=== PATIENT | female | born 1935 | race Caucasian/White ===

== ENCOUNTER → 2018-03-30 11:52 | Outpatient (CLI) | payer MEDICARE, OTHER, SELFPAY ==
[2018-03-30 12:18] LABS: Absolute Neutrophil Count 3.7 X10^3/uL (2.0-7.7); Basophil# 0.02 X10^3/uL; Basophil% 0.3 % (0-1); Eosinophil# 0.18 X10^3/uL; Eosinophils% 2.8 % (0-5); Hematocrit 38.2 % (37-47); Hemoglobin 11.9 g/dl (12.0-15.0); Lymphocyte % 27.7 % (19-41); Mean Corp Hgb Conc 31.2 g/gl (32-36); Mean Corpuscular Hgb 26.6 pg (27.0-32.0); Mean Corpuscular Volume 85.3 fL (81-99); Mean Platelet Vol. 10.2 fl (6.2-12.0); Monocyte# 0.83 X10^3/uL; Monocyte% 12.8 % (0-10); Neutrophil # 3.66 X10^3/uL (2.7-7.7); Neutrophil % 56.2 % (47-70); Platelet Count 354 K/mm3 (150-450); RBC Distribution Width CV 15.1 % (11.6-14.6); RBC Distribution Width SD 47.3 fl (35.1-43.9); Red Blood Count 4.48 M/mm3 (4.2-5.4); White Blood Count 6.5 K/mm3 (4.4-11.0)
[2018-03-30 12:19] LABS: POSITIVE COUNT NO; POSITIVE DIFFERENTIAL NO; POSITIVE MORPHOLOGY NO
[2018-03-30 12:55] LABS: Vitamin D,25 Hydroxy 29.9 ng/mL (29.95-100.01)
[2018-03-30 12:56] LABS: ALB/GLOB Ratio 0.9 RATIO (0.9-2.4); AST(SGOT) 27 U/L (15-37); Alanine Aminotransfer ALT/SGPT 29 U/L (13-56); Albumin, Serum 3.8 g/dL (3.2-5.0); Alkaline Phosphatase 97 U/L (45-117); Anion Gap 5 (5-15); BUN 16 mg/dL (7-18); Calcium,Total 9.4 mg/dL (8.5-10.1); Chloride 103 mmol/L (98-107); EST Glomerular Filtration Rate 56 mL/min (>60); Est Glom Filt Rate - Afr Amer 68 mL/min (>60); Globulin 4.3 g/dL (2.2-4.2); Glucose 83 mg/dL (74-106); Potassium 4.8 mmol/L (3.5-5.1); Protein, Total 8.1 g/dL (6.4-8.2); Sodium Level 137 mmol/L (136-145); Thyroid Stim Hormone (TSH) 1.35 uIU/mL (0.358-3.74)
== END ==
PROVIDERS: Family Provider Family Medicine Geriatric Medicine; PCP Family Medicine Geriatric Medicine; Visit Provider Family Medicine Geriatric Medicine
DX: I10 Essential (primary) hypertension (principal); E55.9 Vitamin D deficiency, unspecified
CPT/HCPCS: 36415; 80053; 82306; 84443; 85025

== ENCOUNTER → 2018-04-05 06:01 | Outpatient (CLI) | payer MEDICARE, OTHER, SELFPAY ==
--- NOTE | 2018-04-05 09:24 | STRESSREP ---
Stress Test Report Date: 04/05/2018 Procedure: Exercise tolerance test/imaging study Indications: Chest pain Consent: Per the patient Procedure: The patient exercised on a Robert protocol for 4 minutes completing Stage 1 and 1 minute of Stage II achieving a peak heart rate of 122 bpm (88 % predicted maximal heart rate) with a peak blood pressure 150/82 mmHg and a peak MET capacity of 5 METs. The baseline ECG demonstrated normal sinus rhythm; possible anterior IA of indeterminate age; possible inferior IA of indeterminate age. The peak exercise ECG demonstrated no obvious ECG changes. There were rare PVCs during recovery. The functional capacity was considered average. There was no complaint of chest discomfort during exercise or recovery. The examination was discontinued secondary to you and leg discomfort. Impression: 1. Technically adequate (percent predicted maximal heart rate greater than 85%) exercise tolerance test 2. Peak exercise ECG demonstrated no obvious ECG changes 3. There were rare PVCs during recovery. 4. Nuclear images pending Myocardial perfusion imaging study: Technique: The patient was injected with 11.3 mCi of technetium 99m Cardiolite and subsequently rest SPECT Cardiolite nuclear imaging was obtained in the horizontal long, vertical long, and short axis views. The patient exercised on a Robert protocol for 4 minutes completing Stage 1 and 1 minute of Stage II achieving a peak heart rate of 122 bpm (88 % predicted maximal heart rate) with a peak blood pressure 150/82 mmHg and a peak MET capacity of 5 METs. The patient was injected with 33.7 mCi of technetium 99m Cardiolite and subsequently stress SPECT Cardiolite nuclear imaging was obtained in the horizontal long, vertical long, and short axis views. A gated Cardiolite study at peak stress was obtained. Interpretation: Rest and stress SPECT Cardiolite nuclear imaging status post realignment, normalization, and attenuation correction, demonstrates the appearance of diminished myocardial perfusion/tracer uptake in portions of the basal inferior septal and basal inferior segments without significant change between rest and stress. Diminished end systolic thickening and brightening in the aforementioned areas. The gated Cardiolite study demonstrates diminished myocardial thickening and inward wall motion in the aforementioned areas. The reported LVEF is 58 %. Impression: 1. Rest and stress SPECT Cardiolite nuclear imaging demonstrate an area of diminished myocardial perfusion/tracer uptake in portions of the basal inferoseptal and basal inferior segments without significant change between rest and stress appearing compatible with an area of previous myocardial injury/infarction, however, contribution from soft tissue attenuation/artifact cannot necessarily be excluded. There are no myocardial perfusion changes consider diagnostic for associated stress-induced myocardial ischemia. 2. The gated Cardiolite study reports an LVEF of 58 %. This note was generated with BookNowation software. It may contain incorrect words, spelling, and punctuation that were not noted in checking the note before signing.
--- NOTE | 2018-04-05 09:30 | STRESSREP_ITS ---
Stress Test Report Date: 04/05/2018 Procedure: Exercise tolerance test/imaging study Indications: Chest pain Consent: Per the patient Procedure: The patient exercised on a Robert protocol for 4 minutes completing Stage 1 and 1 minute of Stage II achieving a peak heart rate of 122 bpm (88 % predicted maximal heart rate) with a peak blood pressure 150/82 mmHg and a peak MET capacity of 5 METs. The baseline ECG demonstrated normal sinus rhythm; possible anterior KS of indeterminate age; possible inferior KS of indeterminate age. The peak exercise ECG demonstrated no obvious ECG changes. There were rare PVCs during recovery. The functional capacity was considered average. There was no complaint of chest discomfort during exercise or recovery. The examination was discontinued secondary to you and leg discomfort. Impression: 1. Technically adequate (percent predicted maximal heart rate greater than 85% ) exercise tolerance test 2. Peak exercise ECG demonstrated no obvious ECG changes 3. There were rare PVCs during recovery. 4. Nuclear images pending Myocardial perfusion imaging study: Technique: The patient was injected with 11.3 mCi of technetium 99m Cardiolite and subsequently rest SPECT Cardiolite nuclear imaging was obtained in the horizontal long, vertical long, and short axis views. The patient exercised on a Robert protocol for 4 minutes completing Stage 1 and 1 minute of Stage II achieving a peak heart rate of 122 bpm (88 % predicted maximal heart rate) with a peak blood pressure 150/82 mmHg and a peak MET capacity of 5 METs. The patient was injected with 33.7 mCi of technetium 99m Cardiolite and subsequently stress SPECT Cardiolite nuclear imaging was obtained in the horizontal long, vertical long, and short axis views. A gated Cardiolite study at peak stress was obtained. Interpretation: Rest and stress SPECT Cardiolite nuclear imaging status post realignment, normalization, and attenuation correction, demonstrates the appearance of diminished myocardial perfusion/tracer uptake in portions of the basal inferior septal and basal inferior segments without significant change between rest and stress. Diminished end systolic thickening and brightening in the aforementioned areas. The gated Cardiolite study demonstrates diminished myocardial thickening and inward wall motion in the aforementioned areas. The reported LVEF is 58 %. Impression: 1. Rest and stress SPECT Cardiolite nuclear imaging demonstrate an area of diminished myocardial perfusion/tracer uptake in portions of the basal inferoseptal and basal inferior segments without significant change between rest and stress appearing compatible with an area of previous myocardial injury/ infarction, however, contribution from soft tissue attenuation/artifact cannot necessarily be excluded. There are no myocardial perfusion changes consider diagnostic for associated stress-induced myocardial ischemia. 2. The gated Cardiolite study reports an LVEF of 58 %. This note was generated with Pronotaation software. It may contain incorrect words, spelling, and punctuation that were not noted in checking the note before signing.
== END ==
PROVIDERS: Family Provider Family Medicine Geriatric Medicine; PCP Family Medicine Geriatric Medicine; Visit Provider Family Medicine Geriatric Medicine
DX: R07.9 Chest pain, unspecified (principal)
CPT/HCPCS: 78452; 93017; A9500; A4216

== ENCOUNTER → 2018-05-09 10:48 | Outpatient (CLI) | payer MEDICARE, OTHER, SELFPAY ==
--- NOTE | 2018-05-09 10:50 | ECHOD_ITS ---
Reason For Study: Chest Pain Procedure This was a 2D Doppler, Color Flow transthoracic echocardiogram. Exam performed in department. Left Ventricle Normal LV size. Sigmoid septum. Left ventricular systolic function is normal. The estimated ejection fraction is 60 %. Transmitral diastolic flow velocities suggest mild (stage 1) diastolic dysfunction (reversed pattern). Mild segmental systolic dysfunction (see wall motion). The rest of the wall segments are normal. Posterior-Basal: Hypokinetic. Basal inferoseptal: Hypokinetic. Infero -Basal: Akinetic. Right Ventricle Normal RV size. Normal systolic function. Atria Normal left atrium. Normal right atrium. Mitral Valve Normal mitral valve. Mild-Moderate (1-2+) eccentric mitral valve insufficiency. Tricuspid Valve Normal tricuspid valve. Mild tricuspid valve insufficiency. Pulmonary artery systolic pressure is 30 mmHg. Aortic Valve Trisinus/trileaflet aortic valve. Mild focal aortic valve calcification. Pulmonic Valve Normal pulmonic valve. Great Vessels Mild to moderately dilated aortic root. The pulmonary artery is normal size. Normal inferior vena cava. Pericardium/Pleural No pericardial effusion. MMode/2D Measurements & Calculations LVIDd: 3.6 cm IVSd: 1.3 cm Ao root diam: 4.0 cm LVIDs: 3.1 cm LVPWd: 0.95 cm RVDd: 2.7 cm FS: 13.7 % LAV(MOD-bp): 56.6 ml LVAd ap4: 29.8 cm2 SV(MOD-sp4): 39.8 ml LAV(MOD-bp) Indexed: 31.6 ml/m2 EDV(MOD-sp4): 90.3 ml LAV(MOD-sp2): 54.0 ml EDV(sp4-el): 95.6 ml LAV(MOD-sp4): 60.3 ml LVAs ap4: 20.8 cm2 ESV(MOD-sp4): 50.4 ml ESV(sp4-el): 51.8 ml EF(MOD-sp4): 44.1 % EF(sp4-el): 45.8 % SV(sp4-el): 43.8 ml LA A4 area: 18.7 cm2 RA A4 area: 11.8 cm2 Time Measurements MV dec time: 0.13 sec Doppler Measurements & Calculations MV E max daniel: 116.6 cm/sec Lat Peak E' Daniel: 6.5 cm/sec Med Peak E' Daniel: 5.2 cm/sec MV A max daniel: 155.7 cm/sec E/E' lat: 18.1 E/E' med: 22.3 MV E/A: 0.75 MV V2 max: 182.0 cm/sec MV P1/2t max daniel: 136.8 cm/sec Ao V2 max: 131.0 cm/sec MV max P.3 mmHg MV P1/2t: 75.3 msec Ao max P.9 mmHg MV V2 mean: 96.2 cm/sec MV dec slope: 531.9 cm/sec2 Ao V2 mean: 94.6 cm/sec MV mean P.4 mmHg MVA(P1/2t): 2.9 cm2 Ao mean P.8 mmHg MV V2 VTI: 41.4 cm Ao V2 VTI: 26.6 cm LV V1 max: 104.0 cm/sec PA V2 max: 75.1 cm/sec TR max daniel: 251.8 cm/sec LV V1 max P.3 mmHg TR max P.4 mmHg LV V1 mean P.0 mmHg LV V1 mean: 64.3 cm/sec LV V1 VTI: 18.3 cm Interpretation Summary Normal LV size. Left ventricular systolic function is normal. The estimated ejection fraction is 60 %. Transmitral diastolic flow velocities suggest mild (stage 1) diastolic dysfunction (reversed pattern). Mild tricuspid valve insufficiency. Pulmonary artery systolic pressure is 30 mmHg. Ordering Physician: Deangelo Dhillon Referring Physician: Deangelo Dhillon Performed By: Pete Gomez RCS
== END ==
PROVIDERS: Family Provider Family Medicine Geriatric Medicine; PCP Family Medicine Geriatric Medicine; Visit Provider Internal Medicine Cardiovascular Disease
DX: R07.89 Other chest pain (principal)
CPT/HCPCS: 93306

== ENCOUNTER → 2018-08-30 11:57 | Outpatient (CLI) | payer MEDICARE, OTHER, SELFPAY ==
--- NOTE | 2018-08-30 11:59 | RAD_ITS ---
STUDY: X-RAY CHEST REASON FOR EXAM: Female, 83 years old. Preop, no chest complaints TECHNIQUE: PA and lateral views of the chest. COMPARISON: Prior study 12/14/2015 FINDINGS: There is minimal right mid lung field fibrosis, stable in the interval. There is no demonstrated pleural abnormality. Normal size heart. Normal mediastinum and kraig. Normal visualized pulmonary arteries. There are calcified plaques of the thoracic aorta. There is demineralization of the osseous structures. Normal visualized ribs, clavicles, and shoulders. There is no demonstrated abnormality of the visualized soft tissue structures of the upper abdomen. RAD/Chest PA and Lateral IMPRESSION: Minimal right mid lung field fibrosis, stable in the interval. Calcified plaques of the thoracic aorta. Generalized osteopenia. No acute cardiopulmonary disease process is seen. Chest findings are stable in the interval. Electronically Signed: Michael Parks MD at 16:55 EDT , Service support ,
[2018-08-30 13:22] LABS: Absolute Lymphocyte Count 1.86 X10^3/ul (0.83-4.51); Absolute Neutrophil Count 3.8 X10^3/uL (2.0-7.7); Basophil# 0.03 X10^3/uL; Basophil% 0.4 % (0-1); Eosinophil# 0.22 X10^3/uL; Eosinophils% 3.3 % (0-5); Hematocrit 36.1 % (37-47); Hemoglobin 11.4 g/dl (12.0-15.0); Lymphocyte # 1.86 X10^3/ul (4.0); Lymphocyte % 27.8 % (19-41); Mean Corp Hgb Conc 31.6 g/gl (32-36); Mean Corpuscular Volume 85.5 fL (81-99); Mean Platelet Vol. 10.7 fl (6.2-12.0); Monocyte# 0.75 X10^3/uL; Monocyte% 11.2 % (0-10); Neutrophil # 3.82 X10^3/uL (2.7-7.7); POSITIVE COUNT NO; POSITIVE DIFFERENTIAL NO; POSITIVE MORPHOLOGY NO; Platelet Count 363 K/mm3 (150-450); RBC Distribution Width CV 14.9 % (11.6-14.6); RBC Distribution Width SD 45.3 fl (35.1-43.9); Red Blood Count 4.22 M/mm3 (4.2-5.4); White Blood Count 6.7 K/mm3 (4.4-11.0)
[2018-08-30 13:45] LABS: Anion Gap 10 (5-15); BUN 21 mg/dL (7-18); BUN/Creat Ratio 23.6 RATIO (10-20); Calcium,Total 8.9 mg/dL (8.5-10.1); Chloride 103 mmol/L (98-107); Creatinine, Serum 0.89 mg/dL (0.55-1.02); EST Glomerular Filtration Rate 64 mL/min (>60); Est Glom Filt Rate - Afr Amer 78 mL/min (>60); Glucose 104 mg/dL (74-106); Potassium 3.7 mmol/L (3.5-5.1); Sodium Level 140 mmol/L (136-145)
== END ==
PROVIDERS: Family Provider Family Medicine Geriatric Medicine; PCP Family Medicine Geriatric Medicine; Referring Provider Internal Medicine Cardiovascular Disease; Visit Provider Internal Medicine Cardiovascular Disease
DX: R94.39 Abnormal result of other cardiovascular function study (principal)
CPT/HCPCS: 36415; 71046; 80048; 85025

== ENCOUNTER 2018-09-03 07:00 | Day surgery (SDC) | payer MEDICARE, OTHER, SELFPAY ==
[2018-08-31 09:13] VITALS: BMI 28.1
--- NOTE | 2018-09-03 08:47 | CL.D_ITS ---
Patient Name: TRISTEN ZAMARRIPA Study Date: 09/03/2018 Performing: Deangelo Dhillon MD Ht: 64.17 inches 163 cm : 1935 Wt: 163.14 lbs 74 kg Age: 83 Gender: female BSA: 1.8 PROCEDURE(S) PERFORMED [id number]/COR/LV CLINICAL PROFILE AND INDICATIONS Indications: Suspected CAD Heart Failure: None Stress/Imaging Stress Test w/SPECT MPI: Yes Result: NegativeStress Test with SPECT MPI: Negative Angina Classification Anginal Classification w/in 2 Weeks: No symptoms CAD Presentations: No Sxs, no angina. CONCLUSIONS Moderate coronary artery disease involving moderately severe mid to distal circumflex artery with tot ally occluded posterior descending artery. Inferior basal akinesis and posterior hypokinesis is note d. RECOMMENDATIONS Medical therapy DESCRIPTION OF PROCEDURE The patient arrived to the procedure lab. The risks and benefits of the procedure as well as a full d escription of our services here and current unavailability of surgical backup were fully explained to the patient and/or their significant other prior to the catheterization. The Timeout was completed, verifying the correct patient and procedure. The patient's procedural site was prepped and draped in the usual fashion. Local anesthetic was given subcutaneously to right radial region with Lidocaine 2% . Using a modified Seldinger technique, arterial access was obtained via the right radial artery, a 6 Fr sheath was inserted. Left Coronary Artery selective angiography was performed in multiple views u sing a 5 Fr. 4.0 [place] catheter. Left Ventriculography was performed in FRIEDMAN projection using a 5 Fr. Pigtail catheter. LV to AO pullback pressures were then recorded.The arterial sheath was pulled and a TR Band was applied for hemostasis CORONARY ANGIOGRAPHY DOMINANCE: Right Dominant LEFT HEART ASSESSMENT Left Ventricular Ejection Fraction: by LV Gram 60 % Inferior Basal Akinesis. Posterior Basal Hypokinesis - Moderate Normal Left Ventricular systolic function LEFT MAIN: Mild calcification, Mild luminal irregularities LEFT ANTERIOR DECENDING ARTERY: Mild luminal irregularities less than 30% DIAGONAL 1: Ostial - 50 % Stenosis CIRCUMFLEX ARTERY: Mild luminal irregularities less than 30% MID CIRC: 65 % Stenosis RIGHT CORONARY ARTERY: PROX RCA: Mild luminal irregularities MID RCA: Moderate luminal irregularities up to 50% DISTAL RCA: 70 % Stenosis RT PDA: Ostial - is occluded COLLATERAL FLOW: Collateral flow from Left to Right COMPLICATIONS No Complications PROCEDURE MEDICATIONS Versed 0.5 mg IV Fentanyl 25 mcg IV Fentanyl 25 mcg IV Oxygen: 2 L/min via nasal cannula IV Bolus: .9 NaCl 200 ml total 09/03/2018 08:09:48 SUMMARY OF HEMODYNAMIC DATA Time AIR REST ECG 07:18:26 AO 100/58 (77) SA 08:09:02 LV 120/0, 9 08:26:16 LV 126/2, 12 08:26:23 LV 124/3, 14 08:27:29 LV 119/3, 12 08:27:35 LVp 131/3, 15 08:27:40 AOp 132/59 (91) 08:27:46 Signed By Deangelo Dhillon MD On 09/03/2018 08:46:25 Deangelo Dhillon MD
== END 2018-09-03 11:10 | disposition home or self-care (01) ==
LOC: CLSP 07:01
PROVIDERS: Family Provider Family Medicine Geriatric Medicine; PCP Family Medicine Geriatric Medicine; Referring Provider Internal Medicine Cardiovascular Disease; Visit Provider Internal Medicine Cardiovascular Disease
DX: I25.10 Atherosclerotic heart disease of native coronary artery without angina pectoris (principal); I25.82 Chronic total occlusion of coronary artery; I10 Essential (primary) hypertension; D64.9 Anemia, unspecified; K21.9 Gastro-esophageal reflux disease without esophagitis; E55.9 Vitamin D deficiency, unspecified; F41.9 Anxiety disorder, unspecified; R94.31 Abnormal electrocardiogram [ECG] [EKG]; R94.39 Abnormal result of other cardiovascular function study; Z79.02 Long term (current) use of antithrombotics/antiplatelets; Z79.82 Long term (current) use of aspirin; Z79.899 Other long term (current) drug therapy; Z90.710 Acquired absence of both cervix and uterus
CPT/HCPCS: 93458; 99152; 99153; Q9967; C1769; C1894

== ENCOUNTER → 2019-04-11 14:06 | Outpatient (CLI) | payer MEDICARE, OTHER, SELFPAY ==
[2018-12-06 15:42] VITALS: BMI 28.8
[2019-04-11 17:37] LABS: Absolute Lymphocyte Count 1.96 X10^3/ul (0.83-4.51); Absolute Neutrophil Count 2.8 X10^3/uL (2.0-7.7); Basophil# 0.02 X10^3/uL; Basophil% 0.4 % (0-1); Eosinophils% 3.5 % (0-5); Hematocrit 33.7 % (37-47); Hemoglobin 10.6 g/dl (12.0-15.0); Lymphocyte # 1.96 X10^3/ul (4.0); Lymphocyte % 34.6 % (19-41); Mean Corp Hgb Conc 31.5 g/gl (32-36); Mean Corpuscular Hgb 26.5 pg (27.0-32.0); Mean Corpuscular Volume 84.3 fL (81-99); Mean Platelet Vol. 11.5 fl (6.2-12.0); Monocyte# 0.69 X10^3/uL; Monocyte% 12.2 % (0-10); Neutrophil # 2.79 X10^3/uL (2.7-7.7); Neutrophil % 49.1 % (47-70); Platelet Count 307 K/mm3 (150-450); RBC Distribution Width CV 14.9 % (11.6-14.6); RBC Distribution Width SD 44.9 fl (35.1-43.9); White Blood Count 5.7 K/mm3 (4.4-11.0)
[2019-04-11 17:48] LABS: POSITIVE COUNT NO; POSITIVE DIFFERENTIAL NO; POSITIVE MORPHOLOGY NO
[2019-04-11 17:51] LABS: ALB/GLOB Ratio 0.9 RATIO (0.9-2.4); AST(SGOT) 20 U/L (15-37); Alanine Aminotransfer ALT/SGPT 27 U/L (13-56); Albumin, Serum 3.4 g/dL (3.2-5.0); Alkaline Phosphatase 101 U/L (45-117); Anion Gap 5 (5-15); BUN 15 mg/dL (7-18); BUN/Creat Ratio 16.6 RATIO (10-20); Chloride 107 mmol/L (98-107); EST Glomerular Filtration Rate 63 mL/min (>60); Est Glom Filt Rate - Afr Amer 77 mL/min (>60); Globulin 3.8 g/dL (2.2-4.2); Glucose 85 mg/dL (74-106); Protein, Total 7.2 g/dL (6.4-8.2); Sodium Level 139 mmol/L (136-145); Thyroid Stim Hormone (TSH) 0.96 uIU/mL (0.358-3.74)
[2019-04-11 17:54] LABS: Vitamin D,25 Hydroxy 23.8 ng/mL (29.95-100.01)
== END ==
PROVIDERS: Family Provider Family Medicine Geriatric Medicine; PCP Family Medicine Geriatric Medicine; Visit Provider Family Medicine Geriatric Medicine
DX: I10 Essential (primary) hypertension (principal); E55.9 Vitamin D deficiency, unspecified
CPT/HCPCS: 36415; 80053; 82306; 84443; 85025

== ENCOUNTER → 2020-04-14 13:35 | Outpatient (CLI) | payer MEDICARE, OTHER, SELFPAY ==
[2020-01-29 14:44] VITALS: BMI 28.6
[2020-04-14 16:20] LABS: Absolute Lymphocyte Count 1.88 X10^3/uL (0.83-4.51); Basophil# 0.03 X10^3/uL; Basophil% 0.4 % (0-1); Eosinophil# 0.13 X10^3/uL; Eosinophils% 1.9 % (0-5); Hematocrit 38.6 % (37-47); Hemoglobin 12.1 g/dL (12.0-15.0); Lymphocyte # 1.88 X10^3/ul (4.0); Lymphocyte % 28.2 % (19-41); Mean Corp Hgb Conc 31.3 g/dL (32-36); Mean Corpuscular Hgb 28.1 pg (27.0-32.0); Mean Corpuscular Volume 89.6 fL (81-99); Mean Platelet Vol. 11.1 fl (6.2-12.0); Monocyte# 0.58 X10^3/uL; Monocyte% 8.7 % (0-10); NRBC Flagged by Analyzer 0 % (0-5); Neutrophil # 4.02 X10^3/uL (2.7-7.7); Neutrophil % 60.4 % (47-70); Platelet Count 336 K/mm3 (150-450); RBC Distribution Width CV 14.2 % (11.6-14.6); RBC Distribution Width SD 46.1 fl (35.1-43.9); Red Blood Count 4.31 M/mm3 (4.2-5.4); White Blood Count 6.7 K/mm3 (4.4-11.0)
[2020-04-14 16:47] LABS: AST(SGOT) 28 U/L (15-37); Alanine Aminotransfer ALT/SGPT 38 U/L (13-56); Albumin, Serum 3.8 g/dL (3.2-5.0); Alkaline Phosphatase 92 U/L (45-117); Anion Gap 9 (5-15); BUN 18 mg/dL (7-18); BUN/Creat Ratio 19.9 RATIO (10-20); Calcium,Total 9.3 mg/dL (8.5-10.1); Chloride 100 mmol/L (98-107); Creatinine, Serum 0.91 mg/dL (0.55-1.02); EST Glomerular Filtration Rate 63 mL/min (>60); Est Glom Filt Rate - Afr Amer 76 mL/min (>60); Globulin 3.9 g/dL (2.2-4.2); Glucose 87 mg/dL (74-106); Potassium 3.9 mmol/L (3.5-5.1); Protein, Total 7.7 g/dL (6.4-8.2); Sodium Level 135 mmol/L (136-145); Thyroid Stim Hormone (TSH) 0.65 uIU/mL (0.358-3.74)
[2020-04-14 17:11] LABS: Vitamin D,25 Hydroxy 22.1 ng/mL
== END ==
PROVIDERS: PCP Family Medicine Geriatric Medicine; Visit Provider Family Medicine Geriatric Medicine
DX: E55.9 Vitamin D deficiency, unspecified (principal); I10 Essential (primary) hypertension
CPT/HCPCS: 36415; 80053; 82306; 84443; 85025

== ENCOUNTER → 2021-04-15 13:06 | Outpatient (CLI) | payer MEDICARE, OTHER, SELFPAY ==
[2021-01-26 11:01] VITALS: BMI 27.6
[2021-04-15 17:18] LABS: Absolute Lymphocyte Count 1.48 X10^3/uL (0.83-4.51); Absolute Neutrophil Count 6.4 X10^3/uL (2.0-7.7); Basophil# 0.03 X10^3/uL; Basophil% 0.3 % (0-1); Eosinophil# 0.09 X10^3/uL; Hematocrit 36.3 % (37-47); Hemoglobin 11.4 g/dL (12.0-15.0); Lymphocyte # 1.48 X10^3/ul (0.83-4.51); Lymphocyte % 16.6 % (19-41); Mean Corp Hgb Conc 31.4 g/dL (32-36); Mean Corpuscular Hgb 27.3 pg (27.0-32.0); Mean Corpuscular Volume 87.1 fL (81-99); Mean Platelet Vol. 11.1 fl (6.2-12.0); Monocyte# 0.94 X10^3/uL; Monocyte% 10.5 % (0-10); NRBC Flagged by Analyzer 0 % (0-5); Neutrophil # 6.38 X10^3/uL (2.7-7.7); Neutrophil % 71.4 % (47-70); Platelet Count 341 K/mm3 (150-450); RBC Distribution Width CV 14.7 % (11.6-14.6); RBC Distribution Width SD 46.9 fl (35.1-43.9); Red Blood Count 4.17 M/mm3 (4.2-5.4); White Blood Count 8.9 K/mm3 (4.4-11.0)
[2021-04-15 17:36] LABS: Vitamin D,25 Hydroxy 18.1 ng/mL
[2021-04-15 17:49] LABS: ALB/GLOB Ratio 1.1 RATIO (0.9-2.4); AST(SGOT) 23 U/L (15-37); Alanine Aminotransfer ALT/SGPT 27 U/L (13-56); Alkaline Phosphatase 86 U/L (45-117); Anion Gap 7 (5-15); BUN 21 mg/dL (7-18); BUN/Creat Ratio 18.6 RATIO (10-20); Calcium,Total 9.4 mg/dL (8.5-10.1); Chloride 101 mmol/L (98-107); Creatinine, Serum 1.13 mg/dL (0.55-1.02); EST Glomerular Filtration Rate 49 mL/min (>60); Est Glom Filt Rate - Afr Amer 59 mL/min (>60); Globulin 3.8 g/dL (2.2-4.2); Glucose 76 mg/dL (74-106); Potassium 4.1 mmol/L (3.5-5.1); Protein, Total 7.8 g/dL (6.4-8.2); Sodium Level 133 mmol/L (136-145); Thyroid Stim Hormone (TSH) 0.96 uIU/mL (0.358-3.74)
== END ==
PROVIDERS: PCP Family Medicine Geriatric Medicine; Visit Provider Family Medicine Geriatric Medicine
DX: E55.9 Vitamin D deficiency, unspecified (principal); I10 Essential (primary) hypertension
CPT/HCPCS: 36415; 80053; 82306; 84443; 85025

== ENCOUNTER → 2021-08-20 13:01 | Outpatient (CLI) | payer MEDICARE, OTHER, SELFPAY | PROVIDERS: PCP Family Medicine Geriatric Medicine; Referring Provider Family Medicine Geriatric Medicine; Visit Provider Family Medicine Geriatric Medicine | DX: R68.83 Chills (without fever) (principal) | CPT/HCPCS: 87635; 87804; 87807; C9803; U0005; U0003 ==

== ENCOUNTER 2021-12-22 14:44 | Outpatient (CLI) | payer MEDICARE, OTHER, SELFPAY ==
--- NOTE | 2021-12-22 14:50 | RAD_ITS ---
STUDY: X-RAY - LUMBAR SPINE REASON FOR EXAM: Female, 86 years old. LOW BACK PAIN TECHNIQUE: 2 view(s) of the lumbar spine were obtained. COMPARISON: None FINDINGS: Normal lumbar lordosis. There is a dextroscoliosis. Mild depression of the superior endplate at L1. Normal disc space heights. Generalized osteopenia. The soft tissue structures are unremarkable. Calcified aorta. RAD/Lumbar Spine 2 or 3 Views IMPRESSION: Degenerative changes and scoliosis of the lumbar spine. Mild central depression of the L1 superior endplate. Electronically Signed: Iglesia Cano DO at 16:12 EST Reading Location ID and State: [facility] / [place] Tel [phone], Service support ,
== END 2021-12-22 23:59 | disposition short-term general hospital (02) ==
LOC: RAD 14:45
PROVIDERS: PCP Family Medicine Geriatric Medicine; Visit Provider Family Medicine Geriatric Medicine
DX: M54.50 Low back pain, unspecified (principal)
CPT/HCPCS: 72100

== ENCOUNTER 2022-01-21 10:00 | Outpatient (RCR) | payer MEDICARE, OTHER, SELFPAY ==
--- NOTE | 2022-01-11 15:06 | HP.PTEVAL ---
Patient's Visit Information TRISTEN ZAMARRIPA is a 86 year old F referred to Physical Therapy by Dr. David Mace MD with a diagnosis of LOW BACK PAIN. Date of Evaluation: 01/11/22 Physical Therapist: Walker Barros, PT, Cert MDT, OCS - Visit Plan Frequency: 2x /Week Duration: 4 Weeks Plan: PT INTERVENTIONS POSTURAL EX'S ,DLS ABD/BACK ,LE FLEXABLITY AND MODALTIES - Subjective This 86 y/o female presents to physical therapy with low back pain. Patient has had back pain since Dec 17 pushing and pulling a tot. Patient seen DR had x-rays DDD. Patient had 7 day for pain MEDS. Patient pain located symmetrical lumbar. Aggravating factors bending ,lifting ,getting up from chair to straighten up. Alleviating factors okay with standing and walking, heat. Denies paresthesia/tingling-. Bowel/bladder -. Coughing/sneezing +. Patient able to sleep at night. Patient pain affects QOL and function. SOCAIL: . VOCATION: retired - Pain Bilateral Back Pain Intensity (Out of 10): 3 Pain Intensity Range: 10 - Objective POSTURE: mild forward posture. GAIT: reciprocal pattern. NEURO: denies paresthesia/tingling , reflexes L3-4,L4-5,L5-S1. PALAPTION: tender LS. SYMMTRIES: ALIGN. MMT: quads/hams 4/5,hup flexion 4-/5,hp abd 4-/5,ankle 4/5. LUMBAR ROM: flexion mod loss pain ( + gowers sign) ,extension mod loss, side glides mod loss. FLEXABLITY: hamstrings mild tight - Special Tests L/S Slump test left side: Negative L/S Left Straight Leg Raise: Negative L/S Right Straight Leg Raise: Negative Lumbar Standing: Flexion - Mechanical Response: No effect Lumbar Standing: Flexion - Symptoms During Testing: Increases Lumbar Standing: Flexion - Symptoms After Testing: No worse Lumbar Standing: Extension - Mechanical Response: No effect Lumbar Standing: Extension - Symptoms During Testing: Increases Lumbar Standing: Extension - Symptoms After Testing: No worse Lumbar Standing: Right Side Glides - Mechanical Response: No effect Lumbar Standing: Right Side [place] - Symptoms During Testing: Increases Lumbar Standing: Right Side [place] - Symptoms After Testing: No worse Lumbar Standing: Left Side [place] - Mechanical Response: No effect Lumbar Standing: Left Side [place] - Symptoms During Testing: Increases Lumbar Standing: Left Side [place] - Symptoms After Testing: No worse Lumbar Lying: Flexion - Mechanical Response: No effect Lumbar Lying: Flexion - Symptoms During Testing: Increases Lumbar Lying: Flexion - Symptoms After Testing: No worse - Balance/Special Test Scores Oswestry Low Back Score: 26 - Goals Goal 1:: Patient to be I with HEP Goal 2:: Patient to improve posture/body mechanics 80% of the time. Goal Time Frame: 4-6 Weeks Goal 3:: Patient to demonstrate 50% improvement with decrease pain and function Goal Time Frame: 4-6 Weeks Goal 4:: Patient to improve lumbar ROM for function of recovery to lift laundry basket Goal Time Frame: 4-6 Weeks Goal 5:: Patient to improve back oswestry score by 5 points to improve QOL and function Goal Time Frame: 4-6 Weeks - Rehabilitation Potential Physical Therapy Diagnosis: Patient strained low back while lifting tot thus has pain ,pain with motion testing, and positioning thus will benefit from skilled PT Rehabilitation Potential: Good - Anticipated Interventions Patient/Client Instruction: Educate patient on: Condition, Plan of Care For the Purpose of:: To decrease pain, To increase ROM, To improve muscle performance and motor function, To improve ability to perform ADL's, To increase tolerance to activity/condition/position, To improve performance and independence with ADL's, To improve ability of physical actions for home/community/work/leisure, To improve health of tissue, To decrease soft tissue restriction, To increase flexibility/ROM Therapeutic Exercise to Include: Strength training, Postural training, Flexibilty training, Active ROM, Dynamic Lumbar Stabilization For the Purpose of:: To decrease pain, To increase ROM, To improve muscle performance and motor function, To improve ability to perform ADL's, To increase tolerance to activity/condition/position, To improve ability of physical actions for home/community/work/leisure, To improve health of tissue, To decrease soft tissue restriction, To increase flexibility/ROM, To reduce risk of recurrence Manual Therapy Techniques to Include: Soft tissue mobilization For the Purpose of:: To decrease pain, To increase ROM, To improve nutrient delivery to tissue, To increase oxygenation perfusion, To improve health of tissue, To decrease soft tissue restriction TENS: Yes IF ES: Yes Cryotherapy (ice pack, ice massage): Yes Thermo therapy (hot pack): Yes Ultrasound (thermal/non thermal): Yes For the Purpose of:: To decrease pain, To increase ROM, To improve nutrient delivery to tissue, To increase oxygenation perfusion, To improve health of tissue, To decrease soft tissue restriction Thank you for the opportunity to evaluate your patient. For Medicare and Medicare HMO plans, please review the plan of care and approve it. It will need to be FAXED BACK to us at [phone] for Medicare purposes. For Medicare only, by signing this I certify the plan of care. Please let me know if there are questions or concerns regarding this plan of care. Physician Signature: Date:
== END 2022-01-21 19:00 | disposition home or self-care (01) ==
LOC: PT 10:00
PROVIDERS: PCP Family Medicine Geriatric Medicine; Referring Provider Family Medicine Geriatric Medicine; Visit Provider Family Medicine Geriatric Medicine
DX: M54.50 Low back pain, unspecified (principal)
CPT/HCPCS: 97110; 97162

== ENCOUNTER 2022-01-25 11:30 | Outpatient (CLI) | payer MEDICARE, OTHER, SELFPAY ==
--- NOTE | 2022-01-25 11:36 | RAD_ITS ---
STUDY: X-RAY - RIGHT KNEE REASON FOR EXAM: Female, 87 years old. KNEE PAIN TECHNIQUE: 3 view(s) of the knee. COMPARISON: 01/13/2014 FINDINGS: Normal visualized distal femur. Normal visualized proximal tibia and fibula. Normal proximal tibiofibular articulation. There is moderate degenerative arthrosis of the medial femorotibial compartment with moderate joint space narrowing. There is mild degenerative arthrosis of the lateral femorotibial compartment. There is mild degenerative arthrosis of the patellofemoral articulation. The soft tissue structures are unremarkable. RAD/Knee 3 Views IMPRESSION: Degenerative arthrosis. Electronically Signed: Yariel Manrique MD at 12:16 EST ,
--- NOTE | 2022-01-25 11:36 | RAD_ITS ---
STUDY: X-RAY CHEST REASON FOR EXAM: Female, 87 years old. cad TECHNIQUE: PA and lateral views of the chest. COMPARISON: 08/30/2018 FINDINGS: The lungs are clear and expanded. There is no demonstrated pleural abnormality. Normal size heart. Normal mediastinum and kraig. Normal visualized pulmonary arteries. Normal visualized aortic arch and descending thoracic aorta. Normal visualized thoracic spine. Normal visualized ribs, clavicles, and shoulders. There is no demonstrated abnormality of the visualized soft tissue structures of the upper abdomen. RAD/Chest PA and Lateral IMPRESSION: Normal x-ray examination of the chest. Electronically Signed: Yariel Manrique MD at 12:15 EST ,
--- NOTE | 2022-01-25 11:36 | RAD_ITS ---
STUDY: X-RAY - RIGHT ANKLE REASON FOR EXAM: Female, 87 years old. ANKLE PAIN TECHNIQUE: 3 view(s) of the ankle. COMPARISON: None. FINDINGS: Normal visualized distal tibia and fibula. Normal medial and lateral malleoli. Normal tibiotalar articulation and ankle mortise. Normal visualized talus and calcaneus. The visualized subtalar, talonavicular, calcaneocuboid and tarsal articulations are normal. Lateral soft tissue swelling consistent with ligamentous injury. RAD/Ankle min 3 Views IMPRESSION: No acute fracture or dislocation. Lateral soft tissue swelling consistent with meniscal injury. Electronically Signed: Yariel Manrique MD at 12:14 EST ,
[2022-01-25 12:49] LABS: Absolute Lymphocyte Count 1.33 X10^3/uL (0.83-4.51); Absolute Neutrophil Count 5.7 X10^3/uL (2.0-7.7); Basophil# 0.01 X10^3/uL; Basophil% 0.1 % (0-1); Eosinophil# 0.05 X10^3/uL; Eosinophils% 0.6 % (0-5); Hematocrit 32.1 % (37-47); Hemoglobin 9.8 g/dL (12.0-15.0); Lymphocyte # 1.33 X10^3/ul (0.83-4.51); Lymphocyte % 16.8 % (19-41); Mean Corp Hgb Conc 30.5 g/dL (32-36); Mean Corpuscular Hgb 24.3 pg (27.0-32.0); Mean Corpuscular Volume 79.7 fL (81-99); Mean Platelet Vol. 10.4 fl (6.2-12.0); Monocyte# 0.82 X10^3/uL; Monocyte% 10.4 % (0-10); NRBC Flagged by Analyzer 0 % (0-5); Neutrophil # 5.66 X10^3/uL (2.7-7.7); Neutrophil % 71.7 % (47-70); Platelet Count 395 K/mm3 (150-450); RBC Distribution Width CV 18.4 % (11.6-14.6); RBC Distribution Width SD 53.1 fl (35.1-43.9); Red Blood Count 4.03 M/mm3 (4.2-5.4); White Blood Count 7.9 K/mm3 (4.4-11.0)
[2022-01-25 13:18] LABS: Anion Gap 9 (5-15); BUN 26 mg/dL (7-18); BUN/Creat Ratio 23.6 RATIO (10-20); Calcium,Total 9.7 mg/dL (8.5-10.1); Chloride 102 mmol/L (98-107); EST Glomerular Filtration Rate 50 mL/min (>60); Est Glom Filt Rate - Afr Amer 61 mL/min (>60); Glucose 99 mg/dL (74-106); Potassium 3.9 mmol/L (3.5-5.1); Sodium Level 135 mmol/L (136-145)
== END 2022-01-25 23:59 | disposition home or self-care (01) ==
PROVIDERS: Internal Medicine Cardiovascular Disease; PCP Family Medicine Geriatric Medicine; Referring Provider Family Medicine Geriatric Medicine; Visit Provider Family Medicine Geriatric Medicine
DX: M17.11 Unilateral primary osteoarthritis, right knee (principal); M25.571 Pain in right ankle and joints of right foot; I10 Essential (primary) hypertension; R07.9 Chest pain, unspecified
CPT/HCPCS: 36415; 71046; 73562; 73610; 80048; 85025

== ENCOUNTER 2022-01-31 16:35 | Outpatient (CLI) | payer MEDICARE, OTHER, SELFPAY ==
[2022-01-31 17:06] LABS: Absolute Lymphocyte Count 1.53 X10^3/uL (0.83-4.51); Absolute Neutrophil Count 4.8 X10^3/uL (2.0-7.7); Basophil# 0.02 X10^3/uL; Basophil% 0.3 % (0-1); Eosinophil# 0.15 X10^3/uL; Eosinophils% 2.1 % (0-5); Hematocrit 29.1 % (37-47); Lymphocyte # 1.53 X10^3/ul (0.83-4.51); Mean Corp Hgb Conc 30.9 g/dL (32-36); Mean Corpuscular Hgb 24.4 pg (27.0-32.0); Mean Corpuscular Volume 78.9 fL (81-99); Mean Platelet Vol. 10.5 fl (6.2-12.0); Monocyte# 0.74 X10^3/uL; Monocyte% 10.1 % (0-10); NRBC Flagged by Analyzer 0 % (0-5); Neutrophil # 4.81 X10^3/uL (2.7-7.7); Neutrophil % 65.8 % (47-70); Platelet Count 369 K/mm3 (150-450); RBC Distribution Width CV 18.7 % (11.6-14.6); RBC Distribution Width SD 53.3 fl (35.1-43.9); RET-HE 28.5 pg (30-35); Red Blood Count 3.69 M/mm3 (4.2-5.4); Reticulocyte Count 2.06 % (0.5-1.5); White Blood Count 7.3 K/mm3 (4.4-11.0)
[2022-01-31 18:23] LABS: Vitamin B12 339 pg/mL (211-911)
[2022-01-31 18:35] LABS: Ferritin 38 ng/mL (8-252); Iron 27 ug/dL (50-170); Iron Binding Capacity,Total 381 ug/dL (250-450); PERCENT IRON SATURATION 7.1 % (15.0-55.0)
== END 2022-01-31 23:59 | disposition home or self-care (01) ==
LOC: POLAB3 16:36
PROVIDERS: PCP Family Medicine Geriatric Medicine; Visit Provider Family Medicine Geriatric Medicine
DX: D64.9 Anemia, unspecified (principal)
CPT/HCPCS: 36415; 82607; 82728; 82746; 83540; 83550; 85025; 85045

== ENCOUNTER 2022-02-07 07:00 | Day surgery (SDC) | payer MEDICARE, OTHER, SELFPAY ==
[2022-02-04 07:12] VITALS: BMI 27.3
--- NOTE | 2022-02-07 09:40 | CL.D_ITS ---
Patient Name: TRISTEN ZAMARRIPA Study Date: 02/07/2022 Performing: Deangelo Dhillon MD Ht: 64.17 inches 163 cm : 1935 Wt: 158.73 lbs 72 kg Age: 87 Gender: female BSA: 1.78 PROCEDURE(S) PERFORMED DC01-(33770)LHC/COR/LV CLINICAL PROFILE AND INDICATIONS Indications: Suspected CAD Heart Failure: None Stress/Imaging Stress/Image Study Performed: No CAD Presentations: Stable angina. 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 The ej ection fraction is preserved with segmental wall motion abnormalities involving the basal inferior wa ll. In comparison to the previous catheterization from 2018 the above findings appear to be similar RECOMMENDATIONS Would recommend aggressive medical therapy for now DESCRIPTION OF PROCEDURE The patient arrived to the procedure lab. The risks and benefits of the procedure as well as a full d escription of our services here and current unavailability of surgical backup were fully explained to the patient and/or their significant other prior to the catheterization. The Timeout was completed, verifying the correct patient and procedure. The patient's procedural site was prepped and draped in the usual fashion. Local anesthetic was given subcutaneously to right radial region with Lidocaine 2% . Using a modified Seldinger technique, arterial access was obtained via the right radial artery, a 6 Fr sheath was inserted. Left Coronary Artery selective angiography was performed in multiple views u sing a 5 Fr. 4.0 [place] catheter. Right Coronary Artery selective angiography was then performed in mu ltiple views using a 5 Fr. 4.0 [place] catheter. Left Coronary Artery selective angiography was perform ed in multiple views using a 5 Fr. JL3.5 catheter. Left Ventriculography was performed in FRIEDMAN projection using a 5 Fr. Pigtail catheter. LV to AO pullback pressures were then recorded.The art erial sheath was pulled and a TR Band was applied for hemostasis CORONARY ANGIOGRAPHY DOMINANCE: Right Dominant LEFT HEART ASSESSMENT Left Ventricular Ejection Fraction: by LV Gram 55 % Inferior Basal Hypokinesis - Severe Normal Left Ventricular systolic function LEFT MAIN: Angiographically normal LEFT ANTERIOR DESCENDING ARTERY: Proximal left anterior descending artery with 30% stenosis in mid se gment with diffuse stenosis but no areas with high-grade stenosis more than 40%. DIAGONAL 1: Ostial - 70 % Stenosis CIRCUMFLEX ARTERY: Proximal and ostial 70% stenosis and diffusely diseased vessel with mid 70% stenos is. First obtuse marginal branch with 90% stenosis in the mid circumflex artery also has an 80% sten osis. RIGHT CORONARY ARTERY: Dominant right coronary artery with diffuse proximal disease of up to 40% in t he posterior lateral vessel which is subtotally occluded and an ostial posterior descending artery wi th a 90% stenosis. COMPLICATIONS No Complications PROCEDURE MEDICATIONS Versed 1 mg IV Fentanyl 50 mcg IV Oxygen: 2 L/min via nasal cannula Heparin given IA 02/07/2022 08:40:33 Verapamil 2.5mg, Ntg 100mcgs, 3000 units of Heparin given IA 02/07/2022 08:40:33 SUMMARY OF HEMODYNAMIC DATA Time AIR REST ECG 07:28:12 ECG 08:05:35 Art 121/51 (75) 08:27:06 AO 92/47 (64) SA 08:40:17 LV 128/2, 11 08:57:59 LV 123/1, 7 08:58:06 LV 120/7, 12 08:58:37 LV 117/6, 11 08:58:43 LVp 117/4, 12 08:58:48 AOp 120/52 (80) 08:58:53 Signed By Deangelo Dhillon MD On 02/07/2022 9:39:29 AM Deangelo Dhillon MD
== END 2022-02-07 23:59 | disposition home or self-care (01) ==
LOC: CLSP 07:02
PROVIDERS: PCP Family Medicine Geriatric Medicine; Referring Provider Internal Medicine Cardiovascular Disease; Visit Provider Internal Medicine Cardiovascular Disease
DX: I25.118 Atherosclerotic heart disease of native coronary artery with other forms of angina pectoris (principal); I10 Essential (primary) hypertension; R07.9 Chest pain, unspecified; K21.9 Gastro-esophageal reflux disease without esophagitis; Z79.82 Long term (current) use of aspirin; Z79.899 Other long term (current) drug therapy
CPT/HCPCS: 93005; 93458; 99152; 99153; J7040; C1769; C1894; Q9967

== ENCOUNTER 2022-02-08 12:55 | Outpatient (CLI) | payer MEDICARE, OTHER, SELFPAY ==
[2022-02-08 13:38] LABS: Basophil# 0.03 X10^3/uL; Basophil% 0.4 % (0-1); Eosinophil# 0.17 X10^3/uL; Hematocrit 30.7 % (37-47); Hemoglobin 9.6 g/dL (12.0-15.0); Lymphocyte % 15.6 % (19-41); Mean Corp Hgb Conc 31.3 g/dL (32-36); Mean Corpuscular Hgb 24.6 pg (27.0-32.0); Mean Corpuscular Volume 78.7 fL (81-99); Mean Platelet Vol. 10.8 fl (6.2-12.0); Monocyte# 0.81 X10^3/uL; Monocyte% 9.7 % (0-10); NRBC Flagged by Analyzer 0 % (0-5); Neutrophil # 5.97 X10^3/uL (2.7-7.7); Neutrophil % 71.8 % (47-70); Platelet Count 384 K/mm3 (150-450); RBC Distribution Width CV 19.1 % (11.6-14.6); RBC Distribution Width SD 54.4 fl (35.1-43.9); White Blood Count 8.3 K/mm3 (4.4-11.0)
[2022-02-08 14:02] LABS: Homocysteine 11.7 umol/L (3.2-10.7)
[2022-02-14 21:33] LABS: Methylmalonic Acid Bld 362 nmol/L (0-378)
== END 2022-02-08 23:59 | disposition home or self-care (01) ==
LOC: POLAB3 12:56
PROVIDERS: PCP Family Medicine Geriatric Medicine; Visit Provider Family Medicine Geriatric Medicine
DX: D64.9 Anemia, unspecified (principal); E72.11 Homocystinuria
CPT/HCPCS: 36415; 83090; 83921; 85025

== ENCOUNTER → 2022-05-12 | Outpatient (CLI) | payer MEDICARE, OTHER, SELFPAY ==
[2022-05-12 16:19] LABS: Absolute Lymphocyte Count 1.44 X10^3/uL (0.83-4.51); Absolute Neutrophil Count 5.5 X10^3/uL (2.0-7.7); Basophil# 0.04 X10^3/uL; Basophil% 0.5 % (0-1); Eosinophil# 0.18 X10^3/uL; Eosinophils% 2.2 % (0-5); Hematocrit 34.2 % (37-47); Hemoglobin 10.6 g/dL (12.0-15.0); Lymphocyte # 1.44 X10^3/ul (0.83-4.51); Mean Corpuscular Hgb 26.6 pg (27.0-32.0); Mean Corpuscular Volume 85.7 fL (81-99); Mean Platelet Vol. 10.2 fl (6.2-12.0); Monocyte# 0.83 X10^3/uL; Monocyte% 10.4 % (0-10); NRBC Flagged by Analyzer 0 % (0-5); Neutrophil # 5.49 X10^3/uL (2.7-7.7); Neutrophil % 68.5 % (47-70); Platelet Count 488 K/mm3 (150-450); RBC Distribution Width CV 15.9 % (11.6-14.6); RBC Distribution Width SD 49.8 fl (35.1-43.9); Red Blood Count 3.99 M/mm3 (4.2-5.4)
[2022-05-12 16:29] LABS: Vitamin D,25 Hydroxy 30.4 ng/mL
[2022-05-12 16:39] LABS: ALB/GLOB Ratio 0.7 RATIO (0.9-2.4); AST(SGOT) 14 U/L (15-37); Alanine Aminotransfer ALT/SGPT 22 U/L (13-56); Albumin, Serum 3.2 g/dL (3.2-5.0); Alkaline Phosphatase 105 U/L (45-117); Anion Gap 7 (5-15); BUN 20 mg/dL (7-18); BUN/Creat Ratio 20.4 RATIO (10-20); Calcium,Total 9.4 mg/dL (8.5-10.1); Chloride 101 mmol/L (98-107); Creatinine, Serum 0.98 mg/dL (0.55-1.02); EST Glomerular Filtration Rate 57 mL/min (>60); Est Glom Filt Rate - Afr Amer 69 mL/min (>60); Globulin 4.5 g/dL (2.2-4.2); Glucose 120 mg/dL (74-106); Potassium 3.8 mmol/L (3.5-5.1); Protein, Total 7.7 g/dL (6.4-8.2); Sodium Level 133 mmol/L (136-145); Thyroid Stim Hormone (TSH) 0.77 uIU/mL (0.358-3.74)
== END | disposition home or self-care (01) ==
LOC: POLAB3 13:09
PROVIDERS: PCP Family Medicine Geriatric Medicine; Visit Provider Family Medicine Geriatric Medicine
DX: I10 Essential (primary) hypertension (principal); E55.9 Vitamin D deficiency, unspecified
CPT/HCPCS: 36415; 80053; 82306; 84443; 85025

== ENCOUNTER → 2022-09-07 | Outpatient (CLI) | payer MEDICARE, OTHER, SELFPAY ==
[2022-09-07 17:27] LABS: Absolute Lymphocyte Count 1.66 X10^3/uL (0.83-4.51); Absolute Neutrophil Count 6.1 X10^3/uL (2.0-7.7); Basophil# 0.03 X10^3/uL; Basophil% 0.3 % (0-1); Eosinophil# 0.18 X10^3/uL; Hematocrit 34.3 % (37-47); Hemoglobin 10.5 g/dL (12.0-15.0); Lymphocyte # 1.66 X10^3/ul (0.83-4.51); Lymphocyte % 18.8 % (19-41); Mean Corp Hgb Conc 30.6 g/dL (32-36); Mean Corpuscular Hgb 26.4 pg (27.0-32.0); Mean Corpuscular Volume 86.2 fL (81-99); Mean Platelet Vol. 10.4 fl (6.2-12.0); Monocyte# 0.72 X10^3/uL; Monocyte% 8.1 % (0-10); NRBC Flagged by Analyzer 0 % (0-5); Neutrophil # 6.05 X10^3/uL (2.7-7.7); Neutrophil % 68.5 % (47-70); Platelet Count 588 K/mm3 (150-450); RBC Distribution Width CV 15.7 % (11.6-14.6); RBC Distribution Width SD 49.9 fl (35.1-43.9); Red Blood Count 3.98 M/mm3 (4.2-5.4); White Blood Count 8.8 K/mm3 (4.4-11.0)
[2022-09-07 18:11] LABS: Vitamin D,25 Hydroxy 28.8 ng/mL
[2022-09-07 18:19] LABS: ALB/GLOB Ratio 0.6 RATIO (0.9-2.4); AST(SGOT) 24 U/L (15-37); Alanine Aminotransfer ALT/SGPT 21 U/L (13-56); Albumin, Serum 3.1 g/dL (3.2-5.0); Alkaline Phosphatase 113 U/L (45-117); Anion Gap 9 (5-15); BUN 20 mg/dL (7-18); BUN/Creat Ratio 20.1 RATIO (10-20); Calcium,Total 9.7 mg/dL (8.5-10.1); Chloride 100 mmol/L (98-107); EST Glomerular Filtration Rate 56 mL/min (>60); Est Glom Filt Rate - Afr Amer 68 mL/min (>60); Globulin 4.8 g/dL (2.2-4.2); Glucose 98 mg/dL (74-106); Protein, Total 7.9 g/dL (6.4-8.2); Sodium Level 134 mmol/L (136-145); Thyroid Stim Hormone (TSH) 0.98 uIU/mL (0.358-3.74)
== END | disposition home or self-care (01) ==
LOC: POLAB3 13:40
PROVIDERS: PCP Family Medicine Geriatric Medicine; Visit Provider Family Medicine Geriatric Medicine
DX: E55.9 Vitamin D deficiency, unspecified (principal); I10 Essential (primary) hypertension
CPT/HCPCS: 36415; 80053; 82306; 84443; 85025

== ENCOUNTER → 2022-11-28 | Outpatient (CLI) | payer MEDICARE, OTHER, SELFPAY ==
[2022-11-28 16:46] LABS: Absolute Lymphocyte Count 1.57 X10^3/uL (0.83-4.51); Absolute Neutrophil Count 3.7 X10^3/uL (2.0-7.7); Basophil# 0.03 X10^3/uL; Basophil% 0.5 % (0-1); Eosinophil# 0.13 X10^3/uL; Eosinophils% 2.1 % (0-5); Hematocrit 34.5 % (37-47); Hemoglobin 10.7 g/dL (12.0-15.0); Lymphocyte # 1.57 X10^3/ul (0.83-4.51); Lymphocyte % 25.6 % (19-41); Mean Corpuscular Hgb 26.4 pg (27.0-32.0); Mean Corpuscular Volume 85.2 fL (81-99); Monocyte# 0.68 X10^3/uL; Monocyte% 11.1 % (0-10); NRBC Flagged by Analyzer 0 % (0-5); Neutrophil # 3.71 X10^3/uL (2.7-7.7); Neutrophil % 60.4 % (47-70); Platelet Count 362 K/mm3 (150-450); RBC Distribution Width CV 14.9 % (11.6-14.6); RBC Distribution Width SD 46.1 fl (35.1-43.9); Red Blood Count 4.05 M/mm3 (4.2-5.4); White Blood Count 6.1 K/mm3 (4.4-11.0)
[2022-11-28 17:24] LABS: Anion Gap 8 (5-15); BUN 28 mg/dL (7-18); BUN/Creat Ratio 20.4 RATIO (10-20); Calcium,Total 9.3 mg/dL (8.5-10.1); Chloride 104 mmol/L (98-107); Creatinine, Serum 1.37 mg/dL (0.55-1.02); EST Glomerular Filtration Rate 39 mL/min (>60); Est Glom Filt Rate - Afr Amer 47 mL/min (>60); Glucose 91 mg/dL (74-106); Potassium 4.4 mmol/L (3.5-5.1); Sodium Level 137 mmol/L (136-145)
[2022-11-28 17:28] LABS: BNP,B-Type NATRIURETIC PEPTIDE 83.3 pg/mL (0-100)
== END | disposition home or self-care (01) ==
LOC: LAB 14:17
PROVIDERS: PCP Family Medicine Geriatric Medicine; Referring Provider Nurse Practitioner Gerontology; Visit Provider Nurse Practitioner Gerontology
DX: R06.00 Dyspnea, unspecified (principal)
CPT/HCPCS: 36415; 80048; 83880; 85025

== ENCOUNTER → 2022-12-05 | Outpatient (CLI) | payer MEDICARE, OTHER, SELFPAY ==
--- NOTE | 2022-12-05 14:43 | ECHOD_ITS ---
Reason For Study: [place] Procedure This was a 2D Doppler, Color Flow transthoracic echocardiogram. Exam performed in department. Left Ventricle Normal LV size. The estimated ejection fraction is 55 %. Mild to moderate segmental systolic dysfunction (see wall motion). Stage 1 diastolic dysfunction. Posterior-Basal: Severely hypokinetic. Infero-Basal: Aneurysmal. Basal inferoseptal: Dyskinetic. The rest of the wall segments are normal. Right Ventricle Normal RV size. Normal systolic function. Atria Normal left atrium. Normal right atrium. Mitral Valve Bileaflet diffuse mitral valve thickening. Mild (1+) eccentric mitral valve insufficiency. Tricuspid Valve Normal tricuspid valve. Mild (1+) tricuspid valve insufficiency. Pulmonary artery systolic pressure is 33 mmHg. Aortic Valve Trisinus/trileaflet aortic valve. Mild focal aortic valve calcification. Mild (1+) aortic valve insufficiency. Pulmonic Valve Normal pulmonic valve. Great Vessels Normal aortic root. The pulmonary artery is normal size. Normal inferior vena cava. Pericardium/Pleural No pericardial effusion. MMode/2D Measurements & Calculations LVIDd: 3.7 cm IVSd: 1.2 cm Ao root diam: 3.4 cm LVIDs: 2.9 cm LVPWd: 1.0 cm RVDd: 3.1 cm FS: 20.7 % LAV(MOD-bp): 53.7 ml LVAd ap4: 23.7 cm2 SV(MOD-sp4): 35.5 ml LAV(MOD-bp) Indexed: 30.0 ml/m2 LVLd ap4: 7.2 cm LAV(MOD-sp2): 53.8 ml EDV(MOD-sp4): 62.3 ml LAV(MOD-sp4): 47.6 ml EDV(sp4-el): 65.8 ml LVAs ap4: 13.6 cm2 LVLs ap4: 6.0 cm ESV(MOD-sp4): 26.8 ml ESV(sp4-el): 26.2 ml EF(MOD-sp4): 57.0 % EF(sp4-el): 60.3 % SV(sp4-el): 39.7 ml LA A4 area: 17.7 cm2 LA dimension(2D): 4.1 cm RA A4 area: 8.7 cm2 Time Measurements MV dec time: 0.26 sec Doppler Measurements & Calculations MV E max daniel: 99.9 cm/sec Lat Peak E' Daniel: 9.2 cm/sec Med Peak E' Daniel: 4.3 cm/sec MV A max daniel: 135.4 cm/sec E/E' lat: 10.9 E/E' med: 23.2 MV E/A: 0.74 MV V2 max: 156.2 cm/sec Ao V2 max: 159.9 cm/sec MV max P.8 mmHg MV dec slope: 381.5 cm/sec2 Ao max P.2 mmHg MV V2 mean: 92.2 cm/sec Ao V2 mean: 120.0 cm/sec MV mean P.8 mmHg Ao mean P.2 mmHg MV V2 VTI: 37.1 cm Ao V2 VTI: 34.7 cm AI max daniel: 358.0 cm/sec LV V1 max: 122.6 cm/sec PA V2 max: 95.7 cm/sec AI max P.3 mmHg LV V1 max P.0 mmHg AI dec slope: 182.2 cm/sec2 AI P1/2t: 575.5 msec PI end-d daniel: 76.5 cm/sec TR max daniel: 256.2 cm/sec TR max P.4 mmHg ECHO/Echo Complete Interpretation Summary Normal LV size. The estimated ejection fraction is 55 %. Mild to moderate segmental systolic dysfunction (see wall motion). Stage 1 diastolic dysfunction. Mild (1+) eccentric mitral valve insufficiency. Mild (1+) aortic valve insufficiency. Ordering Physician: Deloris Boothe Referring Physician: David Mace Chi Performed By: Rossi Soto RDCS, RVT
== END | disposition home or self-care (01) ==
LOC: CVS 14:41
PROVIDERS: PCP Family Medicine Geriatric Medicine; Visit Provider Nurse Practitioner Gerontology
DX: R06.09 Other forms of dyspnea (principal)
CPT/HCPCS: 93306

== ENCOUNTER → 2022-12-06 | Outpatient (CLI) | payer MEDICARE, OTHER, SELFPAY ==
[2022-12-06 17:41] LABS: Absolute Lymphocyte Count 1.68 X10^3/uL (0.83-4.51); Absolute Neutrophil Count 3.3 X10^3/uL (2.0-7.7); Basophil# 0.02 X10^3/uL; Basophil% 0.3 % (0-1); Eosinophil# 0.16 X10^3/uL; Eosinophils% 2.7 % (0-5); Hematocrit 33.3 % (37-47); Hemoglobin 10.1 g/dL (12.0-15.0); Lymphocyte # 1.68 X10^3/ul (0.83-4.51); Lymphocyte % 28.8 % (19-41); Mean Corp Hgb Conc 30.3 g/dL (32-36); Mean Corpuscular Hgb 25.8 pg (27.0-32.0); Mean Corpuscular Volume 85.2 fL (81-99); Monocyte% 10.3 % (0-10); NRBC Flagged by Analyzer 0 % (0-5); Neutrophil # 3.33 X10^3/uL (2.7-7.7); Neutrophil % 57.2 % (47-70); Platelet Count 372 K/mm3 (150-450); RBC Distribution Width CV 15.5 % (11.6-14.6); RBC Distribution Width SD 46.9 fl (35.1-43.9); Red Blood Count 3.91 M/mm3 (4.2-5.4); White Blood Count 5.8 K/mm3 (4.4-11.0)
[2022-12-06 18:29] LABS: AST(SGOT) 24 U/L (15-37); Alanine Aminotransfer ALT/SGPT 28 U/L (13-56); Albumin, Serum 3.6 g/dL (3.2-5.0); Alkaline Phosphatase 86 U/L (45-117); Anion Gap 8 (5-15); BUN 27 mg/dL (7-18); BUN/Creat Ratio 25.5 RATIO (10-20); Calcium,Total 9.3 mg/dL (8.5-10.1); Chloride 104 mmol/L (98-107); Creatinine, Serum 1.06 mg/dL (0.55-1.02); EST Glomerular Filtration Rate 52 mL/min (>60); Est Glom Filt Rate - Afr Amer 63 mL/min (>60); Globulin 3.6 g/dL (2.2-4.2); Glucose 100 mg/dL (74-106); Potassium 3.8 mmol/L (3.5-5.1); Protein, Total 7.2 g/dL (6.4-8.2); Sodium Level 137 mmol/L (136-145); Thyroid Stim Hormone (TSH) 1.27 uIU/mL (0.358-3.74)
== END | disposition home or self-care (01) ==
LOC: POLAB3 14:19
PROVIDERS: PCP Family Medicine Geriatric Medicine; Visit Provider Family Medicine Geriatric Medicine
DX: E55.9 Vitamin D deficiency, unspecified (principal); I10 Essential (primary) hypertension
CPT/HCPCS: 36415; 80053; 82306; 84443; 85025

== ENCOUNTER → 2023-02-28 | Outpatient (CLI) | payer MEDICARE, OTHER, SELFPAY ==
[2023-02-28 17:47] LABS: Absolute Lymphocyte Count 1.94 X10^3/uL (0.83-4.51); Absolute Neutrophil Count 3.6 X10^3/uL (2.0-7.7); Basophil# 0.03 X10^3/uL; Basophil% 0.5 % (0-1); Hematocrit 37.1 % (37-47); Lymphocyte # 1.94 X10^3/ul (0.83-4.51); Lymphocyte % 29.6 % (19-41); Mean Corp Hgb Conc 29.6 g/dL (32-36); Mean Corpuscular Hgb 26.7 pg (27.0-32.0); Mean Platelet Vol. 11.9 fl (6.2-12.0); Monocyte% 12.2 % (0-10); NRBC Flagged by Analyzer 0 % (0-5); Neutrophil # 3.57 X10^3/uL (2.7-7.7); Neutrophil % 54.4 % (47-70); Platelet Count 319 K/mm3 (150-450); RBC Distribution Width CV 15.9 % (11.6-14.6); RBC Distribution Width SD 53.1 fl (35.1-43.9); Red Blood Count 4.12 M/mm3 (4.2-5.4); White Blood Count 6.6 K/mm3 (4.4-11.0)
[2023-02-28 18:57] LABS: Vitamin D,25 Hydroxy 30.6 ng/mL
[2023-02-28 19:16] LABS: ALB/GLOB Ratio 0.9 RATIO (0.9-2.4); AST(SGOT) 21 U/L (15-37); Alanine Aminotransfer ALT/SGPT 24 U/L (13-56); Albumin, Serum 3.5 g/dL (3.2-5.0); Alkaline Phosphatase 86 U/L (45-117); Anion Gap 8 (5-15); BUN 23 mg/dL (7-18); BUN/Creat Ratio 25.4 RATIO (10-20); Calcium,Total 9.1 mg/dL (8.5-10.1); Chloride 104 mmol/L (98-107); EST Glomerular Filtration Rate 63 mL/min (>60); Est Glom Filt Rate - Afr Amer 76 mL/min (>60); Globulin 3.7 g/dL (2.2-4.2); Glucose 86 mg/dL (74-106); Potassium 3.9 mmol/L (3.5-5.1); Protein, Total 7.2 g/dL (6.4-8.2); Sodium Level 135 mmol/L (136-145); Thyroid Stim Hormone (TSH) 1.24 uIU/mL (0.358-3.74)
== END | disposition home or self-care (01) ==
LOC: POLAB3 13:41
PROVIDERS: PCP Family Medicine Geriatric Medicine; Visit Provider Family Medicine Geriatric Medicine
DX: I10 Essential (primary) hypertension (principal); E55.9 Vitamin D deficiency, unspecified
CPT/HCPCS: 36415; 80053; 82306; 84443; 85025

== ENCOUNTER → 2023-03-02 | Outpatient (CLI) | payer MEDICARE, OTHER, SELFPAY ==
[2023-03-02 15:18] LABS: Absolute Neutrophil Count 3.3 X10^3/uL (2.0-7.7); Basophil# 0.03 X10^3/uL; Basophil% 0.5 % (0-1); Eosinophil# 0.18 X10^3/uL; Eosinophils% 3.1 % (0-5); Hematocrit 35.4 % (37-47); Hemoglobin 10.9 g/dL (12.0-15.0); Lymphocyte % 27.9 % (19-41); Mean Corp Hgb Conc 30.8 g/dL (32-36); Mean Corpuscular Hgb 26.5 pg (27.0-32.0); Mean Corpuscular Volume 85.9 fL (81-99); Mean Platelet Vol. 10.8 fl (6.2-12.0); Monocyte% 10.5 % (0-10); NRBC Flagged by Analyzer 0 % (0-5); Neutrophil # 3.31 X10^3/uL (2.7-7.7); Neutrophil % 57.7 % (47-70); Platelet Count 305 K/mm3 (150-450); RBC Distribution Width CV 15.8 % (11.6-14.6); RBC Distribution Width SD 49.7 fl (35.1-43.9); Red Blood Count 4.12 M/mm3 (4.2-5.4); White Blood Count 5.7 K/mm3 (4.4-11.0)
[2023-03-02 15:35] LABS: Ferritin 16 ng/mL (8-252); Iron 42 ug/dL (50-170); Iron Binding Capacity,Total 346 ug/dL (250-450); PERCENT IRON SATURATION 12.1 % (15.0-55.0)
== END | disposition home or self-care (01) ==
LOC: LAB 14:46
PROVIDERS: PCP Family Medicine Geriatric Medicine; Referring Provider Nurse Practitioner Adult Health; Visit Provider Nurse Practitioner Adult Health
DX: D50.9 Iron deficiency anemia, unspecified (principal)
CPT/HCPCS: 36415; 82728; 83540; 83550; 85025

== ENCOUNTER → 2023-03-03 | Outpatient (CLI) | payer MEDICARE, OTHER, SELFPAY ==
--- NOTE | 2023-03-03 10:44 | ART_ITS ---
Reason For Study: Decreased Pedal Pulses Procedure A bilateral lower extremity continuous wave Doppler with analog waveform analysis,segmental pressures,and ankle brachial indexes without exercise. Left Segmental Pressures Left brachial= 108mmHg. Left posterior tibial artery = 117mmHg. Left dorsalis pedis artery = 117mmHg. Right Segmental Pressures Right brachial= 105mmHg. Right posterior tibial artery = 120mmHg. Right dorsalis pedis artery = 122mmHg. Indices The right ankle brachial index by the posterior tibial artery is 1.11. The right ankle brachial index by the dorsalis pedis is 1.13. The left ankle brachial index by the posterior tibial artery is 1.08. The left ankle brachial index by the dorsalis pedis is 1.08. VL/Lower Ext Art Exam w/o Exercis Interpretation Summary Right MERRICK 1.13, normal. Doppler/PVR waveforms of the right leg normal at rest. Left MERRICK 1.08, normal. Doppler/PVR waveforms of the left leg normal at rest. Ordering Physician: Maddison Sprague Referring Physician: David Mace Chi Performed By: Rossi Soto RDCS/RVT
== END | disposition home or self-care (01) ==
LOC: CVS 10:44
PROVIDERS: PCP Family Medicine Geriatric Medicine; Referring Provider Physician Assistant Medical; Visit Provider Physician Assistant Medical
DX: I73.9 Peripheral vascular disease, unspecified (principal)
CPT/HCPCS: 93923

== ENCOUNTER → 2023-05-15 | Outpatient (CLI) | payer MEDICARE, OTHER, SELFPAY ==
[2023-05-15 15:33] LABS: Absolute Lymphocyte Count 1.49 X10^3/uL (0.83-4.51); Absolute Neutrophil Count 4.8 X10^3/uL (2.0-7.7); Basophil# 0.03 X10^3/uL; Basophil% 0.4 % (0-1); Eosinophil# 0.16 X10^3/uL; Eosinophils% 2.2 % (0-5); Hematocrit 37.4 % (37-47); Hemoglobin 11.9 g/dL (12.0-15.0); Lymphocyte # 1.49 X10^3/ul (0.83-4.51); Lymphocyte % 20.5 % (19-41); Mean Corp Hgb Conc 31.8 g/dL (32-36); Mean Corpuscular Hgb 27.8 pg (27.0-32.0); Mean Corpuscular Volume 87.4 fL (81-99); Mean Platelet Vol. 10.1 fl (6.2-12.0); Monocyte# 0.71 X10^3/uL; Monocyte% 9.8 % (0-10); NRBC Flagged by Analyzer 0 % (0-5); Neutrophil # 4.77 X10^3/uL (2.7-7.7); Neutrophil % 65.6 % (47-70); Platelet Count 350 K/mm3 (150-450); RBC Distribution Width CV 14.9 % (11.6-14.6); RBC Distribution Width SD 47.4 fl (35.1-43.9); Red Blood Count 4.28 M/mm3 (4.2-5.4); White Blood Count 7.3 K/mm3 (4.4-11.0)
[2023-05-15 16:02] LABS: Vitamin D,25 Hydroxy 58.8 ng/mL
[2023-05-15 16:04] LABS: ALB/GLOB Ratio 0.9 RATIO (0.9-2.4); AST(SGOT) 22 U/L (15-37); Alanine Aminotransfer ALT/SGPT 24 U/L (13-56); Albumin, Serum 3.6 g/dL (3.2-5.0); Alkaline Phosphatase 77 U/L (45-117); Anion Gap 7 (5-15); BUN 18 mg/dL (7-18); BUN/Creat Ratio 17.1 RATIO (10-20); Calcium,Total 9.5 mg/dL (8.5-10.1); Chloride 103 mmol/L (98-107); Creatinine, Serum 1.05 mg/dL (0.55-1.02); EST Glomerular Filtration Rate 53 mL/min (>60); Est Glom Filt Rate - Afr Amer 64 mL/min (>60); Ferritin 91 ng/mL (8-252); Glucose 101 mg/dL (74-106); Iron 35 ug/dL (50-170); Iron Binding Capacity,Total 280 ug/dL (250-450); PERCENT IRON SATURATION 12.5 % (15.0-55.0); Potassium 4.2 mmol/L (3.5-5.1); Protein, Total 7.6 g/dL (6.4-8.2); Sodium Level 135 mmol/L (136-145); Thyroid Stim Hormone (TSH) 0.67 uIU/mL (0.358-3.74)
== END | disposition home or self-care (01) ==
LOC: LAB 14:45
PROVIDERS: Nurse Practitioner Adult Health; PCP Family Medicine Geriatric Medicine; Referring Provider Family Medicine Geriatric Medicine; Visit Provider Family Medicine Geriatric Medicine
DX: I10 Essential (primary) hypertension (principal); D50.9 Iron deficiency anemia, unspecified; E55.9 Vitamin D deficiency, unspecified
CPT/HCPCS: 80053; 82306; 82728; 83540; 83550; 84443; 85025

== ENCOUNTER → 2023-11-23 | Outpatient (CLI) | payer MEDICARE, OTHER, SELFPAY ==
[2023-11-23 12:45] LABS: Absolute Lymphocyte Count 1.26 X10^3/uL (0.83-4.51); Absolute Neutrophil Count 4.6 X10^3/uL (2.0-7.7); Basophil# 0.03 X10^3/uL; Basophil% 0.4 % (0-1); Eosinophil# 0.09 X10^3/uL; Eosinophils% 1.3 % (0-5); Hematocrit 37.8 % (37-47); Hemoglobin 11.6 g/dL (12.0-15.0); Lymphocyte # 1.26 X10^3/ul (0.83-4.51); Lymphocyte % 17.6 % (19-41); Mean Corp Hgb Conc 30.7 g/dL (32-36); Mean Corpuscular Hgb 28.1 pg (27.0-32.0); Mean Corpuscular Volume 91.5 fL (81-99); Mean Platelet Vol. 11.1 fl (6.2-12.0); Monocyte# 1.16 X10^3/uL; Monocyte% 16.2 % (0-10); NRBC Flagged by Analyzer 0 % (0-5); Neutrophil # 4.56 X10^3/uL (2.7-7.7); Neutrophil % 63.9 % (47-70); Platelet Count 293 K/mm3 (150-450); RBC Distribution Width CV 14.6 % (11.6-14.6); RBC Distribution Width SD 49.1 fl (35.1-43.9); Red Blood Count 4.13 M/mm3 (4.2-5.4); White Blood Count 7.1 K/mm3 (4.4-11.0)
[2023-11-23 13:34] LABS: ALB/GLOB Ratio 0.9 RATIO (0.9-2.4); AST(SGOT) 22 U/L (15-37); Alanine Aminotransfer ALT/SGPT 23 U/L (13-56); Albumin, Serum 3.5 g/dL (3.2-5.0); Alkaline Phosphatase 82 U/L (45-117); Anion Gap 6 (5-15); BUN 17 mg/dL (7-18); BUN/Creat Ratio 19.4 RATIO (10-20); Chloride 102 mmol/L (98-107); Creatinine, Serum 0.88 mg/dL (0.55-1.02); EST Glomerular Filtration Rate 65 mL/min (>60); Est Glom Filt Rate - Afr Amer 78 mL/min (>60); Globulin 3.8 g/dL (2.2-4.2); Glucose 94 mg/dL (74-106); Potassium 3.8 mmol/L (3.5-5.1); Protein, Total 7.3 g/dL (6.4-8.2); Sodium Level 135 mmol/L (136-145); Thyroid Stim Hormone (TSH) 0.97 uIU/mL (0.358-3.74)
== END | disposition home or self-care (01) ==
LOC: POLAB3 11:59
PROVIDERS: PCP Family Medicine Geriatric Medicine; Visit Provider Family Medicine Geriatric Medicine
DX: I10 Essential (primary) hypertension (principal); E55.9 Vitamin D deficiency, unspecified
CPT/HCPCS: 36415; 80053; 82306; 84443; 85025

== ENCOUNTER → 2023-11-27 | Outpatient (CLI) | payer MEDICARE, OTHER, SELFPAY | END | disposition home or self-care (01) | PROVIDERS: PCP Family Medicine Geriatric Medicine; Referring Provider Family Medicine Geriatric Medicine; Visit Provider Family Medicine Geriatric Medicine | DX: R68.83 Chills (without fever) (principal); J11.1 Influenza due to unidentified influenza virus with other respiratory manifestations | CPT/HCPCS: 87631 ==

== ENCOUNTER → 2024-05-29 | Outpatient (CLI) | payer MEDICARE, OTHER, SELFPAY ==
[2024-05-29 14:25] LABS: Absolute Lymphocyte Count 1.51 X10^3/uL (0.83-4.51); Absolute Neutrophil Count 5.2 X10^3/uL (2.0-7.7); Basophil# 0.04 X10^3/uL; Basophil% 0.5 % (0-1); Eosinophil# 0.14 X10^3/uL; Eosinophils% 1.8 % (0-5); Hematocrit 36.6 % (37-47); Hemoglobin 11.8 g/dL (12.0-15.0); Lymphocyte # 1.51 X10^3/ul (0.83-4.51); Lymphocyte % 19.6 % (19-41); Mean Corp Hgb Conc 32.2 g/dL (32-36); Mean Corpuscular Hgb 28.2 pg (27.0-32.0); Mean Corpuscular Volume 87.4 fL (81-99); Mean Platelet Vol. 10.6 fl (6.2-12.0); Monocyte# 0.81 X10^3/uL; Monocyte% 10.5 % (0-10); NRBC Flagged by Analyzer 0 % (0-5); Neutrophil # 5.16 X10^3/uL (2.7-7.7); Neutrophil % 67.2 % (47-70); Platelet Count 298 K/mm3 (150-450); RBC Distribution Width CV 14.9 % (11.6-14.6); Red Blood Count 4.19 M/mm3 (4.2-5.4); White Blood Count 7.7 K/mm3 (4.4-11.0)
[2024-05-29 14:55] LABS: Vitamin D,25 Hydroxy 50.9 ng/mL
[2024-05-29 15:00] LABS: ALB/GLOB Ratio 1.1 RATIO (0.9-2.4); AST(SGOT) 16 U/L (15-37); Alanine Aminotransfer ALT/SGPT 20 U/L (13-56); Albumin, Serum 3.7 g/dL (3.2-5.0); Alkaline Phosphatase 96 U/L (45-117); Anion Gap 5 (5-15); BUN 22 mg/dL (7-18); BUN/Creat Ratio 23.2 RATIO (10-20); Calcium,Total 9.4 mg/dL (8.5-10.1); Chloride 105 mmol/L (98-107); Creatinine, Serum 0.95 mg/dL (0.55-1.02); EST Glomerular Filtration Rate 59 mL/min (>60); Est Glom Filt Rate - Afr Amer 72 mL/min (>60); Globulin 3.5 g/dL (2.2-4.2); Glucose 93 mg/dL (74-106); Potassium 4.1 mmol/L (3.5-5.1); Protein, Total 7.2 g/dL (6.4-8.2); Sodium Level 138 mmol/L (136-145)
== END | disposition home or self-care (01) ==
PROVIDERS: PCP Family Medicine Geriatric Medicine; Referring Provider Family Medicine Geriatric Medicine; Visit Provider Family Medicine Geriatric Medicine
DX: I10 Essential (primary) hypertension (principal); E55.9 Vitamin D deficiency, unspecified
CPT/HCPCS: 36415; 80053; 82306; 84443; 85025

== ENCOUNTER → 2024-11-26 | Outpatient (CLI) | payer MEDICARE, OTHER, SELFPAY ==
[2024-11-26 13:58] LABS: Absolute Neutrophil Count 7.5 X10^3/uL (2.0-7.7); Basophil# 0.04 X10^3/uL; Basophil% 0.4 % (0-1); Eosinophil# 0.22 X10^3/uL; Hematocrit 38.6 % (37-47); Hemoglobin 11.8 g/dL (12.0-15.0); Lymphocyte % 20.7 % (19-41); Mean Corp Hgb Conc 30.6 g/dL (32-36); Mean Corpuscular Hgb 27.3 pg (27.0-32.0); Mean Corpuscular Volume 89.4 fL (81-99); Mean Platelet Vol. 10.5 fl (6.2-12.0); Monocyte# 0.93 X10^3/uL; Monocyte% 8.4 % (0-10); NRBC Flagged by Analyzer 0 % (0-5); Neutrophil # 7.53 X10^3/uL (2.7-7.7); Neutrophil % 67.7 % (47-70); Platelet Count 410 K/mm3 (150-450); RBC Distribution Width CV 14.8 % (11.6-14.6); RBC Distribution Width SD 47.8 fl (35.1-43.9); Red Blood Count 4.32 M/mm3 (4.2-5.4); White Blood Count 11.1 K/mm3 (4.4-11.0)
[2024-11-26 14:27] LABS: Vitamin D,25 Hydroxy 54.9 ng/mL
[2024-11-26 14:33] LABS: ALB/GLOB Ratio 0.9 RATIO (0.9-2.4); AST(SGOT) 15 U/L (15-37); Alanine Aminotransfer ALT/SGPT 25 U/L (13-56); Albumin, Serum 3.7 g/dL (3.2-5.0); Alkaline Phosphatase 110 U/L (45-117); Anion Gap 8 (5-15); BUN 20 mg/dL (7-18); BUN/Creat Ratio 21.8 RATIO (10-20); Calcium,Total 9.5 mg/dL (8.5-10.1); Chloride 104 mmol/L (98-107); Creatinine, Serum 0.92 mg/dL (0.55-1.02); EST Glomerular Filtration Rate 61 mL/min (>60); Est Glom Filt Rate - Afr Amer 74 mL/min (>60); Globulin 4.1 g/dL (2.2-4.2); Glucose 99 mg/dL (74-106); Potassium 3.8 mmol/L (3.5-5.1); Protein, Total 7.8 g/dL (6.4-8.2); Sodium Level 138 mmol/L (136-145)
== END | disposition home or self-care (01) ==
LOC: POLAB3 13:42
PROVIDERS: PCP Family Medicine Geriatric Medicine; Visit Provider Family Medicine Geriatric Medicine
DX: I10 Essential (primary) hypertension (principal); E55.9 Vitamin D deficiency, unspecified
CPT/HCPCS: 36415; 80053; 82306; 84443; 85025

== ENCOUNTER → 2025-05-30 | Outpatient (CLI) | payer MEDICARE, OTHER, SELFPAY ==
[2025-05-30 12:08] LABS: Hematocrit 39.6 % (37-47); Hemoglobin 12.5 g/dL (12.0-15.0); Immature Granulocytes Count 0.020 X10^3/uL (0.0-0.0); Mean Corp Hgb Conc 31.6 g/dL (32-36); Mean Corpuscular Volume 88.8 fL (81-99); Mean Platelet Vol. 10.6 fl (6.2-12.0); NRBC Flagged by Analyzer 0 % (0-5); Platelet Count 318 K/mm3 (150-450); RBC Distribution Width CV 14.9 % (11.6-14.6); RBC Distribution Width SD 48.4 fl (35.1-43.9); Red Blood Count 4.46 M/mm3 (4.2-5.4); White Blood Count 7.0 K/mm3 (4.4-11.0)
[2025-05-30 14:11] LABS: AST(SGOT) 22 U/L (<=31); Alanine Aminotransfer ALT/SGPT 20 U/L (<=34); Albumin, Serum 4.3 g/dL (3.4-4.8); Alkaline Phosphatase 110 U/L (35-104); Anion Gap 12 (5-15); BUN 24 mg/dL (4-19); BUN/Creat Ratio 27.2 RATIO (10-20); Calcium,Total 9.6 mg/dL (7.6-11.0); Carbon Dioxide 23.6 mmol/L (21.0-32.0); Chloride 103 mmol/L (98-108); Globulin 3.0 g/dL (2.2-4.2); Glucose 101 mg/dL (70-99); Potassium 4.2 mmol/L (3.3-5.1); Vitamin D,25 Hydroxy 44.6 ng/mL (30-100)
== END | disposition home or self-care (01) ==
LOC: POLAB3 11:52
PROVIDERS: PCP Family Medicine Geriatric Medicine; Visit Provider Family Medicine Geriatric Medicine
DX: I10 Essential (primary) hypertension (principal); E55.9 Vitamin D deficiency, unspecified
CPT/HCPCS: 36415; 80053; 82306; 84443; 85025

== ENCOUNTER 2025-07-01 13:24 | Inpatient (IN) | payer MEDICARE, OTHER, SELFPAY ==
[2025-07-01] VITALS (15 sets, daily range): BP systolic 122–168; BP diastolic 50–146; PULSE 65–86; RESP 14–23; TEMP 36.5–36.6; O2SAT 95–100; BMI 27.6; BMI 27.5
--- NOTE | 2025-07-01 13:48 | EKG12_ITS ---
Test Reason : Blood Pressure : */* mmHG Vent. Rate : 74 BPM Atrial Rate : 74 BPM P-R Int : 182 ms QRS Dur : 128 ms QT Int : 446 ms P-R-T Axes : 66 -23 29 degrees QTcB Int : 495 ms Normal sinus rhythm Left ventricular hypertrophy with QRS widening ( R in aVL , [place] product ) Inferior infarct , age undetermined Abnormal ECG Confirmed by Elver Dickerson ([id number]), field map editor FRENCH DOSS ([id number]) on 07/02/2025 9:36:41 AM Referred By: Confirmed By: Elver Dickerson
--- NOTE | 2025-07-01 13:50 | EX.ED.DYSGE1 ---
HPI History of Present Illness Chief Complaint: Syncope Informant: patient, family and EMS Narrative Narrative: 89-year-old female started having near syncopal episodes last night, random lightheadedness, and then several times today, she thinks she actually lost consciousness at 1 point while she was laying on the couch. She did go to the bathroom and have a bowel movement but states this started before that. Upon EMS arrival, after they gave her aspirin and nitroglycerin for unclear reasons, they said her blood pressure was high but the patient had no chest discomfort or dyspnea today or last night, she had another syncopal episode just prior to me evaluating the patient, with staff stating that she had a long pause/asystole episode in which patient lost consciousness but then recovered prior to my coming into the room. Patient states she feels okay just a little weak all over. She has a history of CAD and follows with cardiology for that, treated medically she does not have any stents. Her medications include metoprolol succinate 25 mg, no other AV kenyon blockers. She states she takes that medication at night so her last dose was yesterday. [facility] Medical History Depression Iron deficiency anemia B12 deficiency Atherosclerotic heart disease of [place] coronary artery without angina pectoris Essential (primary) hypertension Abnormal electrocardiogram Vitamin D deficiency GERD (gastroesophageal reflux disease) Anxiety Anemia Home Medications ?Medication ?Instructions ?Recorded ?Last Taken ?Type dexlansoprazole 60 mg 60 mg PO QDAY 05/01/18 09/03/18 History capsule,biphase delayed release (Dexilant) aspirin 81 mg tablet,delayed 81 mg PO QDAY 05/02/18 02/07/22 History release (Adult Aspirin Regimen) losartan 100 mg tablet 100 mg PO DAILY 01/25/22 02/07/22 History acetaminophen 650 mg 650 mg PO Q12H PRN fever or pain 06/06/23 Unknown History tablet,extended release (Tylenol Arthritis Pain) ascorbic acid (vitamin C) 500 mg 500 mg PO DAILY 06/06/23 Unknown History tablet polysaccharide iron complex 150 mg 150 mg PO BID 06/06/23 Unknown History iron capsule (Ferrex) mecobalamin (vitamin B12) 1,000 1,000 mcg PO DAILY 03/04/24 Unknown History mcg lozenges metoprolol succinate 25 mg 25 mg PO DAILY #90 tabs 03/05/24 Unknown Rx tablet,extended release 24 hr isosorbide mononitrate 30 mg 30 mg PO DAILY #90 tabs 11/25/24 Unknown Rx tablet,extended release 24 hr cholecalciferol (vitamin D3) 25 5,000 unit PO DAILY 11/26/24 Unknown History mcg (1,000 unit) capsule venlafaxine 75 mg capsule,extended 150 mg PO QDAY 11/26/24 Unknown History release 24 hr (Effexor XR) atorvastatin 40 mg tablet 40 mg PO DAILY #90 tabs 03/10/25 Unknown Rx Allergy/AdvReac Type Severity Reaction Status Date / Time No Known Allergies Allergy Verified 07/01/25 13:25 Family History Brother Heart disease Myocardial infarction from [place] age 64 Surgical History History of appendectomy History of left heart catheterization (02/07/22) History of cataract surgery Hx of cataract surgery H/O left breast biopsy History of hysterectomy Social History Smoking Status: Never smoker alcohol intake: current alcohol intake frequency: holidays/special occasions only substance use type: does not use caffeine: Yes Type: coffee Number of servings: 2 ROS ROS ED Constitutional Constitutional ED: Denies chills or fever(s) Eyes Eyes: Denies change in vision or diplopia ENT ENT ED: Denies rhinorrhea or sore throat Cardiovascular Cardiovascular: Reports lightheadedness and syncope; Denies chest pain, leg edema or palpitations Respiratory/Chest Respiratory/Chest: Denies cough or dyspnea Gastrointestinal Gastrointestinal: Denies abdominal pain, diarrhea, nausea or vomiting Genitourinary Genitourinary ED: Denies dysuria or hematuria Musculoskeletal Musculoskeletal: Denies back pain or neck pain Integumentary Denies abscess or rash Neurologic Neurologic: Denies headache(s), paresthesias or weakness Psychiatric Psychiatric: Denies anxiety or suicidal thoughts EXAM Physical Exam Const Vital Signs: 07/01/25 13:26 07/01/25 13:40 07/01/25 14:09 Temperature 98 F Temperature Source Oral Pulse Rate 71 76 69 Respiratory Rate 18 18 17 Blood Pressure 161/146 H 165/75 H 166/79 H Blood Pressure Mean 151 105 108 Pulse Ox 99 100 100 Oxygen Delivery Method Room Air Room Air Room Air 07/01/25 14:49 07/01/25 14:49 07/01/25 15:06 Temperature 97.9 F Temperature Source Pulse Rate 71 70 69 Respiratory Rate 20 H 18 18 Blood Pressure 140/81 H 140/81 H 145/77 H Blood Pressure Mean 100 100 99 Pulse Ox 97 95 98 Oxygen Delivery Method Room Air Room Air Positive well nourished and well developed General Appearance ED: well developed and NAD HEENT Reports moist mucous membranes normocephalic and atraumatic Eyes PERRL and EOMs intact bilaterally Neck full ROM and supple Resp normal respiratory effort and clear to auscultation bilaterally Cardio regular rate, regular rhythm and no murmurs Cardio Narrative: During exam, patient changes heart rate to about half, in the 30s, and pulses also cut in half at that time while patient is feeling lightheaded. This lasts for about 5-10 seconds but recurs. Peripheral Pulses: pulses 2+ throughout GI non-tender and non-distended Auscultation: normoactive bowel sounds Palpation: soft Back/Spine no CVA tenderness General Back: other FROM Extremity normal to inspection General Extremety ED: Negative for edema, pulses abnormal or tenderness General Extremity: Negative for edema or pulses abnormal Neuro oriented x3, CN's II-XII intact bilaterally and no sensory deficits noted Sensorium / Orientation: awake and alert Motor Exam: strength 5/5 throughout Skin no rashes or lesions noted and no wounds MDM MDM MDM Narrative Medical decision making narrative: During my exam the patient was having an episode of bradycardia so I laid her flat and she did well did not lose consciousness with this although she did feel little lightheaded. EKG was called stat, we started an IV and started some fluids, placed anterior posterior pacer pads and hooked her up to external pacing. The initial EKG is unremarkable with borderline LVH by voltage criteria, and we left her on the EKG machine until she had another episode we were able to capture what appears to be Mobitz 2 AVB. Consulted cardiology who saw the patient in the ER and is in agreement, they are going to let metoprolol washout and they are planning on suspected permanent pacemaker placement tomorrow AM. We tuned the transthoracic pacing so that it captured and programmed to on-demand pacing, she remained stable without was given some fentanyl and prophylactic Zofran. 1 view chest x-ray on my interpretation is unremarkable. Radiology in agreement. Labs noted, patient doing well with demand pacing, discussed with hospitalist for ICU admission. History & Record Review Additional record(s) reviewed:: Prior outpatient record (cardiology -- severe 2-vessel dz in circ, RCA from cath 01/2022) Lab Data Attestation: I reviewed the patient's lab results. Labs: Laboratory Results - last 24 hr 07/01/25 14:09 WBC 11.6 H RBC 4.17 L Hgb 11.8 L Hct 36.6 L MCV 87.8 MCH 28.3 MCHC 32.2 RDW Std Deviation 46.7 H RDW Coeff of Jaquan 14.6 Plt Count 296 MPV 11.5 Immature Gran % (Auto) 0.500 Neut % (Auto) 81.3 H Lymph % (Auto) 11.8 L Ward % (Auto) 5.9 Eos % (Auto) 0.3 Baso % (Auto) 0.2 Absolute Neuts (auto) 9.4 H Absolute Lymphs (auto) 1.37 Nucleated RBC % 0 Sodium 137 Potassium 4.0 Chloride 102 Carbon Dioxide 20.1 L Anion Gap 15 BUN 21 H Creatinine 0.74 Estim Creat Clear Calc 46.74 L Est GFR (MDRD) Non-Af 78 BUN/Creatinine Ratio 28.9 H Glucose 123 H Calcium 9.5 Troponin T High Sens 16 H Radiography Diagnostic Testing: Clinical Impression(s) from Imaging Studies Chest X-Ray 07/01/25 14:00 IMPRESSION: No acute abnormality. Mild cardiac enlargement. Reading Location: [id number] Rhythm Strip Rhythm Strip: Sinus Rhythm Rate: 75 Ectopy: None EKG Initial EKG: Attestation: I personally reviewed and interpreted this EKG as follows: Interpretation: Sinus Rhythm and No Acute Injury Pattern Follow-up EKG: Attestation: I personally reviewed and interpreted this EKG as follows: Interpretation: Sinus Rhythm, No Acute Injury Pattern and AV Block (Second-degree type II) Management Discussion w/another healthcare provider: Hospitalist and Government Affairs Fellow (Cardiology) Critical Care Time Critical Care Time: Yes Critical care time (excluding procedures): 30-74 minutes (36 min), Including time spent:, Discussing w/Patient &/or Family/Supervisor [place] Splitting, Discussing w/Consultants, Arranging Admission or Transfer and Performing Direct Patient Care at Bedside Discharge Plan Dx/Rx/DC Orders Clinical Impression: Atrioventricular block, Mobitz type 2, Syncope, History of CAD (coronary artery disease) Disposition Disposition: Acute Care [facility]
[2025-07-01] MEDS: 0.9% Normal Saline (1000mL) 1,000 ML 150 ML IV (13:53)
--- NOTE | 2025-07-01 14:00 | EKG12_ITS ---
Test Reason : Blood Pressure : */* mmHG Vent. Rate : 49 BPM Atrial Rate : 77 BPM P-R Int : * ms QRS Dur : 132 ms QT Int : 456 ms P-R-T Axes : 70 -25 -12 degrees QTcB Int : 411 ms Critical Test Result: AV Block Sinus rhythm with 2nd degree A-V block (Mobitz I) with 2:1 A-V conduction Left ventricular hypertrophy with QRS widening and repolarization abnormality ( R in aVL , [place] product ) Inferior infarct , age undetermined Abnormal ECG Confirmed by Elver Dickerson ([id number]), manager editorial FRENCH DOSS ([id number]) on 07/02/2025 9:37:36 AM Referred By: Confirmed By: Elver Dickerson
--- NOTE | 2025-07-01 14:00 | RAD_ITS ---
PROCEDURE: CHEST 1 VIEW (PORTABLE) 07/01/2025 REASON FOR EXAM: SYNCOPE/MEDIASTINAL EVAL TECHNIQUE: Frontal view of the chest. COMPARISON: January 25, 2022, August 30, 2018 FINDINGS: Hardware: EKG leads Heart: Mildly enlarged. The aorta is atherosclerotic. Lungs: Clear. Overlapping normal structures of the right upper lobe related to the inferior angle of the scapula, ribs and bronchovascular structures. No pneumothorax or pleural effusion. Bones: The bones are unremarkable. RAD/Chest 1 View (Portable) IMPRESSION: No acute abnormality. Mild cardiac enlargement. Reading Location: [id number]
[2025-07-01] MEDS: fentaNYL 100 MCG/2 ML Ampul 25 MCG IV ×2 (14:08→16:09)
[2025-07-01 14:19] LABS: Hematocrit 36.6 % (37-47); Hemoglobin 11.8 g/dL (12.0-15.0); Immature Granulocytes Count 0.060 X10^3/uL (0.0-0.0); Mean Corp Hgb Conc 32.2 g/dL (32-36); Mean Corpuscular Volume 87.8 fL (81-99); Mean Platelet Vol. 11.5 fl (6.2-12.0); NRBC Flagged by Analyzer 0 % (0-5); Platelet Count 296 K/mm3 (150-450); RBC Distribution Width CV 14.6 % (11.6-14.6); RBC Distribution Width SD 46.7 fl (35.1-43.9); Red Blood Count 4.17 M/mm3 (4.2-5.4); White Blood Count 11.6 K/mm3 (4.4-11.0)
--- NOTE | 2025-07-01 14:29 | PCM.CONS.C ---
Assessment & Plan Assessment/Plan (1) Atherosclerotic heart disease of [place] coronary artery without angina pectoris: QUALIFIERS: [place] vs. transplanted heart: [place] heart Qualified Code(s): I25.10 - Atherosclerotic heart disease of [place] coronary artery without angina pectoris PLAN: The patient has known severe disease in the right coronary artery and circumflex. 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 The patient denies any anginal type symptoms. She has been treated since 2018 with medical therapy for her coronary anatomy. Patient has been on metoprolol aspirin atorvastatin 40 mg daily Imdur 30 mg daily and her blood pressures been controlled with losartan 100 mg daily (2) Syncope: QUALIFIERS: Syncope type: unspecified Qualified Code(s): R55 - Syncope and collapse PLAN: This appears to be related to a 2-1 AV conduction with heart block. Heart rate is in the 35 to 40 bpm range when she transiently goes into 2-1 conduction for 10 to 15 seconds at a time. The patient feels lightheaded and near syncopal but has not passed out since she has been in the emergency department at [facility]. The patient did have an episode of bruce syncope witnessed in the home prior to being transported to the emergency department. The patient's only rate modulating drug is metoprolol succinate 25 mg which has been held her last dose was last evening. Will continue her other medical therapy. The patient will be monitored with transcutaneous pacing overnight and plan for an elective permanent pacemaker implantation tomorrow. PLAN: Plan 1. Plan for elective permanent pacemaker implantation tomorrow. 2. Continue with transcutaneous backup pacing. 3. Will follow-up with further recommendations once all the lab work is available. HPI Consult Data Date of Consult: 07/01/25 HPI Narrative Reason for Consultation: Syncope HPI Narrative: TRISTEN ZAMARRIPA, is a 89 F who presents with syncope earlier today. This was witnessed she did not fall or hit her head. She was actually laying on the couch when she actually went out because she was feeling bad. Patient presented the emergency department where on the monitor she was noted to go into second-degree AV block. Her heart rate averaged out at 49. But she became near syncopal with these events. The patient was placed on an external pacer which intermittently was pacing the patient. She did not lose consciousness or have near syncope with the pacer on demand mode. The only rate modulating drug the patient is on is metoprolol succinate 25 mg which she takes in the evening the last dose was last night. The patient had no previous history of syncope. She denies any chest pain denies any PND orthopnea denies any lower extremity edema. She does have known coronary disease in the right coronary artery and circumflex. That has been treated medically. She follows with the [facility]. The patient's last catheterization January 2022 there was severe disease in the right coronary and circumflex with inferior basilar wall motion abnormalities. These changes were unknown change from January 2018. The patient has continued to be treated with medical therapy and denies any anginal symptoms. The patient is aerobically active she does all her housework in her own home she appears much younger than her stated age. [facility] Medical History Depression Iron deficiency anemia B12 deficiency Atherosclerotic heart disease of [place] coronary artery without angina pectoris Essential (primary) hypertension Abnormal electrocardiogram Vitamin D deficiency GERD (gastroesophageal reflux disease) Anxiety Anemia Home Medications ?Medication ?Instructions ?Recorded ?Last Taken ?Type dexlansoprazole 60 mg 60 mg PO QDAY 05/01/18 09/03/18 History capsule,biphase delayed release (Dexilant) aspirin 81 mg tablet,delayed 81 mg PO QDAY 05/02/18 02/07/22 History release (Adult Aspirin Regimen) losartan 100 mg tablet 100 mg PO DAILY 01/25/22 02/07/22 History acetaminophen 650 mg 650 mg PO Q12H PRN 06/06/23 Unknown History tablet,extended release (Tylenol Arthritis Pain) ascorbic acid (vitamin C) 500 mg 500 mg PO DAILY 06/06/23 Unknown History tablet polysaccharide iron complex 150 mg 150 mg PO BID 06/06/23 Unknown History iron capsule (Ferrex) mecobalamin (vitamin B12) 1,000 1,000 mcg PO DAILY 03/04/24 Unknown History mcg lozenges metoprolol succinate 25 mg 25 mg PO DAILY #90 tabs 03/05/24 Unknown Rx tablet,extended release 24 hr isosorbide mononitrate 30 mg 30 mg PO DAILY #90 tabs 11/25/24 Unknown Rx tablet,extended release 24 hr cholecalciferol (vitamin D3) 25 5,000 unit PO DAILY 11/26/24 Unknown History mcg (1,000 unit) capsule venlafaxine 75 mg capsule,extended 150 mg PO QDAY 11/26/24 Unknown History release 24 hr (Effexor XR) atorvastatin 40 mg tablet 40 mg PO DAILY #90 tabs 03/10/25 Unknown Rx Allergy/AdvReac Type Severity Reaction Status Date / Time No Known Allergies Allergy Verified 07/01/25 13:25 Family History Brother Heart disease Myocardial infarction from [place] age 64 Surgical History History of appendectomy History of left heart catheterization (02/07/22) History of cataract surgery Hx of cataract surgery H/O left breast biopsy History of hysterectomy Social History Smoking Status: Never smoker alcohol intake: current alcohol intake frequency: holidays/special occasions only substance use type: does not use caffeine: Yes Type: coffee Number of servings: 2 ROS Constitutional Constitutional: Reports as per HPI Eyes Eyes: Reports systems reviewed and no addt'l complaints, except as documented ENT HEENT: Reports systems reviewed and no addt'l complaints, except as documented Cardiovascular Cardiovascular: Reports as per HPI Respiratory/Chest Respiratory/Chest: Reports systems reviewed and no addt'l complaints, except as documented Gastrointestinal Gastrointestinal: Reports systems reviewed and no addt'l complaints, except as documented Genitourinary Genitourinary: Reports systems reviewed and no addt'l complaints, except as documented Musculoskeletal Musculoskeletal: Reports systems reviewed and no addt'l complaints, except as documented Neurologic Neurologic: Reports as per HPI Psychiatric Psychiatric: Reports systems reviewed and no addt'l complaints, except as documented Endocrine Endocrinology: Reports systems reviewed and no addt'l complaints, except as documented Hematologic/Lymphatic Hematologic/Lymphatic: Reports systems reviewed and no addt'l complaints, except as documented Allergic/Immunologic Allergic/Immunologic: Reports systems reviewed and no addt'l complaints, except as documented Physical Exam Const alert and oriented x3 HEENT normocephalic Eyes EOMs intact bilaterally Neck no JVD and no carotid bruits Chest inspection of chest normal Resp normal respiratory effort and clear to auscultation bilaterally Cardio Cardio Narrative: Transiently the patient went into a 2:1 AV conduction with a heart rate of 40 bpm. Rate: regular rate Rhythm: regular rhythm Heart Sounds: S1 normal and S2 normal; Negative for click, gallop or murmur Extremity no pedal edema Neuro Neuro Narrative: Alert and oriented x 3 Psych mental status grossly normal Risk Stratification Risk Stratification Applicable: No Charges/Coding Visit Charges Inpatient E&M: 08991 Init Hosp L2 Objective Data Vital Signs: Vital Signs Temp Pulse Resp BP Pulse Ox O2 Del Method 98 F 69 17 166/79 H 100 Room Air 07/01/25 13:26 07/01/25 14:09 07/01/25 14:09 07/01/25 14:09 07/01/25 14:09 07/01/25 14:09 Oxygen Delivery Method Room Air Weight: 161 lb 6.054 oz Body Mass Index (BMI) 27.6 Intake & Output: Intake and Output for Last 24 Hours 06/29/25 06/30/25 07/01/25 23:59 23:59 23:59 Intake Total 0 / 0 Balance 0 / 0 Lab / Micro Data Attestation: I reviewed the patient's lab results. 07/01/25 14:09 07/01/25 14:09 Labs: Laboratory Results - last 24 hr 07/01/25 14:09: WBC 11.6 H, RBC 4.17 L, Hgb 11.8 L, Hct 36.6 L, MCV 87.8, MCH 28.3, MCHC 32.2, RDW Std Deviation 46.7 H, RDW Coeff of Jaqu[place] 14.6, Plt Count 296, MPV 11.5, Immature Gran % (Auto) 0.500, Neut % (Auto) 81.3 H, Lymph % (Auto) 11.8 L, Delta % (Auto) 5.9, Eos % (Auto) 0.3, Baso % (Auto) 0.2, Absolute Neuts (auto) 9.4 H, Absolute Lymphs (auto) 1.37, Nucleated RBC % 0 Rhythm Strip Rhythm Strip: Sinus Rhythm Rate: 75 Ectopy: None Cardiology Labs/Tests 07/01/25 14:09: WBC 11.6 H, RBC 4.17 L, Hgb 11.8 L, Hct 36.6 L, MCV 87.8, MCH 28.3, MCHC 32.2, Plt Count 296, MPV 11.5, Immature Gran % (Auto) 0.500, Neut % (Auto) 81.3 H, Lymph % (Auto) 11.8 L, Delta % (Auto) 5.9, Eos % (Auto) 0.3, Baso % (Auto) 0.2, Absolute Neuts (auto) 9.4 H, Nucleated RBC % 0 Rhythm: EKG: ECHO: Stress Test: Cardiac Cath: PCI: CT Surgery: Holter monitor: EPS: PPM: CXR: Chest CT Scan: Radiography Diagnostic Testing: Radiology Impression Chest X-Ray 07/01/25 14:00 IMPRESSION: No acute abnormality. Mild cardiac enlargement. Reading Location: [id number]
[2025-07-01 15:28] LABS: Troponin T High Sensitivity 16 ng/L (<=14)
[2025-07-01 15:47] LABS: Anion Gap 15 (5-15); BUN 21 mg/dL (4-19); BUN/Creat Ratio 28.9 RATIO (10-20); Calcium,Total 9.5 mg/dL (7.6-11.0); Carbon Dioxide 20.1 mmol/L (21.0-32.0); Chloride 102 mmol/L (98-108); Estimated Creatinine Clearance 46.74 ml/min (50-250); Glucose 123 mg/dL (70-99); Potassium 4.0 mmol/L (3.3-5.1)
--- NOTE | 2025-07-01 15:50 | PCM.HP.STD ---
HPI - General General Date of Admission: 07/01/25 Date of Service: 07/01/25 Chief Complaint: Syncopal episodes HPI Narrative TRISTEN ZAMARRIPA, is a 89-year-old female history of GERD, depression, hypertension who presented to [facility] ED 07/01/2025 due to episodes of near syncope and lightheadedness at random that started last night. She at some point reported she lost consciousness while lying on her couch as well. In the ED she had a long pause/asystole episode and lost consciousness but recovered prior to the ED doc going to the room. She takes 25 metoprolol succinate but no other AV kenyon blockers and denied any chest pain, no history of stents but does note history of coronary artery disease managed medically. In the ED temp 98, heart rate documented at 71 with blood pressure 165/75, respiratory rate 18 pulse ox 100% on room air. Given the above patient had stat EKG, initially EKG was unremarkable however she was left on the EKG machine until she had another episode and she appeared to be in Mobitz type II AV block, pacer pads were placed and she was hooked up to external pacing and was requiring frequent pacing initially. Chest x-ray in the ED with mild cardiac enlargement but no acute process, CBC with white blood cell count 11.6, hemoglobin 11.8, BMP [], troponin 16. Cardiology contacted and recommended admission with cardiology consult and possible pacemaker placement. Hospitalist contacted for admission. Patient evaluated at bedside with family present, reportedly patient did begin to have these episodes last night and had a little bit of nausea, she thought she ate too much so did not seek medical attention, symptoms persisted today and to me she did not endorse any loss of consciousness but she had endorsed at another time. Denies any chest pain or shortness of breath, has a chronic morning cough, had little bit of nausea earlier but none at this time. She also noted maybe she had some ringing in her left ear recently but she also got new hearing aids and is not sure if it was that or not, not presently complaining of this. [facility] Medical History Depression Iron deficiency anemia B12 deficiency Atherosclerotic heart disease of [place] coronary artery without angina pectoris Essential (primary) hypertension Abnormal electrocardiogram Vitamin D deficiency GERD (gastroesophageal reflux disease) Anxiety Anemia Home Medications ?Medication ?Instructions ?Recorded ?Last Taken ?Type dexlansoprazole 60 mg 60 mg PO QDAY 05/01/18 09/03/18 History capsule,biphase delayed release (Dexilant) aspirin 81 mg tablet,delayed 81 mg PO QDAY 05/02/18 02/07/22 History release (Adult Aspirin Regimen) losartan 100 mg tablet 100 mg PO DAILY 01/25/22 02/07/22 History acetaminophen 650 mg 650 mg PO Q12H PRN fever or pain 06/06/23 Unknown History tablet,extended release (Tylenol Arthritis Pain) ascorbic acid (vitamin C) 500 mg 500 mg PO DAILY 06/06/23 Unknown History tablet polysaccharide iron complex 150 mg 150 mg PO BID 06/06/23 Unknown History iron capsule (Ferrex) mecobalamin (vitamin B12) 1,000 1,000 mcg PO DAILY 03/04/24 Unknown History mcg lozenges metoprolol succinate 25 mg 25 mg PO DAILY #90 tabs 03/05/24 Unknown Rx tablet,extended release 24 hr isosorbide mononitrate 30 mg 30 mg PO DAILY #90 tabs 11/25/24 Unknown Rx tablet,extended release 24 hr cholecalciferol (vitamin D3) 25 5,000 unit PO DAILY 11/26/24 Unknown History mcg (1,000 unit) capsule venlafaxine 75 mg capsule,extended 150 mg PO QDAY 11/26/24 Unknown History release 24 hr (Effexor XR) atorvastatin 40 mg tablet 40 mg PO DAILY #90 tabs 03/10/25 Unknown Rx Allergy/AdvReac Type Severity Reaction Status Date / Time No Known Allergies Allergy Verified 07/01/25 13:25 Family History Brother Heart disease Myocardial infarction from [place] age 64 Surgical History History of appendectomy History of left heart catheterization (02/07/22) History of cataract surgery Hx of cataract surgery H/O left breast biopsy History of hysterectomy Social History Smoking Status: Never smoker alcohol intake: current alcohol intake frequency: holidays/special occasions only substance use type: does not use caffeine: Yes Type: coffee Number of servings: 2 ROS ROS Narrative General: Denies fever/chills HENT: Denies headache, denies stuffy nose, denies sore throat EYES: Denies changes in vision Resp: Little bit of the morning cough, denies shortness of breath Cardiac: Denies chest pain GI: Denies abdominal pain, denies changes in bowel, did have a little bit of nausea earlier in last night : Denies changes in urination Extremity: Denies swelling MSK: Denies weakness Neuro: Denies any numbness/tingling Heme: Denies any bleeding or bruising Skin: Denies rashes Psychiatric: No complaints voiced Vital Signs Vital Signs Vital Signs: 07/01/25 13:26 07/01/25 13:40 07/01/25 14:09 Temperature 98 F Temperature Source Oral Pulse Rate 71 76 69 Respiratory Rate 18 18 17 Blood Pressure 161/146 H 165/75 H 166/79 H Blood Pressure Mean 151 105 108 Pulse Ox 99 100 100 Oxygen Delivery Method Room Air Room Air Room Air 07/01/25 14:49 07/01/25 14:49 07/01/25 15:06 Temperature 97.9 F Temperature Source Pulse Rate 71 70 69 Respiratory Rate 20 H 18 18 Blood Pressure 140/81 H 140/81 H 145/77 H Blood Pressure Mean 100 100 99 Pulse Ox 97 95 98 Oxygen Delivery Method Room Air Room Air Weight Weight: 73.2 kg Body Mass Index (BMI) 27.6 Physical Exam Narrative General: Alert, oriented, no apparent distress HEENT: Atraumatic, normocephalic Eyes: Anicteric, normal conjunctiva, extraocular movements grossly intact Neck: Supple Respiratory: Clear to auscultation bilaterally, normal respiratory effort Cardiovascular: Regular rate and rhythm at time of my exam GI: Soft, nontender, nondistended Extremities: No edema Musculoskeletal: Moving all extremities Neuro: No overt focal neurological deficits Skin: No rashes appreciated Psych: Cooperative Results Lab / Micro Data 07/01/25 14:09 07/01/25 14:09 Labs: Laboratory Results - last 24 hr 07/01/25 14:09: WBC 11.6 H, RBC 4.17 L, Hgb 11.8 L, Hct 36.6 L, MCV 87.8, MCH 28.3, MCHC 32.2, RDW Std Deviation 46.7 H, RDW Coeff of Jaquan 14.6, Plt Count 296, MPV 11.5, Immature Gran % (Auto) 0.500, Neut % (Auto) 81.3 H, Lymph % (Auto) 11.8 L, [place] % (Auto) 5.9, Eos % (Auto) 0.3, Baso % (Auto) 0.2, Absolute Neuts (auto) 9.4 H, Absolute Lymphs (auto) 1.37, Nucleated RBC % 0, Sodium 137, Potassium 4.0, Chloride 102, Carbon Dioxide 20.1 L, Anion Gap 15, BUN 21 H, Creatinine 0.74, Estim Creat Clear Calc 46.74 L, Est GFR (MDRD) Non-Af 78, BUN/Creatinine Ratio 28.9 H, Glucose 123 H, Calcium 9.5, Troponin T High Sens 16 H Rhythm Strip Rhythm Strip: Sinus Rhythm Rate: 75 Ectopy: None Imaging Radiology Impression Chest X-Ray 07/01/25 14:00 IMPRESSION: No acute abnormality. Mild cardiac enlargement. Reading Location: [id number] Assessment & Plan Assessment/Plan (1) Syncope: QUALIFIERS: Syncope type: unspecified Qualified Code(s): R55 - Syncope and collapse (2) Atrioventricular block, Mobitz type 2: PLAN: Plan # Syncope secondary to heart block, suspected Mobitz type II - EKG captured with seem to be Mobitz type II AV block and it correlated with her symptoms - She did have syncopal episode with loss of consciousness in the ED during 1 of these events - Pacer pads in place, was requiring frequent pacing at 1 point, seems to have spaced out slightly but will be admitted to the ICU - Cardiology consult -Hold metoprolol -Will check mag and TSH -Possible pacemaker placement tomorrow pending progress, will make n.p.o. at midnight # History of coronary artery disease - No stents but does have known disease and follows with cardiology, being managed medically - Cardiology following -Holding beta-liya and Imdur but will continue other home medications #GERD -Continue PPI #Depression/anxiety -Continue home medications #Hypertension - Holding home beta-liya #DVT ppx: SCDs Nallely Fischer MD Charges/Coding Visit Charges Inpatient E&M: 66873 Init Hosp L2
[2025-07-01 16:43] LABS: Troponin T High Sens 2 HR 12 ng/L (<=14)
[2025-07-01 19:07] LABS: Troponin T High Sens 4 HR 17 ng/L (<=14)
--- OUTSIDE RECORDS SUMMARY | 2025-07-01 21:00 | XMS RPT_ITS | CCD ---
Author Organization [facility] Care Team Providers Care Meter Installer Name Role Phone Dr. David Mace Chi Primary Care Provider Rodri, Dr. David Bagley Referring Provider Dr. Deangelo Dhillon Attending Provider [phone] Rodri, Dr. David Bagley Primary Care Provider Rodri, Dr. David Bagley Referring Provider [phone] Tl BASKETBALL COACH, BASKETBALL COACH-C Deloris Attending Provider Dr. Deangelo Dhillon Attending Provider Rodri, Dr. David Bagley Primary Care Provider Rodri, Dr. David Bagley Referring Provider Tl DIAZ, BASKETBALL COACH-C Deloris Attending Provider Dr. Deangelo Dhillon Attending Provider [phone] ALEX Ruiz Attending Provider Madeline DIAZ, BASKETBALL COACH-C Kiley Cespedes Attending Provider [phone] Dr. David Mace Chi Primary Care Provider Rodri, Dr. David Bagley Referring Provider Dr. Hernan Randolph Attending Provider ALEX Ruiz Referring Provider Dr. David Mace MD, Chi Primary Care Provider Dr. David Mace MD, Chi Attending Provider [phone] Deangelo Dhillon Attending Unavailable RodriDavid flor Chi Referring Unavailable Rodri, David Bagley Primary Care Unavailable Rodri, David Bagley Primary Care Unavailable RodriDavid flor Chi Attending Unavailable David Mace Chi Attending Unavailable David Mace Chi Primary Care Unavailable Anton ORELLANA, Dr. Carrington Emergency Provider Jayla ORELLANA, Dr. Raay Attending Provider Amado ORELLANA, Dr. Browning Admit Provider [phone] Amado ORELLANA, Dr. Browning Attending Provider Medications Current Medications Medication Drug Class(es) Dates Sig (Normalized) Sig (Original) 8 hr acetaminophen 650 mg extended release oral tablet (11 sources) Start: 06-06-2023 take 1 tablet by mouth every twelve hours as needed for pain Acetaminophen (Tylenol Arthritis Pain) 650 mg tablet extended release Active 650 mg PO Q12H as needed for fever or pain June 06, 2023 11:33am Start: 11-28-2022 End: 06-06-2023 take 1 tablet by mouth every eight hours Acetaminophen (Tylenol Arthritis Pain) 650 mg tablet extended release Discontinued 650 mg PO Q8H November 28, 2022 1:00am June 06, 2023 11:33am ascorbic acid 500 mg oral tablet (3 sources) Vitamin C Start: 06-06-2023 take 1 tablet by mouth once daily Ascorbic Acid (Vitamin C) 500 mg tablet Active 500 mg PO DAILY June 06, 2023 12:00am aspirin 81 mg delayed release oral tablet (12 sources) Platelet Aggregation Inhibitor, Nonsteroidal Anti-inflammatory Drug Start: 05-02-2018 take 1 tablet by mouth once daily Aspirin (Adult Aspirin Regimen) 81 mg tablet,delayed release (DR/EC) Active 81 mg PO daily May 02, 2018 12:00am cholecalciferol 0.025 mg oral capsule (20 sources) Vitamin D Start: 11-26-2024 take 1 capsule by mouth once daily Cholecalciferol (Vitamin D3) 25 mcg (1,000 unit) capsule Active 5000 U PO DAILY November 26, 2024 3:10pm Start: 11-28-2022 End: 11-26-2024 take 1 capsule by mouth once daily Cholecalciferol (Vitamin D3) 25 mcg (1,000 unit) capsule Discontinued 25 ug PO DAILY November 28, 2022 1:00am November 26, 2024 3:11pm Start: 05-01-2018 End: 08-30-2018 take 1 capsule by mouth every month Cholecalciferol (Vitamin D3) 50,000 unit capsule Discontinued 35583 U PO EVERY MONTH May 01, 2018 12:00am August 30, 2018 11:07am dexlansoprazole 60 mg delayed release oral capsule (12 sources) Proton Pump Inhibitor Start: 05-01-2018 take 1 capsule by mouth once daily Dexlansoprazole (Dexilant) 60 mg capsule,biphase delayed releas Active 60 mg PO daily May 01, 2018 12:00am losartan potassium 100 mg oral tablet (12 sources) Angiotensin 2 Receptor Meche Start: 2022 take 1 tablet by mouth once daily Losartan 100 mg tablet Active 100 mg PO DAILY 2022 1:00am Mecobalamin (Vitamin B12) 1,000 mcg lozenge (2 sources) Start: 03-04-2024 take 1000 ug by mouth once daily Mecobalamin (Vitamin B12) 1,000 mcg lozenge Active 1000 ug PO DAILY March 04, 2024 12:00am allow to dissolve in mouth OR may chew lightly before swallowing 24 hr metoprolol succinate 25 mg extended release oral tablet (20 sources) beta-Adrenergic Meche Start: 02-28-2023 End: 03-05-2024 take 1 tablet by mouth once daily Metoprolol Succinate 25 mg tablet extended release 24 hr Active 25 mg PO DAILY 90 March 05, 2024 2:54pm Start: 02-07-2022 End: 02-28-2023 take 1 tablet by mouth once daily Metoprolol Succinate 50 mg tablet extended release 24 hr Discontinued 50 mg PO DAILY 90 3 February 07, 2022 12:00am February 28, 2023 1:26pm Start: 2022 End: 02-07-2022 take 1 tablet by mouth once daily Metoprolol Succinate (Toprol Xl) 25 mg tablet extended release 24 hr Discontinued 25 mg PO DAILY 90 3 2022 1:00am February 07, 2022 10:03am Start: 09-05-2018 End: 01-29-2020 take 1 capsule by mouth once daily Metoprolol Succinate 25 mg capsule,sprinkle,ER 24hr Discontinued 25 mg PO DAILY 30 June 14, 2019 10:16am January 29, 2020 2:47pm Multivitamin (Daily Multi-Vitamin) tablet (12 sources) Start: 01-26-2021 take 1 tablet by mouth once daily Multivitamin (Daily Multi-Vitamin) tablet Active 1 TABLET PO DAILY January 26, 2021 12:02pm Start: 01-26-2021 End: 06-06-2023 Multivitamin (Daily Multi-Vi tamin) tablet Discontinued 1 {tbl} PO DAILY January 26, 2021 1:00am June 06, 2023 11:33am Start: 01-26-2021 End: 06-06-2023 take 1 tablet by mouth once daily Multivitamin (Daily Multi-Vitamin) tablet Discontinued 1 TABLET PO DAILY January 26, 2021 12:00am June 06, 2023 10:33am Start: 01-26-2021 take 1 tablet by mainor th once daily Multivitamin (Daily Multi-Vitamin) tablet Active 1 TABLET PO DAILY January 26, 2021 12:00am Start: 01-26-2021 take 1 tablet by mainor th once daily Multivitamin (Daily Multi-Vitamin) tablet Active 1 TABLET PO DAILY January 26, 2021 1:00am polysaccharide iron complex 150 mg oral capsule (13 sources) Start: 06-06-2023 Polysaccharide Iron Complex (Ferrex 150) 150 mg iron capsule Active 150 mg PO TWICE A DAY June 06, 2023 11:31am Start: 06-09-2022 End: 06-06-2023 Polysaccharide Iron Complex (Ferrex 150) 150 mg iron capsule Discontinued 150 mg PO DAILY June 09, 2022 12:00am June 06, 2023 11:33am 24 hr venlafaxine 75 mg extended release oral capsule (14 sources) Serotonin and Norepinephrine Reuptake Inhibitor Start: 05-02-2018 End: 11-26-2024 take 1 capsule by mouth once daily Venlafaxine (Effexor Xr) 75 mg capsule,extended release 24hr Active 150 mg PO daily November 26, 2024 3:10pm Completed/Discontinued Medications Medication Drug Class(es) Dates Sig (Normalized) Sig (Original) atorvastatin 40 mg oral tablet (20 sources) HMG-CoA Reductase Inhibitor Start: 03-04-2024 End: 03-10-2025 take 1 tablet by mouth once daily Atorvastatin 40 mg tablet Discontinued 40 mg PO DAILY 90 3 March 04, 2024 10:26am March 10, 2025 11:58am Start: 09-05-2018 End: 01-29-2020 take 1 tablet by mouth once daily Atorvastatin 20 mg tablet Discontinued 20 mg PO DAILY 30 June 14, 2019 10:10am January 29, 2020 2:46pm B-Complex With Vitamin C (8 sources) Start: 06-09-2022 End: 11-28-2022 B-Complex With Vitamin C Dis continued ML .Route MONTHLY June 09, 2022 12:00am November 28, 2022 2:34pm monthlymonthly Start: 06-09-2022 End: 11-28-2022 B-Complex With Vitamin C Dis continued ML .Route MONTHLY June 08, 2022 11:00pm November 28, 2022 1:34pm monthlymonthly Start: 06-09-2022 B-Complex With Vitamin C Active ML .Route June 09, 2022 12:00am monthlymonthly B-Complex With Vitamin C solution (2 sources) Start: 06-09-2022 End: 11-28-2022 B-Complex With Vitamin C solution Discontinued mL .Route June 09, 2022 12:00am November 28, 2022 2:34pm monthlymonthly clopidogrel 75 mg oral tablet (12 sources) [id number] Platelet Inhibitor Start: 08-30-2018 End: 09-04-2018 take 1 tablet by mouth once daily Clopidogrel (Plavix) 75 mg tablet Discontinued 75 mg PO DAILY 30 August 30, 2018 12:00am September 04, 2018 5:09pm ergocalciferol 1.25 mg oral capsule (20 sources) Provitamin D2 Compound Start: 06-13-2019 End: 01-29-2020 Ergocalciferol (Vitamin D2) 50,000 unit capsule Discontinued 89657 U PO EVERY WEEK June 13, 2019 12:00am January 29, 2020 2:47pm Start: 08-30-2018 End: 12-06-2018 Ergocalciferol (Vitamin D2) 50,000 unit capsule Discontinued 60448 U PO EVERY MONTH August 30, 2018 12:00am December 06, 2018 4:44pm ferrous sulfate 325 mg oral tablet (20 sources) Start: 12-14-2022 End: 03-02-2023 take 1 tablet by mouth once daily Ferrous Sulfate 325 mg (65 mg iron) tablet Discontinued 325 mg PO DAILY December 14, 2022 1:00am March 02, 2023 2:46pm Start: 01-29-2020 End: 06-09-2022 take 1 tablet by mouth once daily Ferrous Sulfate (Ferosul) 325 mg (65 mg iron) tablet Discontinued 325 mg PO DAILY 2022 1:00am June 09, 2022 10:50am hydroCHLOROthiazide 12.5 mg oral tablet (20 sources) Thiazide Diuretic Start: 03-04-2024 End: 11-26-2024 take 1 tablet by mouth once daily Hydrochlorothiazide 12.5 mg tablet Discontinued 12.5 mg PO DAILY March 04, 2024 12:00am November 26, 2024 3:11pm Start: 12-14-2022 End: 06-06-2023 take 1 tablet by mouth once daily Hydrochlorothiazide 12.5 mg tablet Discontinued 12.5 mg PO DAILY December 14, 2022 1:00am June 06, 2023 11:46am Start: 01-26-2021 End: 12-07-2022 take 1 tablet by mouth once daily Hydrochlorothiazide 12.5 mg tablet Discontinued 12.5 mg PO DAILY January 26, 2021 1:00am December 07, 2022 12:06pm hydroCHLOROthiazide 12.5 mg / losartan potassium 100 mg oral tablet (12 sources) Thiazide Diuretic, Angiotensin 2 Receptor Meche Start: 08-30-2018 End: 2022 Losartan-Hydrochlorothiazide 100-12.5 mg tablet Discontinued 1 {tbl} PO DAILY August 30, 2018 12:00am 2022 12:04pm Start: 08-30-2018 End: 2022 take 1 tablet by mouth once daily Losartan-Hydrochlorothiazide Discontinue d 1 TABLET PO DAILY August 29, 2018 11:00pm 2022 11:04am hydroCHLOROthiazide 12.5 mg / valsartan 320 mg oral tablet (20 sources) Thiazide Diuretic, Angiotensin 2 Receptor Meche Start: 06-13-2019 End: 06-14-2019 Valsartan-Hydrochlorothiazid e 320-12.5 mg tablet Discontinued 1 {tbl} PO DAILY June 13, 2019 12:00am June 14, 2019 10:10am Start: 06-13-2019 End: 06-14-2019 take 1 tablet by mouth once daily Valsartan-Hydrochlorothiazide Discontinu ed 1 TABLET PO DAILY June 12, 2019 11:00pm June 14, 2019 9:10am Start: 05-01-2018 End: 08-30-2018 Valsartan-Hydrochlorothiazid e 320-12.5 mg tablet Discontinued 1 {tbl} PO daily May 01, 2018 12:00am August 30, 2018 11:07am Start: 05-01-2018 End: 08-30-2018 take 1 tablet by mouth once daily Valsartan-Hydrochlorothiazide Discontinu ed 1 TABLET PO daily April 30, 2018 11:00pm August 30, 2018 10:07am 24 hr isosorbide mononitrate 30 mg extended release oral tablet (13 sources) Nitrate Vasodilator Start: 11-30-2022 End: 11-25-2024 take 1 tablet by mouth once daily, then take 1 tablet by mouth every twenty-four hours Isosorbide Mononitrate 30 mg tablet extended release 24 hr Discontinued 30 mg PO DAILY 3 November 22, 2023 11:20am November 25, 2024 1:38pm naproxen 250 mg oral tablet (12 sources) Nonsteroidal Anti-inflammatory Drug Start: 2022 End: 11-28-2022 take 1 tablet by mouth twice daily Naproxen 250 mg tablet Discontinued 250 mg PO TWICE A DAY 2022 1:00am November 28, 2022 2:37pm x 4 days pantoprazole 40 mg delayed release oral tablet (12 sources) Proton Pump Inhibitor Start: 2022 End: 11-28-2022 take 1 tablet by mouth once daily Pantoprazole 40 mg tablet,delayed release (DR/EC) Discontinued 40 mg PO DAILY 2022 1:00am November 28, 2022 2:37pm vitamin b12 1 mg/ml injectable solution (8 sources) Vitamin B12 Start: 11-28-2022 End: 03-04-2024 inject 1000 ug by intramuscular injection every month Cyanocobalamin (Vitamin B-12) 1,000 mcg/mL kit Discontinued 1000 ug IM EVERY MONTH November 28, 2022 1:00am March 04, 2024 10:24am Start: 11-28-2022 inject 1000 ug by in tramuscular injection every month Cyanocobalamin (Vitamin B-12) Active 1000 MCG IM EVERY MONTH November 28, 2022 12:00am Problems Problem Classification Problem Date Documented Date Episodic/Chronic Conduction disorders (2 sources) Mobitz type II atrioventricular block; Translations: [Atrioventricular block, second degree] 07-01-2025 Chronic Coronary atherosclerosis and other heart disease (20 sources) Coronary atherosclerosis; Translations: [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 pectoris] Chronic Comment on above: 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 The ejection fraction is preserved with segmental wall motion abnormalities involving the basal inferior wall. In comparison to the previous catheterization from 2018 the above findings appear to be similar 02/07/22 Deficiency and other anemia (5 sources) Iron deficiency anemia; Translations: [Iron deficiency anemia, unspecified] 03-02-2023 Episodic Deficiency and other anemia (2 sources) Iron deficiency anemia, unspecified; Translations: [Iron deficiency anemia, unspecified] 03-02-2023 Episodic Essential hypertension (20 sources) Essential hypertension; Translations: [Essential (primary) hypertension] Onset: 06-04-2025 Chronic Nonspecific chest pain (20 sources) Chest pain on exertion; Translations: [Chest pain, unspecified] Episodic Other circulatory disease (5 sources) Abnormal foot pulse; Translations: [Other specified symptoms and signs involving the circulatory and respiratory systems] 02-28-2023 Episodic Other circulatory disease (2 sources) Other specified symptoms and signs involving the circulatory and respiratory systems; Translations: [Other symptoms involving cardiovascular system] 02-28-2023 Episodic Other circulatory disease (1 source) H/O: heart disorder; Translations: [Personal history of other diseases of the circulatory system] 07-01-2025 Episodic Other lower respiratory disease (12 sources) Dyspnea on exertion; Translations: [Dyspnea, unspecified] 2022 Episodic Other lower respiratory disease (4 sources) Other forms of dyspnea; Translations: [Other respiratory abnormalities] 11-28-2022 Episodic Other screening for suspected conditions (not mental disorders or infectious disease) (20 sources) Thallium stress test abnormal; Translations: [Abnormal result of other cardiovascular function study] 08-27-2018 Episodic Syncope (2 sources) Syncope; Translations: [Syncope and collapse] 07-01-2025 Episodic Results Test Name Value Interpretation Reference Range Facility Absolute lymphocyte countOrd ered By: Zeb Walton on 07-01-2025 Lymphocytes Auto (Unsp spec) [#/Vol] 1.37 10*3/uL 0.83-4.51 [facility] Absolute neutrophil countOrd ered By: Zeb Walton on 07-01-2025 Neutrophils (Bld) [#/Vol] 9.4 10*3/uL High 2.0-7.7 [facility] Anion gap in Serum or Plasma Ordered By: Zeb Walton on 07-01-2025 Anion gap [Moles/Vol] 15 mmol/L 5-15 [facility] Automated lymphocyte count a s percentage of total leukocytesOrdered By: Zeb Walton on 07-01-2025 Lymphocytes/100 WBC Auto (Unsp spec) 11.8 % Low 19-41 [facility] BUN/creatinine ratioOrdered By: Zeb Walton on 07-01-2025 Urea nitrogen/Creatinine [Mass ratio] 28.9 mg/mg High 10-20 [facility] Basophil percentageOrdered B y: Zeb Walton on 07-01-2025 Basophils/100 WBC (Bld) 0.2 % 0-1 [facility] Carbon dioxide, total [Moles /volume] in Central venous bloodOrdered By: Zeb Walton on 07-01-2025 CO2 [Moles/Vol] 20.1 mmol/L Low 21.0-32.0 [facility] Chloride assayOrdered By: Marta Walton on 07-01-2025 Chloride [Moles/Vol] 102 mmol/L 98-108 [facility] Eosinophil percentageOrdered By: Zeb Walton on 07-01-2025 Eosinophils/100 WBC (Bld) 0.3 % 0-5 [facility] Erythrocyte distribution wid th ratioOrdered By: Zeb Walton on 07-01-2025 Erythrocyte distribution width (RBC) [Ratio] 14.6 % 11.6-14.6 [facility] Erythrocyte distribution wid th standard deviationOrdered By: Zeb Walton on 07-01-2025 Erythrocyte distribution width (RBC) [Ratio] 46.7 fl High 35.1-43.9 [facility] Glomerular filtration rate ( GFR) estimation/1.73 sq m using serum, plasma, or whole bOrdered By: Zeb Walton on 07-01-2025 GFR/1.73 sq M.predicted among non-blacks MDRD (S/P/Bld) [Vol rate/Area] 78 mL/min/{1.73_m2} >60 [facility] Comment on above: mL/min/1.73m2 CKD-EP I Creatinine Equation (2020) Hematocrit Auto (Bld) [Volum e fraction]Ordered By: Zeb Walton on 07-01-2025 Hematocrit (Bld) [Volume fraction] 36.6 % Low 37-47 [facility] Hemoglobin measurementOrdere d By: Zeb Walton on 07-01-2025 Hemoglobin (Bld) [Mass/Vol] 11.8 g/dL Low 12.0-15.0 [facility] Immature granulocytes/100 WB C Auto (Bld)Ordered By: Zeb Walton on 07-01-2025 Immature granulocytes/100 WBC (Bld) 0.500 % 0.0-0.9 [facility] Comment on above: IG% - Immature Granu locytes (promyelocytes, myelocytes and metamyelocytes) > 1% indicates that a LEFT SHIFT is Present. MCV (mean corpuscular volume ) determinationOrdered By: Zeb Walton on 07-01-2025 MCV (RBC) [Entitic vol] 87.8 fL 81-99 [facility] Mean corpuscular hemoglobin (MCH) determinationOrdered By: Zeb Walton on 07-01-2025 MCH (RBC) [Entitic mass] 28.3 pg 27.0-32.0 [facility] Mean corpuscular hemoglobin concentration (MCHC) determinationOrdered By: Zeb Walton on 07-01-2025 MCHC (RBC) [Mass/Vol] 32.2 g/dL 32-36 [facility] Mean platelet volume determi nationOrdered By: Zeb Walton on 07-01-2025 Platelet mean volume (Bld) [Entitic vol] 11.5 fL 6.2-12.0 [facility] Monocyte percentageOrdered B y: Zeb Walton on 07-01-2025 Monocytes/100 WBC (Bld) 5.9 % 0-10 [facility] Neutrophil percentageOrdered By: Zeb Walton on 07-01-2025 Neutrophils/100 WBC (Bld) 81.3 % High 47-70 [facility] Nucleated red blood cell per centageOrdered By: Zeb Walton on 07-01-2025 Nucleated RBC/100 WBC (Bld) [Ratio] 0 % 0-5 [facility] Platelet countOrdered By: Marta Walton on 07-01-2025 Platelets (Bld) [#/Vol] 296 10*3/uL 150-450 [facility] Potassium measurement (mass/ volume)Ordered By: Zeb Walton on 07-01-2025 Potassium (Unsp spec) [Mass/Vol] 4.0 mmol/L 3.3-5.1 [facility] RBC Auto (Bld) [#/Vol]Ordere d By: Zeb Walton on 07-01-2025 RBC (Bld) [#/Vol] 4.17 10*6/uL Low 4.2-5.[address] [facility] Serum creatinine measurement (mass/volume)Ordered By: Zeb Walton on 07-01-2025 Creatinine [Mass/Vol] 0.74 mg/dL 0.70-1.20 [facility] Serum glucose measurement (m ass/volume)Ordered By: Zeb Walton on 07-01-2025 Glucose [Mass/Vol] 123 mg/dL High 70-99 [facility] Serum or plasma calcium yolie urement (mass/volume)Ordered By: Zeb Walton on 07-01-2025 Calcium [Mass/Vol] 9.5 mg/dL 7.6-11.0 [facility] Serum or plasma urea nitroge n measurement (mass/volume)Ordered By: Zeb Walton on 07-01-2025 Urea nitrogen [Mass/Vol] 21 mg/dL High 4-19 [facility] Sodium levelOrdered By: Chase Walton on 07-01-2025 Sodium [Moles/Vol] 137 mmol/L 133-145 [facility] Troponin T.cardiac [Mass/vol ume] in Serum or Plasma by High sensitivity methodOrdered By: Zeb Walton on 07-01-2025 Troponin T.cardiac High sensitivity method [Mass/Vol] 16 ng/L High <14 [facility] White blood cell (WBC) count Ordered By: Zeb Walton on 07-01-2025 WBC (Bld) [#/Vol] 11.6 10*3/uL High 4.4-11.[address] [facility] Absolute lymphocyte countOrd ered By: David Mace on 05-30-2025 Lymphocytes Auto (Unsp spec) [#/Vol] 1.72 10*3/uL 0.83-4.51 [facility] Absolute neutrophil countOrd ered By: David Mace on 05-30-2025 Neutrophils (Bld) [#/Vol] 4.2 10*3/uL 2.0-7.7 [facility] Anion gap in Serum or Plasma Ordered By: David Rodri on 05-30-2025 Anion gap [Moles/Vol] 12 mmol/L 5-15 [facility] Automated lymphocyte count a s percentage of total leukocytesOrdered By: David Mace on 05-30-2025 Lymphocytes/100 WBC Auto (Unsp spec) 24.7 % 19-41 [facility] BUN/creatinine ratioOrdered By: David Mace on 05-30-2025 Urea nitrogen/Creatinine [Mass ratio] 27.2 mg/mg High 10-20 [facility] Basophil percentageOrdered B y: David Rodri on 05-30-2025 Basophils/100 WBC (Bld) 0.3 % 0-1 [facility] Bilirubin, totalOrdered By: David Mace on 05-30-2025 Bilirubin [Mass/Vol] 0.30 mg/dL 0.00-1.30 [facility] CBC W/Diff, Automatedon 05-20 Absolute Lymph 1.72 X10 3/uL Normal 0.83-4.51 [facility] Comment on above: Performed By: #### L [id number], [id number], L100.0100, [id number] #### [facility] [address] [place], [address] Absolute Neut 4.2 X10 3/uL Normal 2.0-7.7 [facility] Comment on above: Performed By: #### L [id number], [id number], L100.0100, [id number] #### [facility] [address] [place], [address] Basophils/100 WBC (Bld) 0.3 % Normal 0-1 [facility] Comment on above: Performed By: #### L [id number], [id number], L100.0100, [id number] #### [facility] [address] [place], [address] Eosinophils/100 WBC (Bld) 2.6 % Normal 0-5 [facility] Comment on above: Performed By: #### L [id number], [id number], L100.0100, [id number] #### [facility] [address] [place], [address] Erythrocyte distribution width (RBC) [Ratio] 14.9 % High 11.6-14.6 [facility] Comment on above: Performed By: #### L [id number], [id number], L100.0100, [id number] #### [facility] [address] [place], [address] Hematocrit (Bld) [Volume fraction] 39.6 % Normal 37-47 [facility] Comment on above: Performed By: #### L [id number], [id number], L100.0100, [id number] #### [facility] [address] [place], [address] Hemoglobin (Bld) [Mass/Vol] 12.5 g/dL Normal 12.0-15.0 [facility] Comment on above: Performed By: #### L [id number], [id number], L100.0100, [id number] #### [facility] [address] [place], [address] IG% 0.300 Normal 0.0-0.9 [facility] Comment on above: Result Comment: IG% - Immature Granulocytes (promyelocytes, myelocytes and metamyelocytes) > 1% indicates that a LEFT SHIFT is Present. Performed By: #### L [id number], [id number], L100.0100, [id number] #### [facility] [address] [place], [address] Lymphocytes/100 WBC (Bld) 24.7 % Normal 19-41 [facility] Comment on above: Performed By: #### L [id number], [id number], L100.0100, [id number] #### [facility] [address] [place], [address] MCH (RBC) [Entitic mass] 28.0 pg Normal 27.0-32.0 [facility] Comment on above: Performed By: #### L [id number], [id number], L100.0100, [id number] #### [facility] [address] [place], [address] MCHC (RBC) [Mass/Vol] 31.6 g/dL Low 32-36 [facility] Comment on above: Performed By: #### L [id number], [id number], L100.0100, [id number] #### [facility] [address] [place], [address] MCV (RBC) [Entitic vol] 88.8 fL Normal 81-99 [facility] Comment on above: Performed By: #### L [id number], [id number], L100.0100, [id number] #### [facility] [address] [place], [address] Monocytes/100 WBC (Bld) 12.3 % High 0-10 [facility] Comment on above: Performed By: #### L [id number], [id number], L100.0100, [id number] #### [facility] [address] [place], [address] Neutrophils/100 WBC (Bld) 59.8 % Normal 47-70 [facility] Comment on above: Performed By: #### L [id number], [id number], L100.0100, [id number] #### [facility] [address] [place], [address] Nucleated RBC (Bld) [#/Vol] 0 10*3/uL Normal 0-5 [facility] Comment on above: Performed By: #### L [id number], [id number], L100.0100, [id number] #### [facility] [address] [place], [address] Platelet mean volume (Bld) [Entitic vol] 10.6 fL Normal 6.2-12.0 [facility] Comment on above: Performed By: #### L 501.9520, L506.1001, L100.0100, L500.4050 #### [facility] [address] [place], [address] Platelets (Bld) [#/Vol] 318 10*3/uL Normal 150-450 [facility] Comment on above: Performed By: #### L 501.9520, L506.1001, L100.0100, L500.4050 #### [facility] [address] [place], [address] RBC (Bld) [#/Vol] 4.46 10*6/uL Normal 4.2-5.[address] [facility] Comment on above: Performed By: #### L 501.9520, L506.1001, L100.0100, L500.4050 #### [facility] [address] [place], [address] RDW SD 48.4 fl High 35.1-43.9 [facility] Comment on above: Performed By: #### L 501.9520, L506.1001, L100.0100, L500.4050 #### [facility] [address] [place], [address] WBC (Bld) [#/Vol] 7.0 10*3/uL Normal 4.4-11.0 [facility] Comment on above: Performed By: #### L 501.9520, L506.1001, L100.0100, L500.4050 #### [facility] [address] [place], [address] Carbon dioxide, total [Moles /volume] in Central venous bloodOrdered By: David Mace on 05-30-2025 CO2 [Moles/Vol] 23.6 mmol/L 21.0-32.0 [facility] Chloride assayOrdered By: Rajiv Mace on 05-30-2025 Chloride [Moles/Vol] 103 mmol/L 98-108 [facility] Comprehensive Metabolic Prof ilon 05-30-2025 Albumin [Mass/Vol] 4.3 g/dL Normal 3.4-4.8 [facility] Comment on above: Performed By: #### L 501.9520, L506.1001, L100.0100, L500.4050 #### [facility] [address] [place], [address] Albumin/Globulin [Mass ratio] 1.4 {ratio} Normal 0.9-2.4 [facility] Comment on above: Performed By: #### L 501.9520, L506.1001, L100.0100, L500.4050 #### [facility] [address] [place], [address] ALK PHOS 110 U/L High 35-104 [facility] Comment on above: Performed By: #### L 501.9520, L506.1001, L100.0100, L500.4050 #### [facility] [address] [place], [address] ALT [Catalytic activity/Vol] 20 U/L Normal <=34 [facility] Comment on above: Performed By: #### L 501.9520, L506.1001, L100.0100, L500.4050 #### [facility] [address] [place], [address] AST [Catalytic activity/Vol] 22 U/L Normal <=31 [facility] Comment on above: Performed By: #### L 501.9520, L506.1001, L100.0100, L500.4050 #### [facility] [address] [place], [address] Bilirubin [Mass/Vol] 0.30 mg/dL Normal 0.00-1.30 [facility] Comment on above: Performed By: #### L 501.9520, L506.1001, L100.0100, L500.4050 #### [facility] [address] [place], [address] BUN/CRE 27.2 RATIO High 10-20 [facility] Comment on above: Performed By: #### L 501.9520, L506.1001, L100.0100, L500.4050 #### [facility] [address] [place], [address] Calcium [Mass/Vol] 9.6 mg/dL Normal 7.6-11.0 [facility] Comment on above: Performed By: #### L 501.9520, L506.1001, L100.0100, L500.4050 #### [facility] [address] [place], [address] Chloride [Moles/Vol] 103 mmol/L Normal 98-108 [facility] Comment on above: Performed By: #### L 501.9520, L506.1001, L100.0100, L500.4050 #### [facility] [address] [place], [address] CO2 [Moles/Vol] 23.6 mmol/L Normal 21.0-32.0 [facility] Comment on above: Performed By: #### L 501.9520, L506.1001, L100.0100, L500.4050 #### [facility] [address] [place], [address] Creatinine [Mass/Vol] 0.90 mg/dL Normal 0.70-1.20 [facility] Comment on above: Performed By: #### L 501.9520, L506.1001, L100.0100, L500.4050 #### [facility] [address] [place], [address] GAP 12 Normal 5-15 [facility] Comment on above: Performed By: #### L 501.9520, L506.1001, L100.0100, L500.4050 #### [facility] [address] [place], [address] GFR/1.73 sq M.predicted among non-blacks MDRD (S/P/Bld) [Vol rate/Area] 61 mL/min/{1.73_m2} Normal >60 [facility] Comment on above: Result Comment: mL/m in/1.73m2 CKD-EPI Creatinine Equation (2020) Performed By: #### L 501.9520, L506.1001, L100.0100, L500.4050 #### [facility] [address] [place], [address] Globulin (S) [Mass/Vol] 3.0 g/dL Normal 2.2-4.[address] [facility] Comment on above: Performed By: #### L 501.9520, L506.1001, L100.0100, L500.4050 #### [facility] [address] [place], [address] Glucose [Mass/Vol] 101 mg/dL High 70-99 [facility] Comment on above: Performed By: #### L 501.9520, L506.1001, L100.0100, L500.4050 #### [facility] [address] [place], [address] Potassium [Moles/Vol] 4.2 mmol/L Normal 3.3-5.1 [facility] Comment on above: Performed By: #### L 501.9520, L506.1001, L100.0100, L500.4050 #### [facility] [address] [place], [address] Sodium [Moles/Vol] 138 mmol/L Normal 133-145 [facility] Comment on above: Performed By: #### L 501.9520, L506.1001, L100.0100, L500.4050 #### [facility] [address] [place], [address] T PROT 7.3 g/dL Normal 5.9-8.4 [facility] Comment on above: Performed By: #### L 501.9520, L506.1001, L100.0100, L500.4050 #### [facility] [address] [place], [address] Urea nitrogen [Mass/Vol] 24 mg/dL High 4-19 [facility] Comment on above: Performed By: #### L 501.9520, L506.1001, L100.0100, L500.4050 #### [facility] [address] [place], [address] Eosinophil percentageOrdered By: David Mace on 05-30-2025 Eosinophils/100 WBC (Bld) 2.6 % 0-5 [facility] Erythrocyte distribution wid th ratioOrdered By: David Mace on 05-30-2025 Erythrocyte distribution width (RBC) [Ratio] 14.9 % High 11.6-14.6 [facility] Erythrocyte distribution wid th standard deviationOrdered By: David Mace on 05-30-2025 Erythrocyte distribution width (RBC) [Ratio] 48.4 fl High 35.1-43.9 [facility] Glomerular filtration rate ( GFR) estimation/1.73 sq m using serum, plasma, or whole bOrdered By: David Mace 05-30-2025 GFR/1.73 sq M.predicted among non-blacks MDRD (S/P/Bld) [Vol rate/Area] 61 mL/min/{1.73_m2} >60 [facility] Comment on above: mL/min/1.73m2 CKD-EP I Creatinine Equation (2020) Hematocrit Auto (Bld) [Volum e fraction]Ordered By: David Rodri 05-30-2025 Hematocrit (Bld) [Volume fraction] 39.6 % 37-47 [facility] Hemoglobin measurementOrdere d By: David Rodri 05-30-2025 Hemoglobin (Bld) [Mass/Vol] 12.5 g/dL 12.0-15.0 [facility] Immature granulocytes/100 WB C Auto (Bld)Ordered By: David Rodri 05-30-2025 Immature granulocytes/100 WBC (Bld) 0.300 % 0.0-0.9 [facility] Comment on above: IG% - Immature Granu locytes (promyelocytes, myelocytes and metamyelocytes) > 1% indicates that a LEFT SHIFT is Present. Laboratory - Chemistry and C hemistry - challengeOrdered By: David Rodri 05-30-2025 AST [Catalytic activity/Vol] 22 U/L <32 [facility] MCV (mean corpuscular volume ) determinationOrdered By: David Rodri 05-30-2025 MCV (RBC) [Entitic vol] 88.8 fL 81-99 [facility] Mean corpuscular hemoglobin (MCH) determinationOrdered By: David Rodri 05-30-2025 MCH (RBC) [Entitic mass] 28.0 pg 27.0-32.0 [facility] Mean corpuscular hemoglobin concentration (MCHC) determinationOrdered By: David Rodri 05-30-2025 MCHC (RBC) [Mass/Vol] 31.6 g/dL Low 32-36 [facility] Mean platelet volume determi nationOrdered By: David Mace on 05-30-2025 Platelet mean volume (Bld) [Entitic vol] 10.6 fL 6.2-12.0 [facility] Monocyte percentageOrdered B y: David Mace on 05-30-2025 Monocytes/100 WBC (Bld) 12.3 % High 0-10 [facility] Neutrophil percentageOrdered By: David Mace on 05-30-2025 Neutrophils/100 WBC (Bld) 59.8 % 47-70 [facility] Nucleated red blood cell per centageOrdered By: David Mace on 05-30-2025 Nucleated RBC/100 WBC (Bld) [Ratio] 0 % 0-5 [facility] Platelet countOrdered By: Rajiv Mace on 05-30-2025 Platelets (Bld) [#/Vol] 318 10*3/uL 150-450 [facility] Potassium measurement (mass/ volume)Ordered By: David Mace on 05-30-2025 Potassium (Unsp spec) [Mass/Vol] 4.2 mmol/L 3.3-5.1 [facility] RBC Auto (Bld) [#/Vol]Ordere d By: David Mace on 05-30-2025 RBC (Bld) [#/Vol] 4.46 10*6/uL 4.2-5.[address] [facility] Serum creatinine measurement (mass/volume)Ordered By: David Mace on 05-30-2025 Creatinine [Mass/Vol] 0.90 mg/dL 0.70-1.20 [facility] Serum globulin measurementOr dered By: David Mace 05-30-2025 Globulin (S) [Mass/Vol] 3.0 g/dL 2.2-4.2 [facility] Serum glucose measurement (m ass/volume)Ordered By: David Mace 05-30-2025 Glucose [Mass/Vol] 101 mg/dL High 70-99 [facility] Serum or plasma alanine duvall otransferase (ALT) measurementOrdered By: David Mace 05-30-2025 ALT [Catalytic activity/Vol] 20 U/L <35 [facility] Serum or plasma albumin yolie urement (mass/volume)Ordered By: David Mace on 05-30-2025 Albumin [Mass/Vol] 4.3 g/dL 3.4-4.8 [facility] Serum or plasma albumin/glob ulin mass ratioOrdered By: David Lunaok on 05-30-2025 Albumin/Globulin [Mass ratio] 1.4 {ratio} 0.9-2.4 [facility] Serum or plasma alkaline stanley sphatase measurementOrdered By: David Mace on 05-30-2025 ALP [Catalytic activity/Vol] 110 U/L High 35-104 [facility] Serum or plasma calcium yolie urement (mass/volume)Ordered By: David Mace on 05-30-2025 Calcium [Mass/Vol] 9.6 mg/dL 7.6-11.0 [facility] Serum or plasma urea nitroge n measurement (mass/volume)Ordered By: David Mace on 05-30-2025 Urea nitrogen [Mass/Vol] 24 mg/dL High 4-19 [facility] Sodium levelOrdered By: Dvaid Mace on 05-30-2025 Sodium [Moles/Vol] 138 mmol/L 133-145 [facility] TSH DL <= 0.005 mIU/L QnOrde red By: David Mace on 05-30-2025 TSH Qn 0.977 uIU/mL 0.300-4.200 [facility] Thyroid Stim Hormone (TSH)on 05-30-2025 TSH 0.977 uIU/mL Normal 0.300-4.200 [facility] Comment on above: Performed By: #### L 501.9520, L506.1001, L100.0100, L500.4050 #### [facility] [address] [place], [address] Total proteinOrdered By: David Mace on 05-30-2025 Protein [Mass/Vol] 7.3 g/dL 5.9-8.4 [facility] Vitamin D,25 Hydroxyon 05-30 Vitamin D 25-OH 44.6 ng/mL Normal 30-100 [facility] Comment on above: Result Comment: Shania min D Status Deficiency: <20 ng/mL (50nmol/L) Insufficiency: 20-30 ng/mL (50-75 nmol/L) Sufficiency: 30-100 ng/mL (75-250 nmol/L) Toxicity: >100 ng/mL (>250 nmol/L) Performed By: #### L 501.9520, L506.1001, L100.0100, L500.4050 #### [facility] [address] [place], [address] White blood cell (WBC) count Ordered By: David Mace on 05-30-2025 WBC (Bld) [#/Vol] 7.0 10*3/uL 4.4-11.0 [facility] CBC W/Diff, Automatedon Absolute Lymph 2.30 X10 3/uL Normal 0.83-4.51 [facility] Comment on above: Performed By: #### L 100.0100, L506.1000, L500.4050, L501.9520 #### [facility] [address] [place], [address] Absolute Neut 7.5 X10 3/uL Normal 2.0-7.7 [facility] Comment on above: Performed By: #### L 100.0100, L506.1000, L500.4050, L501.9520 #### [facility] [address] [place], [address] Basophils/100 WBC (Bld) 0.4 % Normal 0-1 [facility] Comment on above: Performed By: #### L 100.0100, L506.1000, L500.4050, L501.9520 #### [facility] [address] [place], [address] Eosinophils/100 WBC (Bld) 2.0 % Normal 0-5 [facility] Comment on above: Performed By: #### L 100.0100, L506.1000, L500.4050, L501.9520 #### [facility] [address] [place], [address] Erythrocyte distribution width (RBC) [Ratio] 14.8 % High 11.6-14.6 [facility] Comment on above: Performed By: #### L 100.0100, L506.1000, L500.4050, L501.9520 #### [facility] [address] [place], [address] Hematocrit (Bld) [Volume fraction] 38.6 % Normal 37-47 [facility] Comment on above: Performed By: #### L 100.0100, L506.1000, L500.4050, L501.9520 #### [facility] [address] [place], [address] Hemoglobin (Bld) [Mass/Vol] 11.8 g/dL Low 12.0-15.0 [facility] Comment on above: Performed By: #### L 100.0100, L506.1000, L500.4050, L501.9520 #### [facility] [address] [place], [address] IG% 0.800 Normal 0.0-0.9 [facility] Comment on above: Result Comment: IG% - Immature Granulocytes (promyelocytes, myelocytes and metamyelocytes) > 1% indicates that a LEFT SHIFT is Present. Performed By: #### L 100.0100, L506.1000, L500.4050, L501.9520 #### [facility] [address] [place], [address] Lymphocytes/100 WBC (Bld) 20.7 % Normal 19-41 [facility] Comment on above: Performed By: #### L 100.0100, L506.1000, L500.4050, L501.9520 #### [facility] [address] [place], [address] MCH (RBC) [Entitic mass] 27.3 pg Normal 27.0-32.0 [facility] Comment on above: Performed By: #### L 100.0100, L506.1000, L500.4050, L501.9520 #### [facility] [address] [place], [address] MCHC (RBC) [Mass/Vol] 30.6 g/dL Low 32-36 [facility] Comment on above: Performed By: #### L 100.0100, L506.1000, L500.4050, L501.9520 #### [facility] [address] [place], [address] MCV (RBC) [Entitic vol] 89.4 fL Normal 81-[address] [facility] Comment on above: Performed By: #### L 100.0100, L506.1000, L500.4050, L501.9520 #### [facility] [address] [place], [address] Monocytes/100 WBC (Bld) 8.4 % Normal 0-[address] [facility] Comment on above: Performed By: #### L 100.0100, L506.1000, L500.4050, L501.9520 #### [facility] [address] [place], [address] Neutrophils/100 WBC (Bld) 67.7 % Normal 47-70 [facility] Comment on above: Performed By: #### L 100.0100, L506.1000, L500.4050, L501.9520 #### [facility] [address] [place], [address] Nucleated RBC (Bld) [#/Vol] 0 10*3/uL Normal 0-5 [facility] Comment on above: Performed By: #### L 100.0100, L506.1000, L500.4050, L501.9520 #### [facility] [address] [place], [address] Platelet mean volume (Bld) [Entitic vol] 10.5 fL Normal 6.2-12.0 [facility] Comment on above: Performed By: #### L 100.0100, L506.1000, L500.4050, L501.9520 #### [facility] [address] [place], [address] Platelets (Bld) [#/Vol] 410 10*3/uL Normal 150-450 [facility] Comment on above: Performed By: #### L 100.0100, L506.1000, L500.4050, L501.9520 #### [facility] [address] [place], [address] RBC (Bld) [#/Vol] 4.32 10*6/uL Normal 4.2-5.[address] [facility] Comment on above: Performed By: #### L 100.0100, L506.1000, L500.4050, L501.9520 #### [facility] [address] [place], [address] RDW SD 47.8 fl High 35.1-43.9 [facility] Comment on above: Performed By: #### L 100.0100, L506.1000, L500.4050, L501.9520 #### [facility] [address] [place], [address] WBC (Bld) [#/Vol] 11.1 10*3/uL High 4.4-11.[address] [facility] Comment on above: Performed By: #### L 100.0100, L506.1000, L500.4050, L501.9520 #### [facility] [address] [place], [address] Cardiology Visit Reporton Cardiology Visit Report [facility] [address] [place] [address] OFFICE VISIT Date of Service: 11/26/24 MR#: [id number] Acct: [id number] Name: TRISTEN ZAMARRIPA Rep #: [id number] : 1935 Provider: Dr. Deangelo Dhillon MD Age/Sex: 89/F Location: [facility] [place] Status: Signed HPI HPI History of Present Illness Details: TRISTEN ZAMARRIPA, is a 89 F who presents to the office today for a follow-up visit. She has a history of coronary artery disease (Moderate coronary artery disease involving moderately severe mid to distal circumflex artery with totally occluded posterior descending artery) followed in a catheterization in January 2022. Medical therapy was recommended and she has done well since the increase in her beta-meche dose. She also has a history of hypertension. From a cardiac standpoint, the patient is doing well. She denies any palpitations, chest pain, pressure or heaviness. She does have occasional SOB with rushing. She denies Orthopnea, and PND. She does not have bleeding issues; no blood in urine, stool or nosebleeds. She denies any decrease in energy level, myalgias, or claudication. She does not have edema, or sudden weight gain. She does have occasional lightheadedness with quick positional changes. She denies dizziness, syncopal or near syncopal episodes, and headaches. 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: No Accompanied by: Self Is patient in pain?: No Allergies No Known Allergies Allergy (Verified 11/26/24 14:09) Medications ???Medication ???Instructions ???Recorded ???Confirmed ???Type dexlansoprazole 60 mg 60 mg PO QDAY 05/01/18 11/26/24 History capsule,biphase delayed release (Dexilant) aspirin 81 mg tablet,delayed 81 mg PO QDAY 05/02/18 11/26/24 History release (Adult Aspirin Regimen) losartan 100 mg tablet 100 mg PO DAILY 01/25/22 11/26/24 History acetaminophen 650 mg 650 mg PO Q12H PRN 06/06/23 11/26/24 History tablet,extended release (Tylenol Arthritis Pain) ascorbic acid (vitamin C) 500 mg 500 mg PO DAILY 06/06/23 11/26/24 History tablet polysaccharide iron complex 150 mg 150 mg PO BID 06/06/23 11/26/24 History iron capsule (Ferrex) atorvastatin 40 mg tablet 40 mg PO DAILY #90 tabs 03/04/24 11/26/24 Rx mecobalamin (vitamin B12) 1,000 1,000 mcg PO DAILY 03/04/24 11/26/24 History mcg lozenges metoprolol succinate 25 mg 25 mg PO DAILY #90 tabs 03/05/24 11/26/24 Rx tablet,extended release 24 hr isosorbide mononitrate 30 mg 30 mg PO DAILY #90 tabs 11/25/24 11/26/24 Rx tablet,extended release 24 hr cholecalciferol (vitamin D3) 25 5,000 unit PO DAILY 11/26/24 11/26/24 History mcg (1,000 unit) capsule venlafaxine 75 mg capsule,extended 150 mg PO QDAY 11/26/24 11/26/24 History release 24 hr (Effexor XR) Have you fallen in the past year?: Yes (stumbled over a ramp - no injuries) [facility] Medical History Depression Iron deficiency anemia B12 deficiency 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 pectoris Essential (primary) hypertension Abnormal electrocardiogram Vitamin D deficiency GERD (gastroesophageal reflux disease) Anxiety Anemia Surgical History History of appendectomy History of left heart catheterization (02/07/22) History of cataract surgery Hx of cataract surgery H/O left breast biopsy History of hysterectomy Family History Brother Heart disease Myocardial infarction from [place] age 63 Social History Smoking Status: Never smoker alcohol intake: current alcohol intake frequency: holidays/special occasions only substance use type: does not use caffeine: Yes Type: coffee Number of servings: 2 ROS Const Const: Positive for fatigue; Negative for weakness, headache(s), daytime sleepiness or difficulty sleeping ENT ENT: Positive for balance problems; Negative for headache(s), dizziness or Nosebleed/epistaxis Cardio Chest Pain: No Palpitations: No Edema: None Resp Respiratory: Positive for SOB with activity; Negative for SOB at rest, SOB orthopnea SOB lying down or Cough GI GI: Negative nausea, vomiting or heartburn Musc Musc: Positive for balance problems Neuro Neuro: Negative for dizziness, lightheadedness, near syncope, headache(s) or we (more content not included)... Normal [facility] Comprehensive Metabolic Prof ilon 11-26-2024 Albumin [Mass/Vol] 3.7 g/dL Normal 3.2-5.0 [facility] Comment on above: Performed By: #### L 100.0100, L506.1000, L500.4050, L501.9520 #### [facility] [address] [place], [address] Albumin/Globulin [Mass ratio] 0.9 {ratio} Normal 0.9-2.4 [facility] Comment on above: Performed By: #### L 100.0100, L506.1000, L500.4050, L501.9520 #### [facility] [address] [place], [address] ALK P 110 U/L Normal 45-117 [facility] Comment on above: Performed By: #### L 100.0100, L506.1000, L500.4050, L501.9520 #### [facility] [address] [place], [address] ALT [Catalytic activity/Vol] 25 U/L Normal 13-56 [facility] Comment on above: Performed By: #### L 100.0100, L506.1000, L500.4050, L501.9520 #### [facility] [address] [place], [address] AST [Catalytic activity/Vol] 15 U/L Normal 15-37 [facility] Comment on above: Performed By: #### L 100.0100, L506.1000, L500.4050, L501.9520 #### [facility] [address] [place], [address] Bilirubin [Mass/Vol] 0.40 mg/dL Normal 0.20-1.00 [facility] Comment on above: Result Comment: For patients on eltrombopag therapy, use of Dimension [place] TBIL is not recommended. Performed By: #### L 100.0100, L506.1000, L500.4050, L501.9520 #### [facility] [address] [place], [address] BUN/CRE 21.8 RATIO High 10-20 [facility] Comment on above: Performed By: #### L 100.0100, L506.1000, L500.4050, L501.9520 #### [facility] [address] [place], [address] CA,Total 9.5 mg/dL Normal 8.5-10.1 [facility] Comment on above: Performed By: #### L 100.0100, L506.1000, L500.4050, L501.9520 #### [facility] [address] [place], [address] Chloride [Moles/Vol] 104 mmol/L Normal 98-107 [facility] Comment on above: Performed By: #### L 100.0100, L506.1000, L500.4050, L501.9520 #### [facility] [address] [place], [address] CO2 [Moles/Vol] 27.0 mmol/L Normal 21.0-32.0 [facility] Comment on above: Performed By: #### L 100.0100, L506.1000, L500.4050, L501.9520 #### [facility] [address] [place], [address] Creatinine [Mass/Vol] 0.92 mg/dL Normal 0.55-1.02 [facility] Comment on above: Result Comment: The validity of the calculated GFR GFRAA in patients over 70 years has not been determined. Clinical correlation is essential. Performed By: #### L 100.0100, L506.1000, L500.4050, L501.9520 #### [facility] [address] [place], [address] EST GFR - AA 74 mL/min Normal >60 [facility] Comment on above: Result Comment: Afri can [place] GFR Calc Performed By: #### L 100.0100, L506.1000, L500.4050, [id number] #### [facility] [address] [place], [address] GAP 8 Normal 5-15 [facility] Comment on above: Performed By: #### L 100.0100, L506.1000, [id number], [id number] #### [facility] [address] [place], [address] GFR/1.73 sq M.predicted among non-blacks MDRD (S/P/Bld) [Vol rate/Area] 61 mL/min/{1.73_m2} Normal >60 [facility] Comment on above: Result Comment: Non- GFR Calc Performed By: #### L 100.0100, L506.1000, [id number], [id number] #### [facility] [address] [place], [address] Globulin (S) [Mass/Vol] 4.1 g/dL Normal 2.2-4.[address] [facility] Comment on above: Performed By: #### L 100.0100, L506.1000, [id number], [id number] #### [facility] [address] [place], [address] Glucose [Mass/Vol] 99 mg/dL Normal 74-106 [facility] Comment on above: Performed By: #### L 100.0100, L506.1000, [id number], [id number] #### [facility] [address] [place], [address] Potassium [Moles/Vol] 3.8 mmol/L Normal 3.5-5.1 [facility] Comment on above: Performed By: #### L 100.0100, L506.1000, [id number], [id number] #### [facility] [address] [place], [address] Sodium [Moles/Vol] 138 mmol/L Normal 136-145 [facility] Comment on above: Performed By: #### L 100.0100, L506.1000, [id number], [id number] #### [facility] [address] [place], [address] T PROT 7.8 g/dL Normal 6.4-8.2 [facility] Comment on above: Performed By: #### L 100.0100, L506.1000, [id number], [id number] #### [facility] [address] [place], [address] Urea nitrogen [Mass/Vol] 20 mg/dL High 7-18 [facility] Comment on above: Performed By: #### L 100.0100, L506.1000, [id number], [id number] #### [facility] [address] [place], [address] Thyroid Stim Hormone (TSH)on 11-26-2024 TSH 1.270 uIU/mL Normal 0.358-3.740 [facility] Comment on above: Performed By: #### L 100.0100, L506.1000, [id number], [id number] #### [facility] [address] [place], [address] Vitamin D,25 Hydroxyon 11-26 Vitamin D 25-OH 54.9 ng/mL Normal [facility] Comment on above: Result Comment: Shania min D 25(OH) Status Range Deficiency <20 ng/mL (50nmol/L) Insufficiency 20 - 30 ng/mL (50 - 75 nmol/L) Sufficiency 30 - 100 ng/mL (75 - 250 nmol/L) Toxicity >100 ng/mL (>250 nmol/L) Performed By: #### L 100.0100, L506.1000, [id number], [id number] #### [facility] [address] [place], [address] Laboratory - Microbiology an d Antimicrobial susceptibilityOrdered By: David Mace on 11-27-2023 SARS-CoV-2 (COVID-19) RNA JESU+probe Ql (Unsp spec) SARS-CoV-2 (COVID 19 PCR) [facility] Absolute lymphocyte countOrd ered By: David Mace on 11-23-2023 Lymphocytes Auto (Unsp spec) [#/Vol] 1.26 10*3/uL 0.83-4.51 [facility] Basophil percentageOrdered B y: David Mace on 11-23-2023 Basophils/100 WBC (Bld) 0.4 % 0-1 [facility] Bilirubin [Mass/Vol] 0.60 mg/dL 0.20-1.00 [facility] Comment on above: For patients on eltr ombopag therapy, use of Dimension [place] TBIL is not recommended. Chloride [Moles/Vol] 102 mmol/L 98-107 [facility] Eosinophils/100 WBC (Bld) 1.3 % 0-5 [facility] Glucose [Mass/Vol] 94 mg/dL 74-106 [facility] Neutrophils (Bld) [#/Vol] 4.6 10*3/uL 2.0-7.7 [facility] Neutrophils/100 WBC (Bld) 63.9 % 47-70 [facility] Potassium [Moles/Vol] 3.8 mmol/L 3.5-5.1 [facility] Protein [Mass/Vol] 7.3 g/dL 6.4-8.2 [facility] Sodium [Moles/Vol] 135 mmol/L 136-145 [facility] WBC (Bld) [#/Vol] 7.1 10*3/uL 4.4-11.0 [facility] Blood erythrocytes count (nu mber/volume)Ordered By: David Mace on 11-23-2023 RBC (Bld) [#/Vol] 4.13 10*6/uL 4.2-5.[address] [facility] Blood hemoglobin measurement (mass/volume)Ordered By: David Mace on 11-23-2023 Hemoglobin (Bld) [Mass/Vol] 11.6 g/dL 12.0-15.0 [facility] Blood lymphocytes/100 leukoc ytesOrdered By: David Mace on 11-23-2023 Lymphocytes/100 WBC (Bld) 17.6 % 19-41 [facility] Blood monocytes/100 leukocyt esOrdered By: David Mace on 11-23-2023 Monocytes/100 WBC (Bld) 16.2 % 0-10 [facility] Blood platelet mean volumeOr dered By: David Mace on 11-23-2023 Platelet mean volume (Bld) [Entitic vol] 11.1 fL 6.2-12.0 [facility] Determination of erythrocyte mean corpuscular volume (MCV)Ordered By: David Mace on 11-23-2023 MCV (RBC) [Entitic vol] 91.5 fL 81-99 [facility] Hematocrit Auto (Bld) [Volum e fraction]Ordered By: David Mace on 11-23-2023 Hematocrit (Bld) [Volume fraction] 37.8 % 37-47 [facility] - Chemistry and C hemistry - challengeOrdered By: David Mace on 11-23-2023 ALP [Catalytic activity/Vol] 82 U/L 45-117 [facility] ALT [Catalytic activity/Vol] 23 U/L 13-56 [facility] CO2 [Moles/Vol] 27.0 mmol/L 21.0-32.0 [facility] Globulin (S) [Mass/Vol] 3.8 g/dL 2.2-4.2 [facility] Urea nitrogen/Creatinine [Mass ratio] 19.4 mg/mg 10-20 [facility] - Hematology and Cell countsOrdered By: David Mace on 11-23-2023 Erythrocyte distribution width (RBC) [Entitic vol] 49.1 fL 35.1-43.9 [facility] Erythrocyte distribution width (RBC) [Ratio] 14.6 % 11.6-14.6 [facility] Immature granulocytes/100 WBC (Bld) 0.600 % 0.0-0.9 [facility] Comment on above: IG% - Immature Granu locytes (promyelocytes, myelocytes and metamyelocytes) > 1% indicates that a LEFT SHIFT is Present. MCH (RBC) [Entitic mass] 28.1 pg 27.0-32.0 [facility] Nucleated RBC/100 WBC (Bld) [Ratio] 0 % 0-5 [facility] MCHC Auto (RBC) [Mass/Vol]Or dered By: David Mace on 11-23-2023 MCHC (RBC) [Mass/Vol] 30.7 g/dL 32-36 [facility] No Panel InformationOrdered By: David Mace on 11-23-2023 Estimated GFR (MDRD) Amer 78 mL/min >60 [facility] Comment on above: GFR Calc Estimated GFR (MDRD) Non-Af Amer 65 mL/min >60 [facility] Comment on above: Non- GFR Calc Thyroid Stimulating Hormone (TSH) 0.97 uIU/mL 0.358-3.74 [facility] Vitamin D 25-Hydroxy 45.0 ng/mL [facility] Comment on above: Vitamin D 25(OH) Sta tus Range Deficiency <20 ng/mL (50nmol/L) Insufficiency 20 - 30 ng/mL (50 - 75 nmol/L) Sufficiency 30 - 100 ng/mL (75 - 250 nmol/L) Toxicity >100 ng/mL (>250 nmol/L) Platelets bldOrdered By: David Mace on 11-23-2023 Platelets (Bld) [#/Vol] 293 10*3/uL 150-450 [facility] Serum or plasma albumin yolie urement (mass/volume)Ordered By: David Mace on 11-23-2023 Albumin [Mass/Vol] 3.5 g/dL 3.2-5.0 [facility] Serum or plasma albumin/glob ulin mass ratioOrdered By: David Mace on 11-23-2023 Albumin/Globulin [Mass ratio] 0.9 {ratio} 0.9-2.4 [facility] Serum or plasma calcium yolie urement (mass/volume)Ordered By: David Mace on 11-23-2023 Calcium [Mass/Vol] 9.0 mg/dL 8.5-10.1 [facility] Serum or plasma creatinine m easurement (mass/volume)Ordered By: David Mace on 11-23-2023 Creatinine [Mass/Vol] 0.88 mg/dL 0.55-1.02 [facility] Comment on above: The validity of the calculated GFR & GFRAA in patients over 70 years has not been determined. Clinical correlation is essential. Serum or plasma urea nitroge n measurement (mass/volume)Ordered By: David Mace on 11-23-2023 Urea nitrogen [Mass/Vol] 17 mg/dL 7-18 [facility] Thin prep Papanicolaou smear with manual screeningOrdered By: David Mace on 11-23-2023 Thin prep Papanicolaou smear with manual screening 22 U/L 15-37 [facility] Thin prep Papanicolaou smear with manual screening 6 5-15 [facility] Absolute lymphocyte countOrd ered By: Kiley Correa on 05-15-2023 Lymphocytes Auto (Unsp spec) [#/Vol] 1.49 10*3/uL 0.83-4.51 [facility] Basophil percentageOrdered B y: Kiley Correa on 05-15-2023 Basophils/100 WBC (Bld) 0.4 % 0-1 [facility] Bilirubin [Mass/Vol] 0.30 mg/dL 0.20-1.00 [facility] Comment on above: For patients on eltr ombopag therapy, use of Dimension [place] TBIL is not recommended. Chloride [Moles/Vol] 103 mmol/L 98-107 [facility] Eosinophils/100 WBC (Bld) 2.2 % 0-5 [facility] Glucose [Mass/Vol] 101 mg/dL 74-106 [facility] Comment on above: Fasting Glucose resu lt from 100 to 125 mg/dL suggests IMPAIRED HOMEOSTASIS per A.D.A. criteria. Neutrophils (Bld) [#/Vol] 4.8 10*3/uL 2.0-7.7 [facility] Neutrophils/100 WBC (Bld) 65.6 % 47-70 [facility] Potassium [Moles/Vol] 4.2 mmol/L 3.5-5.1 [facility] Protein [Mass/Vol] 7.6 g/dL 6.4-8.2 [facility] Sodium [Moles/Vol] 135 mmol/L 136-145 [facility] WBC (Bld) [#/Vol] 7.3 10*3/uL 4.4-11.0 [facility] Blood erythrocytes count (nu mber/volume)Ordered By: Kiley Correa on 05-15-2023 RBC (Bld) [#/Vol] 4.28 10*6/uL 4.2-5.[address] [facility] Blood hemoglobin measurement (mass/volume)Ordered By: Kiley Correa on 05-15-2023 Hemoglobin (Bld) [Mass/Vol] 11.9 g/dL 12.0-15.0 [facility] Blood lymphocytes/100 leukoc ytesOrdered By: Kiley Correa on 05-15-2023 Lymphocytes/100 WBC (Bld) 20.5 % 19-41 [facility] Blood monocytes/100 leukocyt esOrdered By: Kiley Correa on 05-15-2023 Monocytes/100 WBC (Bld) 9.8 % 0-[address] [facility] Blood platelet mean volumeOr dered By: Kiley Correa on 05-15-2023 Platelet mean volume (Bld) [Entitic vol] 10.1 fL 6.2-12.0 [facility] Determination of erythrocyte mean corpuscular volume (MCV)Ordered By: Kiley Correa on 05-15-2023 MCV (RBC) [Entitic vol] 87.4 fL 81-99 [facility] Hematocrit Auto (Bld) [Volum e fraction]Ordered By: Kiley Correa on 05-15-2023 Hematocrit (Bld) [Volume fraction] 37.4 % 37-47 [facility] Iron measurement (mass/mass) Ordered By: Kiley Correa on 05-15-2023 Iron (Unsp spec) [Mass/Mass] 35 ug/dL 50-170 [facility] - Chemistry and C hemistry - challengeOrdered By: Kiley Correa on 05-15-2023 ALP [Catalytic activity/Vol] 77 U/L 45-117 [facility] ALT [Catalytic activity/Vol] 24 U/L 13-56 [facility] CO2 [Moles/Vol] 25.0 mmol/L 21.0-32.0 [facility] Globulin (S) [Mass/Vol] 4.0 g/dL 2.2-4.2 [facility] Urea nitrogen/Creatinine [Mass ratio] 17.1 mg/mg 10-20 [facility] - Hematology and Cell countsOrdered By: Kiley Correa on 05-15-2023 Erythrocyte distribution width (RBC) [Entitic vol] 47.4 fL 35.1-43.9 [facility] Erythrocyte distribution width (RBC) [Ratio] 14.9 % 11.6-14.6 [facility] Immature granulocytes/100 WBC (Bld) 1.500 % 0.0-0.9 [facility] Comment on above: IG% - Immature Granu locytes (promyelocytes, myelocytes and metamyelocytes) > 1% indicates that a LEFT SHIFT is Present. MCH (RBC) [Entitic mass] 27.8 pg 27.0-32.0 [facility] Nucleated RBC/100 WBC (Bld) [Ratio] 0 % 0-5 [facility] MCHC Auto (RBC) [Mass/Vol]Or dered By: Kiley Correa on 05-15-2023 MCHC (RBC) [Mass/Vol] 31.8 g/dL 32-36 [facility] No Panel InformationOrdered By: Kiley Correa on 05-15-2023 Estimated GFR (MDRD) Amer 64 mL/min >60 [facility] Comment on above: GFR Calc Estimated GFR (MDRD) Non-Af Amer 53 mL/min >60 [facility] Comment on above: Non- GFR Calc Thyroid Stimulating Hormone (TSH) 0.67 uIU/mL 0.358-3.74 [facility] Total Iron Binding Capacity 280 ug/dL 250-450 [facility] Vitamin D 25-Hydroxy 58.8 ng/mL [facility] Comment on above: Vitamin D 25(OH) Sta tus Range Deficiency <20 ng/mL (50nmol/L) Insufficiency 20 - 30 ng/mL (50 - 75 nmol/L) Sufficiency 30 - 100 ng/mL (75 - 250 nmol/L) Toxicity >100 ng/mL (>250 nmol/L) Platelets bldOrdered By: Thalia Correa on 05-15-2023 Platelets (Bld) [#/Vol] 350 10*3/uL 150-450 [facility] Serum or plasma albumin yolie urement (mass/volume)Ordered By: Kiley Correa on 05-15-2023 Albumin [Mass/Vol] 3.6 g/dL 3.2-5.0 [facility] Serum or plasma albumin/glob ulin mass ratioOrdered By: Kiley Correa on 05-15-2023 Albumin/Globulin [Mass ratio] 0.9 {ratio} 0.9-2.4 [facility] Serum or plasma calcium yolie urement (mass/volume)Ordered By: Kiley Correa on 05-15-2023 Calcium [Mass/Vol] 9.5 mg/dL 8.5-10.1 [facility] Serum or plasma creatinine m easurement (mass/volume)Ordered By: Kiley Correa on 05-15-2023 Creatinine [Mass/Vol] 1.05 mg/dL 0.55-1.02 [facility] Comment on above: The validity of the calculated GFR & GFRAA in patients over 70 years has not been determined. Clinical correlation is essential. Serum or plasma ferritin rickie surement (mass/volume)Ordered By: Kiley Correa on 05-15-2023 Ferritin [Mass/Vol] 91 ng/mL 8-[address] [facility] Serum or plasma iron saturat ion measurement (mass fraction)Ordered By: Kiley Correa on 05-15-2023 Iron saturation [Mass fraction] 12.5 % 15.0-55.0 [facility] Serum or plasma urea nitroge n measurement (mass/volume)Ordered By: Kiley Correa on 05-15-2023 Urea nitrogen [Mass/Vol] 18 mg/dL 7-18 [facility] Thin prep Papanicolaou smear with manual screeningOrdered By: Kiley Correa on 05-15-2023 Thin prep Papanicolaou smear with manual screening 22 U/L 15-37 [facility] Thin prep Papanicolaou smear with manual screening 7 5-15 [facility] Absolute lymphocyte countOrd ered By: Kiley Correa on 03-02-2023 Lymphocytes Auto (Unsp spec) [#/Vol] 1.60 10*3/uL 0.83-4.51 [facility] Basophil percentageOrdered B y: Kiley Correa on 03-02-2023 Basophils/100 WBC (Bld) 0.5 % 0-1 [facility] Eosinophils/100 WBC (Bld) 3.1 % 0-5 [facility] Neutrophils (Bld) [#/Vol] 3.3 10*3/uL 2.0-7.7 [facility] Neutrophils/100 WBC (Bld) 57.7 % 47-70 [facility] WBC (Bld) [#/Vol] 5.7 10*3/uL 4.4-11.0 [facility] Blood erythrocytes count (nu mber/volume)Ordered By: Kiley Correa on 03-02-2023 RBC (Bld) [#/Vol] 4.12 10*6/uL 4.2-5.[address] [facility] Blood hemoglobin measurement (mass/volume)Ordered By: Kiley Correa on 03-02-2023 Hemoglobin (Bld) [Mass/Vol] 10.9 g/dL 12.0-15.0 [facility] Blood lymphocytes/100 leukoc ytesOrdered By: Kiley Correa on 03-02-2023 Lymphocytes/100 WBC (Bld) 27.9 % 19-41 [facility] Blood monocytes/100 leukocyt esOrdered By: Kiley Correa on 03-02-2023 Monocytes/100 WBC (Bld) 10.5 % 0-10 [facility] Blood platelet mean volumeOr dered By: Kiley Correa on 03-02-2023 Platelet mean volume (Bld) [Entitic vol] 10.8 fL 6.2-12.0 [facility] Determination of erythrocyte mean corpuscular volume (MCV)Ordered By: Kiley Correa on 03-02-2023 MCV (RBC) [Entitic vol] 85.9 fL 81-99 [facility] Hematocrit Auto (Bld) [Volum e fraction]Ordered By: Kiley Correa on 03-02-2023 Hematocrit (Bld) [Volume fraction] 35.4 % 37-47 [facility] Iron measurement (mass/mass) Ordered By: Kiley Correa on 03-02-2023 Iron (Unsp spec) [Mass/Mass] 42 ug/dL 50-170 [facility] - Hematology and Cell countsOrdered By: Kiley Correa on 03-02-2023 Erythrocyte distribution width (RBC) [Entitic vol] 49.7 fL 35.1-43.9 [facility] Erythrocyte distribution width (RBC) [Ratio] 15.8 % 11.6-14.6 [facility] Immature granulocytes/100 WBC (Bld) 0.300 % 0.0-0.9 [facility] Comment on above: IG% - Immature Granu locytes (promyelocytes, myelocytes and metamyelocytes) > 1% indicates that a LEFT SHIFT is Present. MCH (RBC) [Entitic mass] 26.5 pg 27.0-32.0 [facility] Nucleated RBC/100 WBC (Bld) [Ratio] 0 % 0-5 [facility] MCHC Auto (RBC) [Mass/Vol]Or dered By: Kiley Correa on 03-02-2023 MCHC (RBC) [Mass/Vol] 30.8 g/dL 32-36 [facility] No Panel InformationOrdered By: Kiley Correa on 03-02-2023 Total Iron Binding Capacity 346 ug/dL 250-450 [facility] Platelets bldOrdered By: Thalia Correa on 03-02-2023 Platelets (Bld) [#/Vol] 305 10*3/uL 150-450 [facility] Serum or plasma ferritin rickie surement (mass/volume)Ordered By: Kliey Correa on 03-02-2023 Ferritin [Mass/Vol] 16 ng/mL 8-[address] [facility] Serum or plasma iron saturat ion measurement (mass fraction)Ordered By: Kiley Correa on 03-02-2023 Iron saturation [Mass fraction] 12.1 % 15.0-55.0 [facility] Absolute lymphocyte countOrd ered By: Dr. Mace on 02-28-2023 Lymphocytes Auto (Unsp spec) [#/Vol] 1.94 10*3/uL 0.83-4.51 [facility] Basophil percentageOrdered B y: Dr. Mace on 02-28-2023 Basophils/100 WBC (Bld) 0.5 % 0-1 [facility] Bilirubin [Mass/Vol] 0.30 mg/dL 0.20-1.00 [facility] Comment on above: For patients on eltr ombopag therapy, use of Dimension [place] TBIL is not recommended. Chloride [Moles/Vol] 104 mmol/L 98-107 [facility] Eosinophils/100 WBC (Bld) 3.0 % 0-5 [facility] Glucose [Mass/Vol] 86 mg/dL 74-106 [facility] Neutrophils (Bld) [#/Vol] 3.6 10*3/uL 2.0-7.7 [facility] Neutrophils/100 WBC (Bld) 54.4 % 47-70 [facility] Potassium [Moles/Vol] 3.9 mmol/L 3.5-5.1 [facility] Protein [Mass/Vol] 7.2 g/dL 6.4-8.2 [facility] Sodium [Moles/Vol] 135 mmol/L 136-145 [facility] WBC (Bld) [#/Vol] 6.6 10*3/uL 4.4-11.0 [facility] Blood erythrocytes count (nu mber/volume)Ordered By: Dr. Mace on 02-28-2023 RBC (Bld) [#/Vol] 4.12 10*6/uL 4.2-5.[address] [facility] Blood hemoglobin measurement (mass/volume)Ordered By: Dr. Mace on 02-28-2023 Hemoglobin (Bld) [Mass/Vol] 11.0 g/dL 12.0-15.0 [facility] Blood lymphocytes/100 leukoc ytesOrdered By: Dr. Mace on 02-28-2023 Lymphocytes/100 WBC (Bld) 29.6 % 19-41 [facility] Blood monocytes/100 leukocyt esOrdered By: Dr. Mace on 02-28-2023 Monocytes/100 WBC (Bld) 12.2 % 0-10 [facility] Blood platelet mean volumeOr dered By: Dr. Mace on 02-28-2023 Platelet mean volume (Bld) [Entitic vol] 11.9 fL 6.2-12.0 [facility] Determination of erythrocyte mean corpuscular volume (MCV)Ordered By: Dr. Mace on 02-28-2023 MCV (RBC) [Entitic vol] 90.0 fL 81-[address] [facility] Hematocrit Auto (Bld) [Volum e fraction]Ordered By: Dr. Mace on 02-28-2023 Hematocrit (Bld) [Volume fraction] 37.1 % 37-47 [facility] - Chemistry and C hemistry - challengeOrdered By: Dr. Mace on 02-28-2023 ALP [Catalytic activity/Vol] 86 U/L 45-117 [facility] ALT [Catalytic activity/Vol] 24 U/L 13-56 [facility] CO2 [Moles/Vol] 23.0 mmol/L 21.0-32.0 [facility] Globulin (S) [Mass/Vol] 3.7 g/dL 2.2-4.[address] [facility] Urea nitrogen/Creatinine [Mass ratio] 25.4 mg/mg 10-20 [facility] - Hematology and Cell countsOrdered By: Dr. Mace on 02-28-2023 Erythrocyte distribution width (RBC) [Entitic vol] 53.1 fL 35.1-43.9 [facility] Erythrocyte distribution width (RBC) [Ratio] 15.9 % 11.6-14.6 [facility] Immature granulocytes/100 WBC (Bld) 0.300 % 0.0-0.9 [facility] Comment on above: IG% - Immature Granu locytes (promyelocytes, myelocytes and metamyelocytes) > 1% indicates that a LEFT SHIFT is Present. MCH (RBC) [Entitic mass] 26.7 pg 27.0-32.0 [facility] Nucleated RBC/100 WBC (Bld) [Ratio] 0 % 0-5 [facility] MCHC Auto (RBC) [Mass/Vol]Or dered By: Dr. Mace on 02-28-2023 MCHC (RBC) [Mass/Vol] 29.6 g/dL 32-36 [facility] No Panel InformationOrdered By: Dr. Mace on 02-28-2023 Estimated GFR (MDRD) Amer 76 mL/min >60 [facility] Comment on above: GFR Calc Estimated GFR (MDRD) Non-Af Amer 63 mL/min >60 [facility] Comment on above: Non- GFR Calc Thyroid Stimulating Hormone (TSH) 1.24 uIU/mL 0.358-3.74 [facility] Vitamin D 25-Hydroxy 30.6 ng/mL [facility] Comment on above: Vitamin D 25(OH) Sta tus Range Deficiency <20 ng/mL (50nmol/L) Insufficiency 20 - 30 ng/mL (50 - 75 nmol/L) Sufficiency 30 - 100 ng/mL (75 - 250 nmol/L) Toxicity >100 ng/mL (>250 nmol/L) Platelets bldOrdered By: Dr. Mace on 02-28-2023 Platelets (Bld) [#/Vol] 319 10*3/uL 150-450 [facility] Serum or plasma albumin yolie urement (mass/volume)Ordered By: Dr. Mace on 02-28-2023 Albumin [Mass/Vol] 3.5 g/dL 3.2-5.0 [facility] Serum or plasma albumin/glob ulin mass ratioOrdered By: Dr. Mace on 02-28-2023 Albumin/Globulin [Mass ratio] 0.9 {ratio} 0.9-2.4 [facility] Serum or plasma calcium yolie urement (mass/volume)Ordered By: Dr. Mace on 02-28-2023 Calcium [Mass/Vol] 9.1 mg/dL 8.5-10.1 [facility] Serum or plasma creatinine m easurement (mass/volume)Ordered By: Dr. Mace on 02-28-2023 Creatinine [Mass/Vol] 0.90 mg/dL 0.55-1.02 [facility] Comment on above: The validity of the calculated GFR & GFRAA in patients over 70 years has not been determined. Clinical correlation is essential. Serum or plasma urea nitroge n measurement (mass/volume)Ordered By: Dr. Mace on 02-28-2023 Urea nitrogen [Mass/Vol] 23 mg/dL 7-18 [facility] Thin prep Papanicolaou smear with manual screeningOrdered By: Dr. Mace on 02-28-2023 Thin prep Papanicolaou smear with manual screening 21 U/L 15-37 [facility] Thin prep Papanicolaou smear with manual screening 8 5-15 [facility] Absolute lymphocyte countOrd ered By: Dr. Mace on 12-06-2022 Lymphocytes Auto (Unsp spec) [#/Vol] 1.68 10*3/uL 0.83-4.51 [facility] Basophil percentageOrdered B y: Dr. Mace on 12-06-2022 Basophils/100 WBC (Bld) 0.3 % 0-[address] [facility] Bilirubin [Mass/Vol] 0.50 mg/dL 0.20-1.00 [facility] Comment on above: For patients on eltr ombopag therapy, use of Dimension [place] TBIL is not recommended. Chloride [Moles/Vol] 104 mmol/L 98-107 [facility] Eosinophils/100 WBC (Bld) 2.7 % 0-5 [facility] Glucose [Mass/Vol] 100 mg/dL 74-106 [facility] Comment on above: Fasting Glucose resu lt from 100 to 125 mg/dL suggests IMPAIRED HOMEOSTASIS per A.D.A. criteria. Neutrophils (Bld) [#/Vol] 3.3 10*3/uL 2.0-7.7 [facility] Neutrophils/100 WBC (Bld) 57.2 % 47-70 [facility] Potassium [Moles/Vol] 3.8 mmol/L 3.5-5.1 [facility] Protein [Mass/Vol] 7.2 g/dL 6.4-8.2 [facility] Sodium [Moles/Vol] 137 mmol/L 136-145 [facility] WBC (Bld) [#/Vol] 5.8 10*3/uL 4.4-11.0 [facility] Blood erythrocytes count (nu mber/volume)Ordered By: Dr. Mace on 12-06-2022 RBC (Bld) [#/Vol] 3.91 10*6/uL 4.2-5.[address] [facility] Blood hemoglobin measurement (mass/volume)Ordered By: Dr. Mace on 12-06-2022 Hemoglobin (Bld) [Mass/Vol] 10.1 g/dL 12.0-15.0 [facility] Blood lymphocytes/100 leukoc ytesOrdered By: Dr. Mace on 12-06-2022 Lymphocytes/100 WBC (Bld) 28.8 % 19-41 [facility] Blood monocytes/100 leukocyt esOrdered By: Dr. Mace on 12-06-2022 Monocytes/100 WBC (Bld) 10.3 % 0-10 [facility] Blood platelet mean volumeOr dered By: Dr. Mace on 12-06-2022 Platelet mean volume (Bld) [Entitic vol] 11.0 fL 6.2-12.0 [facility] Determination of erythrocyte mean corpuscular volume (MCV)Ordered By: Dr. Mace on 12-06-2022 MCV (RBC) [Entitic vol] 85.2 fL 81-99 [facility] Hematocrit Auto (Bld) [Volum e fraction]Ordered By: Dr. Mace on 12-06-2022 Hematocrit (Bld) [Volume fraction] 33.3 % 37-47 [facility] Laboratory - Chemistry and C hemistry - challengeOrdered By: Dr. Mace on 12-06-2022 ALP [Catalytic activity/Vol] 86 U/L 45-117 [facility] ALT [Catalytic activity/Vol] 28 U/L 13-56 [facility] CO2 [Moles/Vol] 25.0 mmol/L 21.0-32.0 [facility] Globulin (S) [Mass/Vol] 3.6 g/dL 2.2-4.2 [facility] Urea nitrogen/Creatinine [Mass ratio] 25.5 mg/mg 10-20 [facility] Laboratory - Hematology and Cell countsOrdered By: Dr. Mace on 12-06-2022 Erythrocyte distribution width (RBC) [Entitic vol] 46.9 fL 35.1-43.9 [facility] Erythrocyte distribution width (RBC) [Ratio] 15.5 % 11.6-14.6 [facility] Immature granulocytes/100 WBC (Bld) 0.700 % 0.0-0.9 [facility] Comment on above: IG% - Immature Granu locytes (promyelocytes, myelocytes and metamyelocytes) > 1% indicates that a LEFT SHIFT is Present. MCH (RBC) [Entitic mass] 25.8 pg 27.0-32.0 [facility] Nucleated RBC/100 WBC (Bld) [Ratio] 0 % 0-5 [facility] MCHC Auto (RBC) [Mass/Vol]Or dered By: Dr. Mace on 12-06-2022 MCHC (RBC) [Mass/Vol] 30.3 g/dL 32-36 [facility] No Panel InformationOrdered By: Dr. Mace on 12-06-2022 Estimated GFR (MDRD) Amer 63 mL/min >60 [facility] Comment on above: GFR Calc Estimated GFR (MDRD) Non-Af Amer 52 mL/min >60 [facility] Comment on above: Non- GFR Calc Thyroid Stimulating Hormone (TSH) 1.27 uIU/mL 0.358-3.74 [facility] Vitamin D 25-Hydroxy 23.0 ng/mL [facility] Comment on above: Vitamin D 25(OH) Sta tus Range Deficiency <20 ng/mL (50nmol/L) Insufficiency 20 - 30 ng/mL (50 - 75 nmol/L) Sufficiency 30 - 100 ng/mL (75 - 250 nmol/L) Toxicity >100 ng/mL (>250 nmol/L) Platelets bldOrdered By: Dr. Mace on 12-06-2022 Platelets (Bld) [#/Vol] 372 10*3/uL 150-450 [facility] Serum or plasma albumin yolie urement (mass/volume)Ordered By: Dr. Mace on 12-06-2022 Albumin [Mass/Vol] 3.6 g/dL 3.2-5.0 [facility] Serum or plasma albumin/glob ulin mass ratioOrdered By: Dr. Mace on 12-06-2022 Albumin/Globulin [Mass ratio] 1.0 {ratio} 0.9-2.4 [facility] Serum or plasma calcium yolie urement (mass/volume)Ordered By: Dr. Mace on 12-06-2022 Calcium [Mass/Vol] 9.3 mg/dL 8.5-10.1 [facility] Serum or plasma creatinine m easurement (mass/volume)Ordered By: Dr. Mace on 12-06-2022 Creatinine [Mass/Vol] 1.06 mg/dL 0.55-1.02 [facility] Comment on above: The validity of the calculated GFR & GFRAA in patients over 70 years has not been determined. Clinical correlation is essential. Serum or plasma urea nitroge n measurement (mass/volume)Ordered By: Dr. Mace on 12-06-2022 Urea nitrogen [Mass/Vol] 27 mg/dL 7-18 [facility] Thin prep Papanicolaou smear with manual screeningOrdered By: Dr. Mace on 12-06-2022 Thin prep Papanicolaou smear with manual screening 24 U/L 15-37 [facility] Thin prep Papanicolaou smear with manual screening 8 5-15 [facility] Absolute lymphocyte countOrd ered By: Deloris Boothe on 11-28-2022 Lymphocytes Auto (Unsp spec) [#/Vol] 1.57 10*3/uL 0.83-4.51 [facility] Basophil percentageOrdered B y: Deloris Boothe on 11-28-2022 Basophils/100 WBC (Bld) 0.5 % 0-1 [facility] Chloride [Moles/Vol] 104 mmol/L 98-107 [facility] Eosinophils/100 WBC (Bld) 2.1 % 0-5 [facility] Glucose [Mass/Vol] 91 mg/dL 74-106 [facility] Neutrophils (Bld) [#/Vol] 3.7 10*3/uL 2.0-7.7 [facility] Neutrophils/100 WBC (Bld) 60.4 % 47-70 [facility] Potassium [Moles/Vol] 4.4 mmol/L 3.5-5.1 [facility] Sodium [Moles/Vol] 137 mmol/L 136-145 [facility] WBC (Bld) [#/Vol] 6.1 10*3/uL 4.4-11.0 [facility] Blood erythrocytes count (nu mber/volume)Ordered By: Deloris Boothe on 11-28-2022 RBC (Bld) [#/Vol] 4.05 10*6/uL 4.2-5.[address] [facility] Blood hemoglobin measurement (mass/volume)Ordered By: Deloris Boothe on 11-28-2022 Hemoglobin (Bld) [Mass/Vol] 10.7 g/dL 12.0-15.0 [facility] Blood lymphocytes/100 leukoc ytesOrdered By: Deloris Boothe on 11-28-2022 Lymphocytes/100 WBC (Bld) 25.6 % 19-41 [facility] Blood monocytes/100 leukocyt esOrdered By: Deloris Boothe on 11-28-2022 Monocytes/100 WBC (Bld) 11.1 % 0-10 [facility] Blood platelet mean volumeOr dered By: Deloris Boothe on 11-28-2022 Platelet mean volume (Bld) [Entitic vol] 11.0 fL 6.2-12.0 [facility] Determination of erythrocyte mean corpuscular volume (MCV)Ordered By: Deloris Boothe on 11-28-2022 MCV (RBC) [Entitic vol] 85.2 fL 81-[address] [facility] Hematocrit Auto (Bld) [Volum e fraction]Ordered By: Deloris Boothe on 11-28-2022 Hematocrit (Bld) [Volume fraction] 34.5 % 37-47 [facility] Laboratory - Chemistry and C hemistry - challengeOrdered By: Deloris Boothe on 11-28-2022 CO2 [Moles/Vol] 25.0 mmol/L 21.0-32.0 [facility] Natriuretic peptide B (Bld) [Mass/Vol] 83.3 pg/mL 0-100 [facility] Urea nitrogen/Creatinine [Mass ratio] 20.4 mg/mg 10-20 [facility] Laboratory - Hematology and Cell countsOrdered By: Deloris Boothe on 11-28-2022 Erythrocyte distribution width (RBC) [Entitic vol] 46.1 fL 35.1-43.9 [facility] Erythrocyte distribution width (RBC) [Ratio] 14.9 % 11.6-14.6 [facility] Immature granulocytes/100 WBC (Bld) 0.300 % 0.0-0.9 [facility] Comment on above: IG% - Immature Granu locytes (promyelocytes, myelocytes and metamyelocytes) > 1% indicates that a LEFT SHIFT is Present. MCH (RBC) [Entitic mass] 26.4 pg 27.0-32.0 [facility] Nucleated RBC/100 WBC (Bld) [Ratio] 0 % 0-5 [facility] MCHC Auto (RBC) [Mass/Vol]Or dered By: Deloris Boothe on 11-28-2022 MCHC (RBC) [Mass/Vol] 31.0 g/dL 32-36 [facility] No Panel InformationOrdered By: Deloris Boothe on 11-28-2022 Estimated GFR (MDRD) Amer 47 mL/min >60 [facility] Comment on above: GFR Calc Estimated GFR (MDRD) Non-Af Amer 39 mL/min >60 [facility] Comment on above: Non- GFR Calc Platelets bldOrdered By: Hiram Boothe on 11-28-2022 Platelets (Bld) [#/Vol] 362 10*3/uL 150-450 [facility] Serum or plasma calcium yolie urement (mass/volume)Ordered By: Deloris Boothe on 11-28-2022 Calcium [Mass/Vol] 9.3 mg/dL 8.5-10.1 [facility] Serum or plasma creatinine m easurement (mass/volume)Ordered By: Deloris Boothe on 11-28-2022 Creatinine [Mass/Vol] 1.37 mg/dL 0.55-1.02 [facility] Comment on above: The validity of the calculated GFR & GFRAA in patients over 70 years has not been determined. Clinical correlation is essential. Serum or plasma urea nitroge n measurement (mass/volume)Ordered By: Deloris Boothe on 11-28-2022 Urea nitrogen [Mass/Vol] 28 mg/dL 7-18 [facility] Thin prep Papanicolaou smear with manual screeningOrdered By: Deloris Boothe on 11-28-2022 Thin prep Papanicolaou smear with manual screening 8 5-15 [facility] Absolute lymphocyte countOrd ered By: Dr. Mace on 09-07-2022 Lymphocytes Auto (Unsp spec) [#/Vol] 1.66 10*3/uL 0.83-4.51 [facility] Basophil percentageOrdered B y: Dr. Mace on 09-07-2022 Basophils/100 WBC (Bld) 0.3 % 0-1 [facility] Bilirubin [Mass/Vol] 0.20 mg/dL 0.20-1.00 [facility] Comment on above: For patients on eltr ombopag therapy, use of Dimension [place] TBIL is not recommended. Chloride [Moles/Vol] 100 mmol/L 98-107 [facility] Eosinophils/100 WBC (Bld) 2.0 % 0-5 [facility] Glucose [Mass/Vol] 98 mg/dL 74-106 [facility] Neutrophils (Bld) [#/Vol] 6.1 10*3/uL 2.0-7.7 [facility] Neutrophils/100 WBC (Bld) 68.5 % 47-70 [facility] Potassium [Moles/Vol] 4.0 mmol/L 3.5-5.1 [facility] Protein [Mass/Vol] 7.9 g/dL 6.4-8.2 [facility] Sodium [Moles/Vol] 134 mmol/L 136-145 [facility] WBC (Bld) [#/Vol] 8.8 10*3/uL 4.4-11.0 [facility] Blood erythrocytes count (nu mber/volume)Ordered By: Dr. Mace on 09-07-2022 RBC (Bld) [#/Vol] 3.98 10*6/uL 4.2-5.[address] [facility] Blood hemoglobin measurement (mass/volume)Ordered By: Dr. Mace on 09-07-2022 Hemoglobin (Bld) [Mass/Vol] 10.5 g/dL 12.0-15.0 [facility] Blood lymphocytes/100 leukoc ytesOrdered By: Dr. Mace on 09-07-2022 Lymphocytes/100 WBC (Bld) 18.8 % 19-41 [facility] Blood monocytes/100 leukocyt esOrdered By: Dr. Mace on 09-07-2022 Monocytes/100 WBC (Bld) 8.1 % 0-10 [facility] Blood platelet mean volumeOr dered By: Dr. Mace on 09-07-2022 Platelet mean volume (Bld) [Entitic vol] 10.4 fL 6.2-12.0 [facility] Determination of erythrocyte mean corpuscular volume (MCV)Ordered By: Dr. Mace on 09-07-2022 MCV (RBC) [Entitic vol] 86.2 fL 81-[address] [facility] Hematocrit Auto (Bld) [Volum e fraction]Ordered By: Dr. Mace on 09-07-2022 Hematocrit (Bld) [Volume fraction] 34.3 % 37-47 [facility] Laboratory - Chemistry and C hemistry - challengeOrdered By: Dr. Mace on 09-07-2022 ALP [Catalytic activity/Vol] 113 U/L 45-117 [facility] ALT [Catalytic activity/Vol] 21 U/L 13-56 [facility] CO2 [Moles/Vol] 25.0 mmol/L 21.0-32.0 [facility] Globulin (S) [Mass/Vol] 4.8 g/dL 2.2-4.[address] [facility] Urea nitrogen/Creatinine [Mass ratio] 20.1 mg/mg 10-20 [facility] Laboratory - Hematology and Cell countsOrdered By: Dr. Mace on 09-07-2022 Erythrocyte distribution width (RBC) [Entitic vol] 49.9 fL 35.1-43.9 [facility] Erythrocyte distribution width (RBC) [Ratio] 15.7 % 11.6-14.6 [facility] Immature granulocytes/100 WBC (Bld) 2.300 % 0.0-0.9 [facility] Comment on above: IG% - Immature Granu locytes (promyelocytes, myelocytes and metamyelocytes) > 1% indicates that a LEFT SHIFT is Present. MCH (RBC) [Entitic mass] 26.4 pg 27.0-32.0 [facility] Nucleated RBC/100 WBC (Bld) [Ratio] 0 % 0-5 [facility] MCHC Auto (RBC) [Mass/Vol]Or dered By: Dr. Mace on 09-07-2022 MCHC (RBC) [Mass/Vol] 30.6 g/dL 32-36 [facility] No Panel InformationOrdered By: Dr. Mace on 09-07-2022 Estimated GFR (MDRD) Amer 68 mL/min >60 [facility] Comment on above: GFR Calc Estimated GFR (MDRD) Non-Af Amer 56 mL/min >60 [facility] Comment on above: Non- GFR Calc Thyroid Stimulating Hormone (TSH) 0.98 uIU/mL 0.358-3.74 [facility] Vitamin D 25-Hydroxy 28.8 ng/mL [facility] Comment on above: Vitamin D 25(OH) Sta tus Range Deficiency <20 ng/mL (50nmol/L) Insufficiency 20 - 30 ng/mL (50 - 75 nmol/L) Sufficiency 30 - 100 ng/mL (75 - 250 nmol/L) Toxicity >100 ng/mL (>250 nmol/L) Platelets bldOrdered By: Dr. Mace on 09-07-2022 Platelets (Bld) [#/Vol] 588 10*3/uL 150-450 [facility] Serum or plasma albumin yolie urement (mass/volume)Ordered By: Dr. Mace on 09-07-2022 Albumin [Mass/Vol] 3.1 g/dL 3.2-5.0 [facility] Serum or plasma albumin/glob ulin mass ratioOrdered By: Dr. Mace on 09-07-2022 Albumin/Globulin [Mass ratio] 0.6 {ratio} 0.9-2.4 [facility] Serum or plasma calcium yolie urement (mass/volume)Ordered By: Dr. Mace on 09-07-2022 Calcium [Mass/Vol] 9.7 mg/dL 8.5-10.1 [facility] Serum or plasma creatinine m easurement (mass/volume)Ordered By: Dr. Mace on 09-07-2022 Creatinine [Mass/Vol] 1.00 mg/dL 0.55-1.02 [facility] Comment on above: The validity of the calculated GFR & GFRAA in patients over 70 years has not been determined. Clinical correlation is essential. Serum or plasma urea nitroge n measurement (mass/volume)Ordered By: Dr. Mace on 09-07-2022 Urea nitrogen [Mass/Vol] 20 mg/dL 7-18 [facility] Thin prep Papanicolaou smear with manual screeningOrdered By: Dr. Mace on 09-07-2022 Thin prep Papanicolaou smear with manual screening 24 U/L 15-37 [facility] Thin prep Papanicolaou smear with manual screening 9 5-15 [facility] Absolute lymphocyte counton 05-12-2022 Lymphocytes Auto (Unsp spec) [#/Vol] 1.44 10*3/uL 0.83-4.51 [facility] Work Phone: Basophil percentageon 2021 Basophils/100 WBC (Bld) 0.5 % 0-[address] [facility] Work Phone: Bilirubin [Mass/Vol] 0.10 mg/dL 0.20-1.00 [facility] Work Phone: Comment on above: For patients on eltr ombopag therapy, use of Dimension [place] TBIL is not recommended. Chloride [Moles/Vol] 101 mmol/L 98-107 [facility] Work Phone: Eosinophils/100 WBC (Bld) 2.2 % 0-5 [facility] Work Phone: Glucose [Mass/Vol] 120 mg/dL 74-106 [facility] Work Phone: Comment on above: Fasting Glucose resu lt from 100 to 125 mg/dL suggests IMPAIRED HOMEOSTASIS per A.D.A. criteria. Neutrophils (Bld) [#/Vol] 5.5 10*3/uL 2.0-7.7 [facility] Work Phone: Neutrophils/100 WBC (Bld) 68.5 % 47-70 [facility] Work Phone: Potassium [Moles/Vol] 3.8 mmol/L 3.5-5.1 [facility] Work Phone: Comment on above: Slight Hemolysis, Re sult may be falsely increased. Protein [Mass/Vol] 7.7 g/dL 6.4-8.2 [facility] Work Phone: Sodium [Moles/Vol] 133 mmol/L 136-145 [facility] Work Phone: [phone] WBC (Bld) [#/Vol] 8.0 10*3/uL 4.4-11.0 [facility] Work Phone: Blood erythrocytes count (nu mber/volume)on 05-12-2022 RBC (Bld) [#/Vol] 3.99 10*6/uL [facility].2-[facility] Blood hemoglobin measurement (mass/volume)on 05-12-2022 Hemoglobin (Bld) [Mass/Vol] 10.6 g/dL 12.0-15.0 [facility] Work Phone: [phone] Blood lymphocytes/100 leukoc yteson 05-12-2022 Lymphocytes/100 WBC (Bld) 18.0 % 19-41 [facility] Work Phone: [phone] Blood monocytes/100 leukocyt eson 05-12-2022 Monocytes/100 WBC (Bld) 10.4 % 0-10 [facility] Work Phone: [phone] Blood platelet mean volumeon 05-12-2022 Platelet mean volume (Bld) [Entitic vol] 10.2 fL 6.2-12.0 [facility] Work Phone: [phone] Determination of erythrocyte mean corpuscular volume (MCV)on 05-12-2022 MCV (RBC) [Entitic vol] 85.7 fL 81-99 [facility] Work Phone: Hematocrit Auto (Bld) [Volum e fraction]on 05-12-2022 Hematocrit (Bld) [Volume fraction] 34.2 % 37-47 [facility] Work Phone: Laboratory - Chemistry and C hemistry - challengeon 05-12-2022 ALP [Catalytic activity/Vol] 105 U/L 45-117 [facility] Work Phone: ALT [Catalytic activity/Vol] 22 U/L 13-56 [facility] Work Phone: [phone] CO2 [Moles/Vol] 25.0 mmol/L 21.0-32.0 [facility] Work Phone: [phone] Globulin (S) [Mass/Vol] 4.5 g/dL 2.2-4.2 [facility] Work Phone: [phone] Urea nitrogen/Creatinine [Mass ratio] 20.4 mg/mg 10-20 [facility] Work Phone: [phone] Laboratory - Hematology and Cell countson 05-12-2022 Erythrocyte distribution width (RBC) [Entitic vol] 49.8 fL 35.1-43.9 [facility] Work Phone: [phone] Erythrocyte distribution width (RBC) [Ratio] 15.9 % 11.6-14.6 [facility] Work Phone: [phone] Immature granulocytes/100 WBC (Bld) 0.400 % 0.0-0.9 [facility] Work Phone: [phone] Comment on above: IG% - Immature Granu locytes (promyelocytes, myelocytes and metamyelocytes) > 1% indicates that a LEFT SHIFT is Present. MCH (RBC) [Entitic mass] 26.6 pg 27.0-32.0 [facility] Work Phone: [phone] Nucleated RBC/100 WBC (Bld) [Ratio] 0 % 0-5 [facility] Work Phone: [phone] MCHC Auto (RBC) [Mass/Vol]on 05-12-2022 MCHC (RBC) [Mass/Vol] 31.0 g/dL 32-36 [facility] Work Phone: No Panel Informationon 05-12 Estimated GFR (MDRD) Amer 69 mL/min >60 [facility] Work Phone: [phone] Comment on above: GFR Calc Estimated GFR (MDRD) Non-Af Amer 57 mL/min >60 [facility] Work Phone: [phone] Comment on above: Non- GFR Calc Thyroid Stimulating Hormone (TSH) 0.77 uIU/mL 0.358-3.74 [facility] Work Phone: Vitamin D 25-Hydroxy 30.4 ng/mL [facility] Work Phone: Comment on above: Vitamin D 25(OH) Sta tus Range Deficiency <20 ng/mL (50nmol/L) Insufficiency 20 - 30 ng/mL (50 - 75 nmol/L) Sufficiency 30 - 100 ng/mL (75 - 250 nmol/L) Toxicity >100 ng/mL (>250 nmol/L) Platelets bldon 05-12-2022 Platelets (Bld) [#/Vol] 488 10*3/uL 150-450 [facility] Work Phone: Serum or plasma albumin yolie urement (mass/volume)on 05-12-2022 Albumin [Mass/Vol] 3.2 g/dL 3.2-5.0 [facility] Work Phone: Serum or plasma albumin/glob ulin mass ratioon 05-12-2022 Albumin/Globulin [Mass ratio] 0.7 {ratio} 0.9-2.4 [facility] Work Phone: Serum or plasma calcium yolie urement (mass/volume)on 05-12-2022 Calcium [Mass/Vol] 9.4 mg/dL 8.5-10.1 [facility] Work Phone: Serum or plasma creatinine m easurement (mass/volume)on 05-12-2022 Creatinine [Mass/Vol] 0.98 mg/dL 0.55-1.02 [facility] Work Phone: Comment on above: The validity of the calculated GFR & GFRAA in patients over 70 years has not been determined. Clinical correlation is essential. Serum or plasma urea nitroge n measurement (mass/volume)on 05-12-2022 Urea nitrogen [Mass/Vol] 20 mg/dL 7-18 [facility] Work Phone: Thin prep Papanicolaou smear with manual screeningon 05-12-2022 Thin prep Papanicolaou smear with manual screening 14 U/L 15-37 [facility] Work Phone: Comment on above: Slight Hemolysis, Re sult may be falsely increased. Thin prep Papanicolaou smear with manual screening 7 5-15 [facility] Work Phone: Absolute lymphocyte counton 02-08-2022 Lymphocytes Auto (Unsp spec) [#/Vol] 1.30 10*3/uL 0.83-4.51 [facility] Work Phone: Basophil percentageon 2021 Basophils/100 WBC (Bld) 0.4 % 0-1 [facility] Work Phone: Eosinophils/100 WBC (Bld) 2.0 % 0-5 [facility] Work Phone: Neutrophils (Bld) [#/Vol] 6.0 10*3/uL 2.0-7.7 [facility] Work Phone: Neutrophils/100 WBC (Bld) 71.8 % 47-70 [facility] Work Phone: WBC (Bld) [#/Vol] 8.3 10*3/uL 4.4-11.0 [facility] Work Phone: Blood erythrocytes count (nu mber/volume)on 02-08-2022 RBC (Bld) [#/Vol] 3.90 10*6/uL 4.2-5.[address] [facility] Work Phone: Blood hemoglobin measurement (mass/volume)on 02-08-2022 Hemoglobin (Bld) [Mass/Vol] 9.6 g/dL 12.0-15.0 [facility] Work Phone: Blood lymphocytes/100 leukoc yteson 02-08-2022 Lymphocytes/100 WBC (Bld) 15.6 % 19-41 [facility] Work Phone: Blood monocytes/100 leukocyt eson 02-08-2022 Monocytes/100 WBC (Bld) 9.7 % 0-10 [facility] Work Phone: Blood platelet mean volumeon 02-08-2022 Platelet mean volume (Bld) [Entitic vol] 10.8 fL 6.2-12.0 [facility] Work Phone: [phone] Determination of erythrocyte mean corpuscular volume (MCV)on 02-08-2022 MCV (RBC) [Entitic vol] 78.7 fL 81-99 [facility] Work Phone: [phone] Hematocrit Auto (Bld) [Volum e fraction]on 02-08-2022 Hematocrit (Bld) [Volume fraction] 30.7 % 37-47 [facility] Work Phone: [phone] Laboratory - Hematology and Cell countson 02-08-2022 Erythrocyte distribution width (RBC) [Entitic vol] 54.4 fL 35.1-43.9 [facility] Work Phone: [phone] Erythrocyte distribution width (RBC) [Ratio] 19.1 % 11.6-14.6 [facility] Work Phone: [phone] Immature granulocytes/100 WBC (Bld) 0.500 % 0.0-0.9 [facility] Work Phone: [phone] Comment on above: IG% - Immature Granu locytes (promyelocytes, myelocytes and metamyelocytes) > 1% indicates that a LEFT SHIFT is Present. MCH (RBC) [Entitic mass] 24.6 pg 27.0-32.0 [facility] Work Phone: [phone] Nucleated RBC/100 WBC (Bld) [Ratio] 0 % 0-5 [facility] Work Phone: [phone] MCHC Auto (RBC) [Mass/Vol]on 02-08-2022 MCHC (RBC) [Mass/Vol] 31.3 g/dL 32-36 [facility] Work Phone: [phone] No Panel Informationon 02-08 Homocysteine 11.7 umol/L 3.2-10.7 [facility] Work Phone: [phone] Platelets bldon 02-08-2022 Platelets (Bld) [#/Vol] 384 10*3/uL 150-450 [facility] Work Phone: [phone] Serum or plasma methylmalona te measurement (moles/volume)on 02-08-2022 Methylmalonate [Moles/Vol] 362 nmol/L 0-378 [facility] Work Phone: [phone] Comment on above: Performed at: [facility] [address] [id number] Director: Desmond Jose MD, Phone: [phone] Absolute lymphocyte counton 01-31-2022 Lymphocytes Auto (Unsp spec) [#/Vol] 1.53 10*3/uL 0.83-4.51 [facility] Work Phone: [phone] Basophil percentageon 2021 Basophils/100 WBC (Bld) 0.3 % 0-1 [facility] Work Phone: [phone] Eosinophils/100 WBC (Bld) 2.1 % 0-5 [facility] Work Phone: [phone] Neutrophils (Bld) [#/Vol] 4.8 10*3/uL 2.0-7.7 [facility] Work Phone: [phone] Neutrophils/100 WBC (Bld) 65.8 % 47-70 [facility] Work Phone: [phone] WBC (Bld) [#/Vol] 7.3 10*3/uL 4.4-11.0 [facility] Work Phone: [phone] Blood erythrocytes count (nu mber/volume)on 01-31-2022 RBC (Bld) [#/Vol] 3.69 10*6/uL 4.2-5.[address] [facility] Work Phone: [phone] Blood hemoglobin measurement (mass/volume)on 01-31-2022 Hemoglobin (Bld) [Mass/Vol] 9.0 g/dL 12.0-15.0 [facility] Work Phone: [phone] Blood lymphocytes/100 leukoc yteson 01-31-2022 Lymphocytes/100 WBC (Bld) 21.0 % 19-41 [facility] Work Phone: [phone] Blood monocytes/100 leukocyt eson 01-31-2022 Monocytes/100 WBC (Bld) 10.1 % 0-10 [facility] Work Phone: [phone] Blood platelet mean volumeon 01-31-2022 Platelet mean volume (Bld) [Entitic vol] 10.5 fL 6.2-12.0 [facility] Work Phone: [phone] Determination of erythrocyte mean corpuscular volume (MCV)on 01-31-2022 MCV (RBC) [Entitic vol] 78.9 fL 81-99 [facility] Work Phone: [phone] Hematocrit Auto (Bld) [Volum e fraction]on 01-31-2022 Hematocrit (Bld) [Volume fraction] 29.1 % 37-47 [facility] Work Phone: [phone] Hemoglobin in reticulocytes (mass per reticulocyte)on 01-31-2022 Hemoglobin (Reticulocytes) [Entitic mass] 28.5 pg 30-35 [facility] Work Phone: [phone] Iron measurement (mass/mass) on 01-31-2022 Iron (Unsp spec) [Mass/Mass] 27 ug/dL 50-170 [facility] Work Phone: [phone] Laboratory - Chemistry and C hemistry - challengeon 01-31-2022 Cobalamin (Vitamin B12) [Mass/Vol] 339 pg/mL 211-911 [facility] Work Phone: [phone] Laboratory - Hematology and Cell countson 01-31-2022 Erythrocyte distribution width (RBC) [Entitic vol] 53.3 fL 35.1-43.9 [facility] Work Phone: [phone] Erythrocyte distribution width (RBC) [Ratio] 18.7 % 11.6-14.6 [facility] [facility] Work Phone: [phone] Immature granulocytes/100 WBC (Bld) 0.700 % 0.0-0.9 [facility] Work Phone: [phone] Comment on above: IG% - Immature Granu locytes (promyelocytes, myelocytes and metamyelocytes) > 1% indicates that a LEFT SHIFT is Present. MCH (RBC) [Entitic mass] 24.4 pg 27.0-32.0 [facility] Work Phone: Nucleated RBC/100 WBC (Bld) [Ratio] 0 % 0-5 [facility] Work Phone: MCHC Auto (RBC) [Mass/Vol]on 01-31-2022 MCHC (RBC) [Mass/Vol] 30.9 g/dL 32-36 [facility] Work Phone: No Panel Informationon 01-31 Immature Reticulocyte Fraction 29.20 % 3.00-15.90 [facility] Work Phone: Reticulocyte Count 2.06 % 0.5-1.5 [facility] Work Phone: Total Iron Binding Capacity 381 ug/dL 250-450 [facility] Work Phone: [phone] Platelets bldon 01-31-2022 Platelets (Bld) [#/Vol] 369 10*3/uL 150-450 [facility] Work Phone: Serum or plasma ferritin rickie surement (mass/volume)on 01-31-2022 Ferritin [Mass/Vol] 38 ng/mL 8-[address] [facility] Work Phone: Serum or plasma folate measu rement (mass/volume)on 01-31-2022 Folate [Mass/Vol] 11.80 ng/mL 3.1-55.4 [facility] Work Phone: Serum or plasma iron saturat ion measurement (mass fraction)on 01-31-2022 Iron saturation [Mass fraction] 7.1 % 15.0-55.0 [facility] Work Phone: Absolute lymphocyte counton 2022 Lymphocytes Auto (Unsp spec) [#/Vol] 1.33 10*3/uL 0.83-4.51 [facility] Work Phone: Basophil percentageon 2021 Basophils/100 WBC (Bld) 0.1 % 0-1 [facility] Work Phone: Chloride [Moles/Vol] 102 mmol/L 98-107 [facility] Work Phone: Eosinophils/100 WBC (Bld) 0.6 % 0-5 [facility] Work Phone: Glucose [Mass/Vol] 99 mg/dL 74-106 [facility] Work Phone: Neutrophils (Bld) [#/Vol] 5.7 10*3/uL 2.0-7.7 [facility] Work Phone: Neutrophils/100 WBC (Bld) 71.7 % 47-70 [facility] Work Phone: Potassium [Moles/Vol] 3.9 mmol/L 3.5-5.1 [facility]: Sodium [Moles/Vol] 135 mmol/L 136-145 [facility] Work Phone: WBC (Bld) [#/Vol] 7.9 10*3/uL 4.4-11.0 [facility] Work Phone: Blood erythrocytes count (nu mber/volume)on 2022 RBC (Bld) [#/Vol] 4.03 10*6/uL 4.2-5.[address] [facility] Work Phone: Blood hemoglobin measurement (mass/volume)on 2022 Hemoglobin (Bld) [Mass/Vol] 9.8 g/dL 12.0-15.0 [facility] Work Phone: Blood lymphocytes/100 leukoc yteson 2022 Lymphocytes/100 WBC (Bld) 16.8 % 19-41 [facility] Work Phone: Blood monocytes/100 leukocyt eson 2022 Monocytes/100 WBC (Bld) 10.4 % 0-10 [facility] Work Phone: Blood platelet mean volumeon 2022 Platelet mean volume (Bld) [Entitic vol] 10.4 fL 6.2-12.0 [facility] Work Phone: Determination of erythrocyte mean corpuscular volume (MCV)on 2022 MCV (RBC) [Entitic vol] 79.7 fL 81-99 [facility] Work Phone: [phone] Hematocrit Auto (Bld) [Volum e fraction]on 2022 Hematocrit (Bld) [Volume fraction] 32.1 % 37-47 [facility] Work Phone: [phone] Laboratory - Chemistry and C hemistry - challengeon 2022 CO2 [Moles/Vol] 24.0 mmol/L 21.0-32.0 [facility] Work Phone: [phone] Urea nitrogen/Creatinine [Mass ratio] 23.6 mg/mg 10-20 [facility] Work Phone: [phone] Laboratory - Hematology and Cell countson 2022 Erythrocyte distribution width (RBC) [Entitic vol] 53.1 fL 35.1-43.9 [facility] Work Phone: [phone] Erythrocyte distribution width (RBC) [Ratio] 18.4 % 11.6-14.6 [facility] Work Phone: [phone] Immature granulocytes/100 WBC (Bld) 0.400 % 0.0-0.9 [facility] Work Phone: [phone] Comment on above: IG% - Immature Granu locytes (promyelocytes, myelocytes and metamyelocytes) > 1% indicates that a LEFT SHIFT is Present. MCH (RBC) [Entitic mass] 24.3 pg 27.0-32.0 [facility] Work Phone: [phone] Nucleated RBC/100 WBC (Bld) [Ratio] 0 % 0-5 [facility] Work Phone: [phone] MCHC Auto (RBC) [Mass/Vol]on 2022 MCHC (RBC) [Mass/Vol] 30.5 g/dL 32-36 [facility] Work Phone: [phone] No Panel Informationon 01-25 Estimated GFR (MDRD) Amer 61 mL/min >60 [facility] Work Phone: Comment on above: GFR Calc Estimated GFR (MDRD) Non-Af Amer 50 mL/min >60 [facility] Work Phone: Comment on above: Non- GFR Calc Platelets bldon 2022 Platelets (Bld) [#/Vol] 395 10*3/uL 150-450 [facility] Work Phone: Serum or plasma calcium yolie urement (mass/volume)on 2022 Calcium [Mass/Vol] 9.7 mg/dL 8.5-10.1 [facility] Work Phone: Serum or plasma creatinine m easurement (mass/volume)on 2022 Creatinine [Mass/Vol] 1.10 mg/dL 0.55-1.02 [facility] Work Phone: Comment on above: The validity of the calculated GFR & GFRAA in patients over 70 years has not been determined. Clinical correlation is essential. Serum or plasma urea nitroge n measurement (mass/volume)on 2022 Urea nitrogen [Mass/Vol] 26 mg/dL 7-18 [facility] Work Phone: Thin prep Papanicolaou smear with manual screeningon 2022 Thin prep Papanicolaou smear with manual screening 9 5-15 [facility] Work Phone: Vital Signs Date Time Vital Sign Value Performing Clinician Faci jessiey 07-01-2025 16:34-0400 Body height 162.[address] David Mace MD Work Phone: [facility] 07-01-2025 16:34-0400 Body mass index (BMI) [Ratio] 27.5 kg/m2 Dr. David Mace MD Work Phone: [facility] 07-01-2025 16:34-0400 Body weight 72.[address] David Mace MD Work Phone: [facility] 07-01-2025 16:00-0400 Diastolic blood pressure 73 mm[Hg] Dr. David Mace MD Work Phone: [phone] [place] [address] 07-01-2025 16:00-0400 Heart rate 65 /min Dr. David Mace MD Work Phone: [facility] 07-01-2025 16:00-0400 Respiratory rate 20 /min Dr. David Mace MD Work Phone: [facility] 07-01-2025 16:00-0400 SaO2% (BldA) [Mass fraction] 96 % Dr. David Mace MD Work Phone: [facility] 07-01-2025 16:00-0400 Systolic blood pressure 149 mm[Hg] Dr. David Mace MD Work Phone: [phone] [place] [address] 07-01-2025 14:49-0400 Body temperature 97.9 [degF] Dr. David Mace MD Work Phone: [phone] [place] [address] 03-02-2023 14:18-0400 Body height 162.[address] David Mace Work Phone: [phone])[phone] [place] [address] 03-02-2023 14:18-0400 Body mass index (BMI) [Ratio] 28.3 kg/m2 Dr. David Mace Work Phone: [phone])[phone] [place] [address] 03-02-2023 14:18-0400 Body weight 74.[address] David Mace Work Phone: [facility] 03-02-2023 14:18-0400 Diastolic blood pressure 63 mm[Hg] Dr. David Mace Work Phone: [facility] 03-02-2023 14:18-0400 Heart rate 72 /min Dr. David Mace Work Phone: [facility] 03-02-2023 14:18-0400 SaO2% (BldA) [Mass fraction] 95 % Dr. David Mace Work Phone: [facility] 03-02-2023 14:18-0400 Systolic blood pressure 97 mm[Hg] Dr. David Mace Work Phone: [facility] 02-28-2023 12:56-0400 Body mass index (BMI) [Ratio] 28.5 kg/m2 Dr. David Mace Work Phone: [facility] 02-28-2023 12:56-0400 Body weight 75.[address] David Mace Work Phone: [facility] 02-28-2023 12:56-0400 Diastolic blood pressure 73 mm[Hg] Dr. aDvid Mace Work Phone: [phone])855-529731 [place] [address] 02-28-2023 12:56-0400 Heart rate 64 /min Dr. David Mace Work Phone: [phone] [address] 02-28-2023 12:56-0400 Respiratory rate 18 /min Dr. David Mace Work Phone: [phone] [place] [address] 02-28-2023 12:56-0400 SaO2% (BldA) [Mass fraction] 97 % Dr. David Mace Work Phone: [phone])[phone] [place] [address] 02-28-2023 12:56-0400 Systolic blood pressure 118 mm[Hg] Dr. David Mace Work Phone: [phone] [address] 11-28-2022 13:32-0500 Body height 162.[address] David Mace Work Phone: [phone])[phone] [place] [address] 11-28-2022 13:32-0500 Body mass index (BMI) [Ratio] 27.9 kg/m2 Dr. David Mace Work Phone: [phone])[phone] [place] [address] 11-28-2022 13:32-0500 Body weight 73.[address] David Mace Work Phone: [facility] 11-28-2022 13:32-0500 Diastolic blood pressure 65 mm[Hg] Dr. David Mace Work Phone: [phone] [place] [address] 11-28-2022 13:32-0500 Heart rate 71 /min Dr. David Mace Work Phone: [facility] 11-28-2022 13:32-0500 Respiratory rate 16 /min Dr. David Mace Work Phone: [facility] 11-28-2022 13:32-0500 Systolic blood pressure 115 mm[Hg] Dr. David Mace Work Phone: [facility] 06-09-2022 10:47-0400 Body height 162.[address] David Mace Work Phone: [facility] Work Phone: 06-09-2022 10:47-0400 Body mass index (BMI) [Ratio] 26.9 kg/m2 Dr. David Mace Work Phone: [facility] Work Phone: 06-09-2022 10:47-0400 Body weight 71.[address] David Maec Work Phone: [facility] Work Phone: 06-09-2022 10:47-0400 Diastolic blood pressure 80 mm[Hg] Dr. David Mace Work Phone: [facility] Work Phone: 06-09-2022 10:47-0400 Heart rate 60 /min Dr. David Mace Work Phone: [facility] Work Phone: 06-09-2022 10:47-0400 Respiratory rate 16 /min Dr. David Mace Work Phone: [facility] Work Phone: 06-09-2022 10:47-0400 SaO2% (BldA) [Mass fraction] 98 % Dr. David Mace Work Phone: [facility] Work Phone: 06-09-2022 10:47-0400 Systolic blood pressure 120 mm[Hg] Dr. David Mace Work Phone: [facility] Work Phone: 02-07-2022 07:28-0400 Body height 162.[address] David Mace Work Phone: [facility] Work Phone: 02-07-2022 07:28-0400 Body weight 72.[address] David Mace Work Phone: [facility] Work Phone: 02-04-2022 07:12-0400 Body mass index (BMI) [Ratio] 27.3 kg/m2 Dr. David Mace Work Phone: [facility] Work Phone: 2022 09:26-0500 Body mass index (BMI) [Ratio] 27.3 kg/m2 Dr. David Mace Work Phone: [facility] Work Phone: 2022 09:26-0500 Body weight 72.[address] David Mace Work Phone: [facility] Work Phone: 2022 09:26-0500 Diastolic blood pressure 63 mm[Hg] Dr. David Mace Work Phone: [facility] Work Phone: 2022 09:26-0500 Heart rate 84 /min Dr. David Mace Work Phone: [facility] Work Phone: 2022 09:26-0500 Respiratory rate 16 /min Dr. David Mace Work Phone: [facility] Work Phone: 2022 09:26-0500 SaO2% (BldA) [Mass fraction] 98 % Dr. David Mace Work Phone: [facility] Work Phone: 2022 09:26-0500 Systolic blood pressure 111 mm[Hg] Dr. David Mace Work Phone: [facility] Work Phone: 2022 08:26-0500 Body mass index (BMI) [Ratio] 27.3 kg/m2 Dr. David Mace Work Phone: [facility] Work Phone: 2022 08:26-0500 Body weight 72.[address] David Mace Work Phone: [facility] Work Phone: 2022 08:26-0500 Diastolic blood pressure 63 mm[Hg] Dr. David Mace Work Phone: [facility] Work Phone: 2022 08:26-0500 Heart rate 84 /min Dr. David Mace Work Phone: [facility] Work Phone: 2022 08:26-0500 Respiratory rate 16 /min Dr. David Mace Work Phone: [facility] Work Phone: 2022 08:26-0500 SaO2% (BldA) [Mass fraction] 98 % Dr. David Mace Work Phone: [facility] Work Phone: 2022 08:26-0500 Systolic blood pressure 111 mm[Hg] Dr. Davdi Mace Work Phone: [facility] Work Phone: Encounters Encounter Date Encounter Type Care Provider Facility Start: 07-01-2025 Evaluation and management of inpatient Dr. Nallely Fischer MD -Intensive Care Unit Work Phone: Start: 07-01-2025 Non-patient / Non-visit Dr. Elver Dickerson MD -[facility] Start: 05-30-2025 End: 05-30-[address] David Mace MD Work Phone: -Laboratory Phy Office 3rd Flr Start: 05-30-2025 End: 05-30-[address] David Mace MD -Laboratory Phy Office 3rd Flr Start: 05-30-2025 End: 05-30-2025 ambulatory David Mace Facility:[facility] Start: 11-26-2024 End: 11-26-2024 ambulatory Deangelo Dhillon Facility:[facility] Start: 11-26-2024 End: 11-26-2024 ambulatory David Mace Facility:[facility] Start: 11-27-2023 [facility]: Start: 11-23-2023 End: 11-23-2023 ambulatory [facility] Work Phone: Start: 11-23-2023 End: 11-23-2023 Patient encounter procedure [facility]-Laboratory, Phy Office 3rd Flr Start: 05-15-2023 End: 05-15-[address] David Mace Work Phone: [facility] Work Phone: Start: 05-15-2023 End: 05-15-[address] [facility] Start: 03-03-2023 Non-patient / Non-visit Dr. David Mace Work Phone: [facility] Start: 03-03-2023 End: 03-03-[address] David Mace Work Phone: [facility]-Cardiovascular Services Start: 03-02-2023 End: 03-02-[address] David Mace Work Phone: [facility] Gastroenterology Start: 02-28-2023 End: 02-28-[address] David Mace Work Phone: [facility] Work Phone: Start: 02-28-2023 End: 02-28-[address] David Mace Work Phone: [facility] Start: 12-06-2022 End: 12-06-[address] David Mace Work Phone: [facility] Work Phone: Start: 12-06-2022 End: 12-06-[address] David Mace [facility] Start: 12-05-2022 Non-patient / Non-visit Dr. David Mace Work Phone: [facility] Start: 12-05-2022 End: 12-05-[address] David Mace Work Phone: [facility] Work Phone: Start: 12-05-2022 End: 12-05-[address] [facility]ace [facility] Start: 11-28-2022 End: 11-28-[address] David Mace Work Phone: [facility] Work Phone: Start: 11-28-2022 End: 11-28-[address] David Mace Work Phone: [facility] Start: 09-07-2022 End: 09-07-[address] David Mace Work Phone: [facility] Work Phone: Start: 09-07-2022 End: 09-07-[address] David Mace [facility] Start: 06-09-2022 End: 06-09-[address] David Mace Work Phone: [facility] Start: 05-12-2022 End: 05-12-[address] David Mace [facility] Start: 02-08-2022 End: 02-08-[address] David Mace Work Phone: [facility]-Laboratory, Phy Office 3rd Flr Start: 02-07-2022 End: 02-07-2022 Admission to same day surgery center Dr. 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 David Mace Work Phone: [facility]-Laboratory, Phy Office 3rd Flr Start: 2022 End: [address] David Mace Work Phone: [facility]-Radiology, [facility] Start: 01-21-[address] David pacheco Work Phone: [facility]-Physical Therapy Start: 12-22-2021 End: 12-22-[address] David Mace [facility] Phone[facility] Procedures Date Procedure Procedure Detail Performing Clinician Start: 07-01-[address] David Mace MD Work Phone: Start: 07-01-2025 Plain chest X-ray Dr. Young Mace MD Work Phone: Start: 05-30-2025 Vitamin D, 25-hydrox y measurement Dr. David Mace MD Work Phone: Comment on above: Vitamin D StatusDefi ciency: <20 ng/mL (50nmol/L)Insufficiency: 20-30 ng/mL (50-75 nmol/L)Sufficiency: 30-100 ng/mL (75-250 nmol/L)Toxicity: >100 ng/mL (>250 nmol/L) Start: 11-27-2023 SARS-CoV-2, Influenz a & RSV (PCR) Start: 2022 Plain chest X-ray Dr. Young Mace Work Phone: Start: [address] Leo Mace Work Phone: Start: 2022 Radiologic examinati on of knee Dr. David Mace Work Phone: Start: 12-22-2021 X-ray of lumbar spin e, two or three views Dr. David Mace Work Phone: History of cataract extraction Hx of cataract surgery Dr. David Mace Work Phone: Comment on above: LEFT Plan of Treatment Date Care Activity Detail Author Start: 07-02-2025 Thyroid stimulating hormone measurement [facility] Start: 07-01-2025 Assessment of risk o f venous thromboembolism [facility] Start: 07-01-2025 Continuous pulse oximetry [facility] Start: 07-01-2025 Inhalation therapy procedure [facility] Start: 07-01-2025 Insertion of cathete r into peripheral vein [facility] Start: 07-01-2025 Measuring intake and output [facility] Start: 07-01-2025 Providing care accor ding to standard [facility] Start: 07-01-2025 Referral to service [facility] Start: 07-01-2025 Vital signs measurements [facility] Start: 07-01-2025 End: 07-01-2025 [facility] Start: 07-01-2025 Verification routine [facility] Start: 07-01-2025 Admission procedure [facility] Start: 07-01-2025 End: 07-01-2025 [facility] Anion gap in Serum or Plasma [facility] BUN/Creatinine ratio [facility] Calcium [Mass/volume ] in Serum or Plasma [facility] Carbon dioxide, tota l [Moles/volume] in Central venous blood [facility] Catheterization of left heart [facility] Work Phone: Creatinine [Mass/vol ume] in Serum or Plasma [facility] Erythrocyte mean cor puscular volume determination [facility] Glucose [Mass/volume ] in Serum or Plasma [facility] Hematocrit [Volume F raction] of Blood [facility] Hemoglobin [Mass/volume] in Blood [facility] Leukocytes [#/volume] in Blood [facility] Magnesium measurement [facility] Mean corpuscular hem oglobin concentration determination [facility] Mean corpuscular hem oglobin determination [facility] Measurement of renal function [facility] Neutrophil count [facility] Neutrophil percent d ifferential count [facility] Platelets [#/volume] in Blood [facility] Potassium measurement [facility] Red blood cell count [facility] Red cell distributio n width determination [facility] Serum chloride measurement [facility] Sodium measurement [facility] Troponin T.cardiac [ Mass/volume] in Serum or Plasma by High sensitivity method [facility] Urea nitrogen [Mass/ volume] in Serum or Plasma [facility] Payers Date Payer Category Payer Self-pay [id number] 2024 Unknown [id number] 2001 Medicare [id number] Unknown [id number] Unknown [id number] Unknown [id number] Social History Date Type Detail Facility Start: 02-07-2022 End: 06-06-2023 Tobacco smoking status KSIS Unknown if ever smoked [facility] Start: 1935 Sex Assigned At Female [facility] Start: 03-04-2024 End: 07-01-2025 Tobacco smoking status NHIS Never smoked tobacco (finding) [facility] Mental Status Date Assessment Result Facility 07-01-2025 Cognitive function Level Of Cons ciousness Awake;Alert;Appropriate;Follow s Commands [facility] Work Phone: Clinical Notes 07-01-2025 Note Date & Type Note Facility 07-01-2025 Consult note Note Date/Time July 01, 2025 2:42pm [facility] Medical Records Department [address] [place] [address] Consultation - Cardiology 07/01/25 1429 MR#: [id number] Acct: [id number] Name: TRISTEN ZAMARRIPA Rep #:[id number] 2 : [id number] 89 From: Elver Dickerson MD PCP: Dr. David Mace MD Status:REG E R Location: ED Assessment & Plan Assessment/Plan (1) 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 pectoris: QUALIFIERS: [place] vs. transplanted heart: lime heart QualifiedCode(s): I25.10 - 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 pectoris PLAN: The patient has known severe disease in the right coronary artery and circumflex. 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 The patient denies any anginal type symptoms. She has been treated since 2018 with medical therapy for her coronary anatomy. Patient has been on metoprolol aspirin atorvastatin 40 mg daily Imdur 30 mg daily and her blood pressures been controlled with losartan 100 mg daily (2) Syncope: QUALIFIERS: Syncope type: unspecified Qualified Code(s): R55 - Syncope and collapse PLAN: This appears to be related to a 2-1 AV conduction with heart block. Heartrate is in the 35 to 40 bpm range when she transiently goes into 2-1 conduction for 10 to 15 seconds at a time. The patient feels lightheaded and near syncopalbut has not passed out since she has been in the emergency department at bedrest. The patient did have an episode of bruce syncope witnessed in the homeprior to being transported to the emergency department. The patient's only rate modulating drug is metoprolol succinate 25 mg which has been held her last dose was last evening. Will continue her other medical therapy. The patient will be monitored with transcutaneous pacing overnight and plan for an elective permanent pacemaker implantation tomorrow. PLAN: Plan 1. Plan for elective permanent pacemaker implantation tomorrow. 2. Continue with transcutaneous backup pacing. 3. Will follow-up with further recommendations once all the lab work is available. HPI Consult Data Date of Consult: 07/01/25 HPI Narrative Reason for Consultation: Syncope HPI Narrative: TRISTEN ZAMARRIPA, is a 89 F who presents with syncope earlier today. This was witnessed she did not fall or hit her head. She was actually laying on the couch when she actually went out because she was feeling bad. Patient presented the emergency department where on the monitor she was noted togo into second-degree AV block. Her heart rate averaged out at 49. But she became near syncopal with these events. The patient was placed on an external pacer which intermittently was pacing the patient. She did not lose consciousness or have near syncope with the pacer on demand mode. The only ratemodulating drug the patient is on is metoprolol succinate 25 mg which she takes in the evening the last dose was last night. The patient had no previous history of syncope. She denies any chest pain denies any PND orthopnea denies any lower extremity edema. She does have known coronary disease in the right coronary artery and circumflex. That has been treated medically. She follows with the [facility]. The patient's last catheterization January 2022 there was severe disease in the right coronary and circumflex with inferior basilar wall motion abnormalities. These changes were unknown change from January 2018. The patient has continued chalo treated with medical therapy and denies any anginal symptoms. The patient isaerobically active she does all her housework in her own home she appears much younger than her stated age. [facility] Medical History Depression Iron deficiency anemia B12 deficiency 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 pectoris Essential (primary) hypertension Abnormal electrocardiogram Vitamin D deficiency GERD (gastroesophageal reflux disease) Anxiety Anemia Home Medications ?Medication ?Instructions ?Recorded ?Last Taken ?Type dexlansoprazole 60 mg 60 mg PO QDAY 05/01/1809/03 History capsule,biphase delayed release (Dexilant) aspirin 81 mg tablet,delayed 81 mg PO QDAY 05/02/18 History release (Adult Aspirin Regimen) losartan 100 mg tablet 100 mg PO DAILY 01/25/22 History acetaminophen 650 mg 650 mg PO Q12H PRN 06/06/23 Unknown History tablet,extended release (Tylenol Arthritis Pain) ascorbic acid (vitamin C) 500 mg 500 mg PO DAILY 06/06 Unknown History tablet polysaccharide iron complex 150 mg 150 mg PO BID 06/06 Unknown History iron capsule (Ferrex) mecobalamin (vitamin B12) 1,000 1,000 mcg PO DAILY Unknown History mcg lozenges metoprolol succinate 25 mg 25 mg PO DAILY #90 tabs Unknown Rx tablet,extended release 24 hr isosorbide mononitrate 30 mg 30 mg PO DAILY #90 tabs 0 11/25/24 Unknown Rx tablet,extended release 24 hr cholecalciferol (vitamin D3) 25 5,000 unit PO DAILY Unknown History mcg (1,000 unit) capsule venlafaxine 75 mg capsule,extended 150 mg PO QDAY 06/13 Unknown History release 24 hr (Effexor XR) atorvastatin 40 mg tablet 40 mg PO DAILY #90 tabs 02/19 12/14 Unknown Rx Allergy/AdvReac Type Severity Reaction Status Date / Time No Known Allergies Allergy Verified 07/01/25 13:25 Family History Brother Heart disease Myocardial infarction from [place] age 64 Surgical History History of appendectomy History of left heart catheterization (02/07/22) History of cataract surgery Hx of cataract surgery H/O left breast biopsy History of hysterectomy Social History Smoking Status: Never smoker alcohol intake: current alcohol intake frequency: holidays/special occasions only substance use type: does not use caffeine: Yes Type: coffee Number of servings: 2 ROS Constitutional Constitutional: Reports as per HPI Eyes Eyes: Reports systems reviewed and no addt'l complaints, except as documented ENT HEENT: Reports systems reviewed and no addt'l complaints, except as documented Cardiovascular Cardiovascular: Reports as per HPI Respiratory/Chest Respiratory/Chest: Reports systems reviewed and no addt'l complaints, except as documented Gastrointestinal Gastrointestinal: Reports systems reviewed and no addt'l complaints, except as documented Genitourinary Genitourinary: Reports systems reviewed and no addt'l complaints, except as documented Musculoskeletal Musculoskeletal: Reports systems reviewed and no addt'l complaints, except as documented Neurologic Neurologic: Reports as per HPI Psychiatric Psychiatric: Reports systems reviewed and no addt'l complaints, except as documented Endocrine Endocrinology: Reports systems reviewed and no addt'l complaints, except as documented Hematologic/Lymphatic Hematologic/Lymphatic: Reports systems reviewed and no addt'l complaints, exceptas documented Allergic/Immunologic Allergic/Immunologic: Reports systems reviewed and no addt'l complaints, except as documented Physical Exam Const alert and oriented x3 HEENT normocephalic Eyes EOMs intact bilaterally Neck no JVD and no carotid bruits Chest inspection of chest normal Resp normal respiratory effort and clear to auscultation bilaterally Cardio Cardio Narrative: Transiently the patient went into a 2:1 AV conduction with a heart rate of 40 bpm. Rate: regular rate Rhythm: regular rhythm Heart Sounds: S1 normal and S2 normal; Negative for click, gallop or murmur Extremity no pedal edema Neuro Neuro Narrative: Alert and oriented x 3 Psych mental status grossly normal Risk Stratification Risk Stratification Applicable: No Charges/Coding Visit Charges Inpatient E&M: 42546 Init Hosp L2 Objective Data Vital Signs: Vital Signs Temp Pulse Resp BP Pulse Ox O2 Del Method 98 F 69 17 166/79 H 100 Room Air 07/01/25 13:26 07/01/25 14:09 07/01/25 14:09 07/01/25 14:09 07/01/25 14:09 07/01/25 14:09 Oxygen Delivery Method Room Air Weight: 161 lb 6.054 oz Body Mass Index (BMI) 27.6 Intake & Output: Intake and Output for Last 24 Hours 06/29/25 06/30/25 07/01/25 23:59 23:59 23:59 Intake Total 0 / 0 Balance 0 / 0 Lab / Micro Data Attestation: I reviewed the patient's lab results. 07/01/25 14:07/01/25 14:09 Labs: Laboratory Results - last 24 hr 07/01/25 14:09: WBC 11.6 H, RBC 4.17 L, Hgb 11.8 L, Hct 36.6 L, MCV 87.8, MCH 28.3, MCHC 32.2, RDW Std Deviation 46.7 H, RDW Coeff of Jaquan 14.6, Plt Count 296,MPV 11.5, Immature Gran % (Auto) 0.500, Neut % (Auto) 81.3 H, Lymph % (Auto) 11.8 L, [place] % (Auto) 5.9, Eos % (Auto) 0.3, Baso % (Auto) 0.2, Absolute Neuts (auto) 9.4 H, Absolute Lymphs (auto) 1.37, Nucleated RBC % 0 Rhythm Strip Rhythm Strip: Sinus Rhythm Rate: 75 Ectopy: None Cardiology Labs/Tests 07/01/25 14:09: WBC 11.6 H, RBC 4.17 L, Hgb 11.8 L, Hct 36.6 L, MCV 87.8, MCH 28.3, MCHC 32.2, Plt Count 296, MPV 11.5, Immature Gran % (Auto) 0.500, Neut % (Auto) 81.3 H, Lymph % (Auto) 11.8 L, [place] % (Auto) 5.9, Eos % (Auto) 0.3, Baso % (Auto) 0.2, Absolute Neuts (auto) 9.4 H, Nucleated RBC % 0 Rhythm: EKG: ECHO: Stress Test: Cardiac Cath: PCI: CT Surgery: Holter monitor: EPS: PPM: CXR: Chest CT Scan: Radiography Diagnostic Testing: Radiology Impression Chest X-Ray 07/01/25 14:00 IMPRESSION: No acute abnormality. Mild cardiac enlargement. Reading Location: [facility] 07/01/25 1442 <Electronically signed by Elver Dickerson MD> Cosigner Signature (if applicable): CC: Dr. David Mace MD~ Signed [facility] Work Phone: [phone]) 239-324208-12-2025 History and physical note [facility] Medical Records Department [address] [place] [id number] H&P Exam - Hospitalist 07/01/25 1550 MR#: [id number] Acct: [id number] Name: TRISTEN ZAMARRIPA Rep #:[id number] : 1935 89 From: Nallely Fischer MD PCP: Dr. David Mace MD Status:ADM I N Location: ICU ICU02-1 HPI - General General Date of Admission: 07/01/25 Date of Service: 07/01/25 Chief Complaint: Syncopal episodes HPI Narrative TRISTEN ZAMARRIPA, is a 89-year-old female history of GERD, depression, hypertension who presented to [facility] ED 07/01/2025 due to episodes of nearsyncope and lightheadedness at random that started last night. She at some point reported she lost consciousness while lying on her couch as well. In the ED she had a long pause/asystole episode and lost consciousness but recovered prior to the ED doc going to the room. She takes 25 metoprolol succinate but noother AV kenyon blockers and denied any chest pain, no history of stents but doesnote history of coronary artery disease managed medically. In the ED temp 98, heart rate documented at 71 with blood pressure 165/75, respiratory rate 18 pulse ox 100% on room air. Given the above patient had stat EKG, initially EKG was unremarkable however she was left on the EKG machine until she had another episode and she appeared to be in Mobitz type II AV block, pacer pads were placed and she was hooked up to external pacing and was requiring frequent pacing initially. Chest x-ray in the ED with mild cardiac enlargement but no acute process, CBC with white blood cell count 11.6, hemoglobin 11.8, BMP [], troponin 16. Cardiology contacted and recommended admission with cardiology consult and possible pacemaker placement. Hospitalist contacted for admission. Patient evaluated at bedside with family present, reportedly patient did begin to have these episodes last night and had a little bit of nausea, she thought she ate too much sodid not seek medical attention, symptoms persisted today and to me she did not endorse any loss of consciousness but she had endorsed at another time. Denies any chest pain or shortness of breath, has a chronic morning cough, had little bit of nausea earlier but none at this time. She also noted maybe she had some ringing in her left ear recently but she also got new hearing aids and is not sure if it was that or not, not presently complaining of this. [facility] Medical History Depression Iron deficiency anemia B12 deficiency 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 pectoris Essential (primary) hypertension Abnormal electrocardiogram Vitamin D deficiency GERD (gastroesophageal reflux disease) Anxiety Anemia Home Medications ?Medication ?Instructions ?Recorded ?Last Taken ?Type dexlansoprazole 60 mg 60 mg PO QDAY 05/01/1809/03 History capsule,biphase delayed release (Dexilant) aspirin 81 mg tablet,delayed 81 mg PO QDAY 05/02/18 History release (Adult Aspirin Regimen) losartan 100 mg tablet 100 mg PO DAILY 01/25/22 History acetaminophen 650 mg 650 mg PO Q12H PRN fever or pain 06/06/23 Unknown History tablet,extended release (Tylenol Arthritis Pain) ascorbic acid (vitamin C) 500 mg 500 mg PO DAILY 06/06 Unknown History tablet polysaccharide iron complex 150 mg 150 mg PO BID 06/06 Unknown History iron capsule (Ferrex) mecobalamin (vitamin B12) 1,000 1,000 mcg PO DAILY Unknown History mcg lozenges metoprolol succinate 25 mg 25 mg PO DAILY #90 tabs Unknown Rx tablet,extended release 24 hr isosorbide mononitrate 30 mg 30 mg PO DAILY #90 tabs 0 11/25/24 Unknown Rx tablet,extended release 24 hr cholecalciferol (vitamin D3) 25 5,000 unit PO DAILY Unknown History mcg (1,000 unit) capsule venlafaxine 75 mg capsule,extended 150 mg PO QDAY 06/13 Unknown History release 24 hr (Effexor XR) atorvastatin 40 mg tablet 40 mg PO DAILY #90 tabs 02/19 12/14 Unknown Rx Allergy/AdvReac Type Severity Reaction Status Date / Time No Known Allergies Allergy Verified 07/01/25 13:25 Family History Brother Heart disease Myocardial infarction from [place] age 64 Surgical History History of appendectomy History of left heart catheterization (02/07/22) History of cataract surgery Hx of cataract surgery H/O left breast biopsy History of hysterectomy Social History Smoking Status: Never smoker alcohol intake: current alcohol intake frequency: holidays/special occasions only substance use type: does not use caffeine: Yes Type: coffee Number of servings: 2 ROS ROS Narrative General: Denies fever/chills HENT: Denies headache, denies stuffy nose, denies sore throat EYES: Denies changes in vision Resp: Little bit of the morning cough, denies shortness of breath Cardiac: Denies chest pain GI: Denies abdominal pain, denies changes in bowel, did have a little bit of nausea earlier in lastnight : Denies changes in urination Extremity: Denies swelling MSK: Denies weakness Neuro: Denies any numbness/tingling Heme: Denies any bleeding or bruising Skin: Denies rashes Psychiatric: No complaints voiced Vital Signs Vital Signs Vital Signs: 07/01/25 13:26 07/01/25 13:40 07/01/25 14:09 Temperature 98 F Temperature Source Oral Pulse Rate 71 76 69 Respiratory Rate 18 18 17 Blood Pressure 161/146 H 165/75 H 166/79 H Blood Pressure Mean 151 105 108 Pulse Ox 99 100 100 Oxygen Delivery Method Room Air Room Air Room Air 07/01/25 14:49 07/01/25 14:49 07/01/25 15:06 Temperature 97.9 F Temperature Source Pulse Rate 71 70 69 Respiratory Rate 20 H 18 18 Blood Pressure 140/81 H 140/81 H 145/77 H Blood Pressure Mean 100 100 99 Pulse Ox 97 95 98 Oxygen Delivery Method Room Air Room Air Weight Weight: 73.2 kg Body Mass Index (BMI) 27.6 Physical Exam Narrative General: Alert, oriented, no apparent distress HEENT: Atraumatic, normocephalic Eyes: Anicteric, normal conjunctiva, extraocular movements grossly intact Neck: Supple Respiratory: Clear to auscultation bilaterally, normal respiratory effort Cardiovascular: Regular rate and rhythm at time of my exam GI: Soft, nontender, nondistended Extremities: No edema Musculoskeletal: Moving all extremities Neuro: No overt focal neurological deficits Skin: No rashes appreciated Psych: Cooperative Results Lab / Micro Data 07/01/25 14:09 07/01/25 14:09 Labs: Laboratory Results - last 24 hr 07/01/25 14:09: WBC 11.6 H, RBC 4.17 L, Hgb 11.8 L, Hct 36.6 L, MCV 87.8, MCH 28.3, MCHC 32.2, RDW Std Deviation 46.7 H, RDW Coeff of Jaquan 14.6, Plt Count 296, MPV 11.5, Immature Gran % (Auto) 0.500, Neut % (Auto) 81.3 H, Lymph % (Auto) 11.8 L, [place] % (Auto) 5.9, Eos % (Auto) 0.3, Baso % (Auto) 0.2,Absolute Neuts (auto) 9.4 H, Absolute Lymphs (auto) 1.37, Nucleated RBC % 0, Sodium 137, Potassium 4.0, Chloride 102, Carbon Dioxide 20.1 L, Anion Gap 15, BUN 21 H, Creatinine 0.74, Estim Creat ClearCalc 46.74 L, Est GFR (MDRD) Non-Af 78, BUN/Creatinine Ratio 28.9 H, Glucose 123 H, Calcium 9.5, Troponin T High Sens 16 H Rhythm Strip Rhythm Strip: Sinus Rhythm Rate: 75 Ectopy: None Imaging Radiology Impression Chest X-Ray 07/01/25 14:00 IMPRESSION: No acute abnormality. Mild cardiac enlargement. Reading Location: [facility] Assessment & Plan Assessment/Plan (1) Syncope: QUALIFIERS: Syncope type: unspecified Qualified Code(s): R55 - Syncope and collapse (2) Atrioventricular block, Mobitz type 2: PLAN: Plan # Syncope secondary to heart block, suspected Mobitz type II - EKG captured with seem to be Mobitz type II AV block and it correlated with her symptoms - She did have syncopal episode with loss of consciousness in the ED during 1 of these events - Pacer pads in place, was requiring frequent pacing at 1 point, seems to have spaced out slightly but will be admitted to the ICU - Cardiology consult -Hold metoprolol -Will check mag and TSH -Possible pacemaker placement tomorrow pending progress, will make n.p.o. at midnight # History of coronary artery disease - No stents but does have known disease and follows with cardiology, being managed medically - Cardiology following -Holding beta-meche and Imdur but will continue other home medications #GERD -Continue PPI #Depression/anxiety -Continue home medications #Hypertension - Holding home beta-meche #DVT ppx: SCDs Nallely Fischer MD Charges/Coding Visit Charges Inpatient E&M: 54126 Init Hosp L2 07/01/25 5514 Cosigner Signature (if applicable): CC: Dr. Nallely Fischer MD; Dr. David Mace MD~ Signed [facility]08-12-2025 Discharge summary [facility] Medical Records Department [address] [place] [address] Emergency Department Summary 07/01/25 MR#: [id number] Acct: [id number] Name: TRISTEN ZAMARRIPA Rep #:[id number] : 1935 89 From: Zeb Walton MD PCP: Dr. David Mace MD Status:REG E R Location: ED HPI History of Present Illness Chief Complaint: Syncope Informant: patient, family and EMS Narrative Narrative: 89-year-old female started having near syncopal episodes last night, random lightheadedness, and then several times today, she thinks she actually lost consciousness at 1 point while she was laying on the couch. She did go to the bathroom and have a bowel movement but states this started before that. Upon EMS arrival, after they gave her aspirin and nitroglycerin for unclear reasons, they said her blood pressure was high but the patient had no chest discomfort ordyspnea today or last night, shehad another syncopal episode just prior to me evaluating the patient, with staff stating that she had a long pause/asystole episode in which patient lost consciousness but then recovered prior to my c oming into the room. Patient states she feels okay just a little weak all over. She has a history of CAD and follows with cardiology for that, treated medically she does not have any stents. Her medications include metoprolol succinate 25 mg, no other AV kenyon blockers. She states she takes that medication at night so her last dose was yesterday. [facility] Medical History Depression Iron deficiency anemia B12 deficiency 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 pectoris Essential (primary) hypertension Abnormal electrocardiogram Vitamin D deficiency GERD (gastroesophageal reflux disease) Anxiety Anemia Home Medications ?Medication ?Instructions ?Recorded ?Last Taken ?Type dexlansoprazole 60 mg 60 mg PO QDAY 05/01/1809/03 History capsule,biphase delayed release (Dexilant) aspirin 81 mg tablet,delayed 81 mg PO QDAY 05/02/18 History release (Adult Aspirin Regimen) losartan 100 mg tablet 100 mg PO DAILY 01/25/22 History acetaminophen 650 mg 650 mg PO Q12H PRN fever or pain 06/06/23 Unknown History tablet,extended release (Tylenol Arthritis Pain) ascorbic acid (vitamin C) 500 mg 500 mg PO DAILY 06/06 Unknown History tablet polysaccharide iron complex 150 mg 150 mg PO BID 06/06 Unknown History iron capsule (Ferrex) mecobalamin (vitamin B12) 1,000 1,000 mcg PO DAILY Unknown History mcg lozenges metoprolol succinate 25 mg 25 mg PO DAILY #90 tabs Unknown Rx tablet,extended release 24 hr isosorbide mononitrate 30 mg 30 mg PO DAILY #90 tabs 0 11/25/24 Unknown Rx tablet,extended release 24 hr cholecalciferol (vitamin D3) 25 5,000 unit PO DAILY Unknown History mcg (1,000 unit) capsule venlafaxine 75 mg capsule,extended 150 mg PO QDAY 06/13 Unknown History release 24 hr (Effexor XR) atorvastatin 40 mg tablet 40 mg PO DAILY #90 tabs 02/19 12/14 Unknown Rx Allergy/AdvReac Type Severity Reaction Status Date / Time No Known Allergies Allergy Verified 07/01/25 13:25 Family History Brother Heart disease Myocardial infarction from [place] age 64 Surgical History History of appendectomy History of left heart catheterization (02/07/22) History of cataract surgery Hx of cataract surgery H/O left breast biopsy History of hysterectomy Social History Smoking Status: Never smoker alcohol intake: current alcohol intake frequency: holidays/special occasions only substance use type: does not use caffeine: Yes Type: coffee Number of servings: 2 ROS ROS ED Constitutional Constitutional ED: Denies chills or fever(s) Eyes Eyes: Denies change in vision or diplopia ENT ENT ED: Denies rhinorrhea or sore throat Cardiovascular Cardiovascular: Reports lightheadedness and syncope; Denies chest pain, leg edema or palpitations Respiratory/Chest Respiratory/Chest: Denies cough or dyspnea Gastrointestinal Gastrointestinal: Denies abdominal pain, diarrhea, nausea or vomiting Genitourinary Genitourinary ED: Denies dysuria or hematuria Musculoskeletal Musculoskeletal: Denies back pain or neck pain Integumentary Denies abscess or rash Neurologic Neurologic: Denies headache(s), paresthesias or weakness Psychiatric Psychiatric: Denies anxiety or suicidal thoughts EXAM Physical Exam Const Vital Signs: 07/01/25 13:26 07/01/25 13:40 07/01/25 14:09 Temperature 98 F Temperature Source Oral Pulse Rate 71 76 69 Respiratory Rate 18 18 17 Blood Pressure 161/146 H 165/75 H 166/79 H Blood Pressure Mean 151 105 108 Pulse Ox 99 100 100 Oxygen Delivery Method Room Air Room Air Room Air 07/01/25 14:49 07/01/25 14:49 07/01/25 15:06 Temperature 97.9 F Temperature Source Pulse Rate 71 70 69 Respiratory Rate 20 H 18 18 Blood Pressure 140/81 H 140/81 H 145/77 H Blood Pressure Mean 100 100 99 Pulse Ox 97 95 98 Oxygen Delivery Method Room Air Room Air Positive well nourished and well developed General Appearance ED: well developed and NAD HEENT Reports moist mucous membranes normocephalic and atraumatic Eyes PERRL and EOMs intact bilaterally Neck full ROM and supple Resp normal respiratory effort and clear to auscultation bilaterally Cardio regular rate, regular rhythm and no murmurs Cardio Narrative: During exam, patient changes heart rate to about half, in the 30s, and pulses also cut in half at that time while patient is feeling lightheaded. This lasts for about 5-10 seconds but recurs. Peripheral Pulses: pulses 2+ throughout GI non-tender and non-distended Auscultation: normoactive bowel sounds Palpation: soft Back/Spine no CVA tenderness General Back: other FROM Extremity normal to inspection General Extremety ED: Negative for edema, pulses abnormal or tenderness General Extremity: Negative for edema or pulses abnormal Neuro oriented x3, CN's II-XII intact bilaterally and no sensory deficits noted Sensorium / Orientation: awake and alert Motor Exam: strength 5/5 throughout Skin no rashes or lesions noted and no wounds MDM MDM MDM Narrative Medical decision making narrative: During my exam the patient was having an episode of bradycardia so I laid her flat and she did welldid not lose consciousness with this although she did feellittle lightheaded. EKG was called stat, we started an IV and started some fluids, placed anterior posterior pacer pads and hooked her up to external pacing. The initial EKG is unremarkable with borderline LVH by voltage criteria, and we left her on the EKG machine until she had another episode we were able to capture what appears to be Mobitz 2 AVB. Consulted cardiology who saw the patient in the ER and is in agreement, they are going to let metoprolol washout and they are planning on suspected permanent pacemaker placement tomorrow AM. We tuned the transthoracic pacing so that it captured and programmed to on-demand pacing, she remained stable without was given some fentanyl and prophylactic Zofran. 1 view chest x-ray on my interpretation is unremarkable. Radiology in agreement. Labs noted, patient doing well with demand pacing, discussed with hospitalist for ICU admission. History & Record Review Additional record(s) reviewed:: Prior outpatient record (cardiology -- severe 2- vessel dz in circ, RCA from cath 01/2022) Lab Data Attestation: I reviewed the patient's lab results. Labs: Laboratory Results - last 24 hr 07/01/25 14:09 WBC 11.6 H RBC 4.17 L Hgb 11.8 L Hct 36.6 L MCV 87.8 MCH 28.3 MCHC 32.2 RDW Std Deviation 46.7 H RDW Coeff of Jaquan 14.6 Plt Count 296 MPV 11.5 Immature Gran % (Auto) 0.500 Neut % (Auto) 81.3 H Lymph % (Auto) 11.8 L [place] % (Auto) 5.9 Eos % (Auto) 0.3 Baso % (Auto) 0.2 Absolute Neuts (auto) 9.4 H Absolute Lymphs (auto) 1.37 Nucleated RBC % 0 Sodium 137 Potassium 4.0 Chloride 102 Carbon Dioxide 20.1 L Anion Gap 15 BUN 21 H Creatinine 0.74 Estim Creat Clear Calc 46.74 L Est GFR (MDRD) Non-Af 78 BUN/Creatinine Ratio 28.9 H Glucose 123 H Calcium 9.5 Troponin T High Sens 16 H Radiography Diagnostic Testing: Clinical Impression(s) from Imaging Studies Chest X-Ray 07/01/25 14:00 IMPRESSION: No acute abnormality. Mild cardiac enlargement. Reading Location: [facility] Rhythm Strip Rhythm Strip: Sinus Rhythm Rate: 75 Ectopy: None EKG Initial EKG: Attestation: I personally reviewed and interpreted this EKG as follows: Interpretation: Sinus Rhythm and No Acute Injury Pattern Follow-up EKG: Attestation: I personally reviewed and interpreted this EKG as follows: Interpretation: Sinus Rhythm, No Acute Injury Pattern and AV Block (Second- degree type II) Management Discussion w/another healthcare provider: Hospitalist and Supervisor Scrap Preparation (Cardiology) Critical Care Time Critical Care Time: Yes Critical care time (excluding procedures): 30-74 minutes (36 min), Including time spent:, Discussing w/Patient &/or 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 Call [facility] ([phone]) or report tothe closest Emergency Room. Call 911 if necessary. 07/01/25 1551 Cosigner Signature (if applicable): CC: Dr. David Mace MD ~ Signed [facility]08-12-2025 Consult note [facility] Medical Records Department [address] [place] [address] Consultation - Cardiology 07/01/25 1429 MR#: [id number] Acct: [id number] Name: TRISTEN ZAMARRIPA Rep #:[id number] : 1935 89 From: Elver Dickerson MD PCP: Dr. David Mace MD Status:REG E R Location: ED Assessment & Plan Assessment/Plan (1) 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 pectoris: QUALIFIERS: [place] vs. transplanted heart: lime heart QualifiedCode(s): I25.10 - 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 pectoris PLAN: The patient has known severe disease in the right coronary artery and circumflex. 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 The patient denies any anginal type symptoms. She has been treated since 2018 with medical therapy for her coronary anatomy. Patient has been on metoprolol aspirin atorvastatin 40 mg daily Imdur 30 mg daily and her blood pressures been controlled with losartan 100 mg daily (2) Syncope: QUALIFIERS: Syncope type: unspecified Qualified Code(s): R55 - Syncope and collapse PLAN: This appears to be related to a 2-1 AV conduction with heart block. Heartrate is in the 35 to40 bpm range when she transiently goes into 2-1 conduction for 10 to 15 seconds at a time. The patient feels lightheaded and near syncopalbut has not passed out since she has been in [facility] emergency dep [facility]. The patient did have an episode of bruce syncope witnessed in the homeprior to being transported to the emergency department. The patient's only rate modulating drug is metoprolol succinate 25 mg which has been held her last dose was last evening. Will continue her other medical therapy. The patient will be monitored with transcutaneous pacing overnight and plan for an elective permanent pacemaker implantation tomorrow. PLAN: Plan 1. Plan for elective permanent pacemaker implantation tomorrow. 2. Continue with transcutaneous backup pacing. 3. Will follow-up with further recommendations once all the lab work is available. HPI Consult Data Date of Consult: 07/01/25 HPI Narrative Reason for Consultation: Syncope HPI Narrative: TRISTEN ZAMARRIPA, is a 89 F who presents with syncope earlier today. This was witnessed she did not fall or hit her head. She was actually laying on the couch when she actually went out because she was feeling bad. Patient presented the emergency department where on the monitor she was noted togo into second-degree AV block. Her heart rate averaged out at 49. But she became near syncopal with these events. The patient was placed on an external pacer which intermittently was pacing the patient. She did not lose consciousness or have near syncope with the pacer on demand mode. The only ratemodulating drug thepatient is on is metoprolol succinate 25 mg which she takes in the evening the last dose was last night. The patient had no previous history of syncope. She denies any chest pain denies any PND orthopnea denies any lower extremity edema. She does have known coronary disease in the right coronary artery and circumflex. That has been treated medically. She follows with the [facility]. The patient's last catheterization January 2022 there was severe disease in the right coronary and circumflex with inferior basilar wall motion abnormalities. These changes were unknown change from January 2018. The patient has continued chalo treated with medical therapy and denies any anginal symptoms. The patient isaerobically active she does all her housework in her own home she appears much younger than her stated age. [facility] Medical History Depression Iron deficiency anemia B12 deficiency 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 pectoris Essential (primary) hypertension Abnormal electrocardiogram Vitamin D deficiency GERD (gastroesophageal reflux disease) Anxiety Anemia Home Medications ?Medication ?Instructions ?Recorded ?Last Taken ?Type dexlansoprazole 60 mg 60 mg PO QDAY 05/01/1809/03 History capsule,biphase delayed release (Dexilant) aspirin 81 mg tablet,delayed 81 mg PO QDAY 05/02/18 History release (Adult Aspirin Regimen) losartan 100 mg tablet 100 mg PO DAILY 01/25/22 History acetaminophen 650 mg 650 mg PO Q12H PRN 06/06/23 Unknown History tablet,extended release (Tylenol Arthritis Pain) ascorbic acid (vitamin C) 500 mg 500 mg PO DAILY 06/06 Unknown History tablet polysaccharide iron complex 150 mg 150 mg PO BID 06/06 Unknown History iron capsule (Ferrex) mecobalamin (vitamin B12) 1,000 1,000 mcg PO DAILY Unknown History mcg lozenges metoprolol succinate 25 mg 25 mg PO DAILY #90 tabs Unknown Rx tablet,extended release 24 hr isosorbide mononitrate 30 mg 30 mg PO DAILY #90 tabs 0 11/25/24 Unknown Rx tablet,extended release 24 hr cholecalciferol (vitamin D3) 25 5,000 unit PO DAILY Unknown History mcg (1,000 unit) capsule venlafaxine 75 mg capsule,extended 150 mg PO QDAY 06/13 Unknown History release 24 hr (Effexor XR) atorvastatin 40 mg tablet 40 mg PO DAILY #90 tabs 02/19 12/14 Unknown Rx Allergy/AdvReac Type Severity Reaction Status Date / Time No Known Allergies Allergy Verified 07/01/25 13:25 Family History Brother Heart disease Myocardial infarction from AR age 64 Surgical History History of appendectomy History of left heart catheterization (02/07/22) History of cataract surgery Hx of cataract surgery H/O left breast biopsy History of hysterectomy Social History Smoking Status: Never smoker alcohol intake: current alcohol intake frequency: holidays/special occasions only substance use type: does not use caffeine: Yes Type: coffee Number of servings: 2 ROS Constitutional Constitutional: Reports as per HPI Eyes Eyes: Reports systems reviewed and no addt'l complaints, except as documented ENT HEENT: Reports systems reviewed and no addt'l complaints, except as documented Cardiovascular Cardiovascular: Reports as per HPI Respiratory/Chest Respiratory/Chest: Reports systems reviewed and no addt'l complaints, except as documented Gastrointestinal Gastrointestinal: Reports systems reviewed and no addt'l complaints, except as documented Genitourinary Genitourinary: Reports systems reviewed and no addt'l complaints, except as documented Musculoskeletal Musculoskeletal: Reports systems reviewed and no addt'l complaints, except as documented Neurologic Neurologic: Reports as per HPI Psychiatric Psychiatric: Reports systems reviewed and no addt'l complaints, except as documented Endocrine Endocrinology: Reports systems reviewed and no addt'l complaints, except as documented Hematologic/Lymphatic Hematologic/Lymphatic: Reports systems reviewed and no addt'l complaints, exceptas documented Allergic/Immunologic Allergic/Immunologic: Reports systems reviewed and no addt'l complaints, except as documented Physical Exam Const alert and oriented x3 HEENT normocephalic Eyes EOMs intact bilaterally Neck no JVD and no carotid bruits Chest inspection of chest normal Resp normal respiratory effort and clear to auscultation bilaterally Cardio Cardio Narrative: Transiently the patient went into a 2:1 AV conduction with a heart rate of 40 bpm. Rate: regular rate Rhythm: regular rhythm Heart Sounds: S1 normal and S2 normal; Negative for click, gallop or murmur Extremity no pedal edema Neuro Neuro Narrative: Alert and oriented x 3 Psych mental status grossly normal Risk Stratification Risk Stratification Applicable: No Charges/Coding Visit Charges Inpatient E&M: 36042 Init Hosp L2 Objective Data Vital Signs: Vital Signs Temp Pulse Resp BP Pulse Ox O2 Del Method 98 F 69 17 166/79 H 100 Room Air 07/01/25 13:26 07/01/25 14:09 07/01/25 14:09 07/01/25 14:09 07/01/25 14:09 07/01/25 14:09 Oxygen Delivery Method Room Air Weight: 161 lb 6.054 oz Body Mass Index (BMI) 27.6 Intake & Output: Intake and Output for Last 24 Hours 06/29/25 06/30/25 07/01/25 23:59 23:59 23:59 Intake Total 0 / 0 Balance 0 / 0 Lab / Micro Data Attestation: I reviewed the patient's lab results. 07/01/25 14:09 07/01/25 14:09 Labs: Laboratory Results - last 24 hr 07/01/25 14:09: WBC 11.6 H, RBC 4.17 L, Hgb 11.8 L, Hct 36.6 L, MCV 87.8, MCH 28.3, MCHC 32.2, RDW Std Deviation 46.7 H, RDW Coeff of Jaquan 14.6, Plt Count 296,MPV 11.5, Immature Gran % (Auto) 0.500, Neut % (Auto) 81.3 H, Lymph % (Auto) 11.8 L, [place] % (Auto) 5.9, Eos % (Auto) 0.3, Baso % (Auto) 0.2, Absolute Neuts (auto) 9.4 H, Absolute Lymphs (auto) 1.37, Nucleated RBC % 0 Rhythm Strip Rhythm Strip: Sinus Rhythm Rate: 75 Ectopy: None Cardiology Labs/Tests 07/01/25 14:09: WBC 11.6 H, RBC 4.17 L, Hgb 11.8 L, Hct 36.6 L, MCV 87.8, MCH 28.3, MCHC 32.2, Plt Count 296, MPV 11.5, Immature Gran % (Auto) 0.500, Neut % (Auto) 81.3 H, Lymph % (Auto) 11.8 L, [place]% (Auto) 5.9, Eos % (Auto) 0.3, Baso % (Auto) 0.2, Absolute Neuts (auto) 9.4 H, Nucleated RBC % 0 Rhythm: EKG: ECHO: Stress Test: Cardiac Cath: PCI: CT Surgery: Holter monitor: EPS: PPM: CXR: Chest CT Scan: Radiography Diagnostic Testing: Radiology Impression Chest X-Ray 07/01/25 14:00 IMPRESSION: No acute abnormality. Mild cardiac enlargement. Reading Location: [facility] 07/01/25 1445 Cosigner Signature (if applicable): CC: Dr. David Mace MD~ Signed [facility]08-12-2025 Radiology Diagnostic study note [facility] Imaging Services [address] [place] [id number] Chest 1 View (Portable) MR#: [id number] Acct: [id number] Name: TRISTEN ZAMARRIPA Rep #: [id number] : 1935 F 89 From: Ady Bergeron MD PCP: Dr. David Mace MD Status: REG E R Study:Chest 1 View (Portable) Date of Exam: 07/01/25 Exam# [id number] Ordering Dr: Mil Walton MD PROCEDURE: CHEST 1 VIEW (PORTABLE) 07/01/2025 REASON FOR EXAM: SYNCOPE/MEDIASTINAL EVAL TECHNIQUE: Frontal view of the chest. COMPARISON: 2022, August 30, 2018 FINDINGS: Hardware: EKG leads Heart: Mildly enlarged. The aorta is atherosclerotic. Lungs: Clear. Overlapping normal structures of the right upper lobe related to the inferior angle of the scapula, ribs and bronchovascular structures. No pneumothorax or pleural effusion. Bones: The bones are unremarkable. RAD/Chest 1 View (Portable) IMPRESSION: No acute abnormality. Mild cardiac enlargement. Reading Location: [facility] CC: Dr. Zeb Walton MD; Dr. David Mace MD ~ Special Education Inclusion Teacher: Signed [facility]08-12-2025 Discharge summary Author Zeb Walton [facility] Note Date/Time July 01, 2025 3: 51pm [facility] Medical Records Department [address] [place] [address] Emergency Department Summary 07/01/25 MR#: [id number] Acct: [id number] Name: TRISTEN ZAMARRIPA Rep #:[id number] : 1935 89 From: Zeb Walton MD PCP: Dr. David Mace MD Status:REG E R Location: ED HPI History of Present Illness Chief Complaint: Syncope Informant: patient, family and EMS Narrative Narrative: 89-year-old female started having near syncopal episodes last night, random lightheadedness, and then several times today, she thinks she actually lost consciousness at 1 point while she was laying on the couch. She did go to the bathroom and have a bowel movement but states this started before that. Upon EMS arrival, after they gave her aspirin and nitroglycerin for unclear reasons, they said her blood pressure was high but the patient had no chest discomfort ordyspnea today or last night, she had another syncopal episode just prior to me evaluating the patient, with staff stating that she had a long pause/asystole episode in which patient lost consciousness but then recovered prior to my coming into the room. Patient states she feels okay just a little weak all over. She has a history of CAD and follows with cardiology for that, treated medically she does not have any stents. Her medications include metoprolol succinate 25 mg, no other AV kenyon blockers. She states she takes that medication at night so her last dose was yesterday. [facility] Medical History Depression Iron deficiency anemia B12 deficiency 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 pectoris Essential (primary) hypertension Abnormal electrocardiogram Vitamin D deficiency GERD (gastroesophageal reflux disease) Anxiety Anemia Home Medications ?Medication ?Instructions ?Recorded ?Last Taken ?Type dexlansoprazole 60 mg 60 mg PO QDAY 05/01/1809/03 History capsule,biphase delayed release (Dexilant) aspirin 81 mg tablet,delayed 81 mg PO QDAY 05/02/18 History release (Adult Aspirin Regimen) losartan 100 mg tablet 100 mg PO DAILY 01/25/22 History acetaminophen 650 mg 650 mg PO Q12H PRN fever or pain 06/06/23 Unknown History tablet,extended release (Tylenol Arthritis Pain) ascorbic acid (vitamin C) 500 mg 500 mg PO DAILY 06/06 Unknown History tablet polysaccharide iron complex 150 mg 150 mg PO BID 06/06 Unknown History iron capsule (Ferrex) mecobalamin (vitamin B12) 1,000 1,000 mcg PO DAILY Unknown History mcg lozenges metoprolol succinate 25 mg 25 mg PO DAILY #90 tabs Unknown Rx tablet,extended release 24 hr isosorbide mononitrate 30 mg 30 mg PO DAILY #90 tabs 0 11/25/24 Unknown Rx tablet,extended release 24 hr cholecalciferol (vitamin D3) 25 5,000 unit PO DAILY Unknown History mcg (1,000 unit) capsule venlafaxine 75 mg capsule,extended 150 mg PO QDAY 06/13 Unknown History release 24 hr (Effexor XR) atorvastatin 40 mg tablet 40 mg PO DAILY #90 tabs 02/19 12/14 Unknown Rx Allergy/AdvReac Type Severity Reaction Status Date / Time No Known Allergies Allergy Verified 07/01/25 13:25 Family History Brother Heart disease Myocardial infarction from [place] age 64 Surgical History History of appendectomy History of left heart catheterization (02/07/22) History of cataract surgery Hx of cataract surgery H/O left breast biopsy History of hysterectomy Social History Smoking Status: Never smoker alcohol intake: current alcohol intake frequency: holidays/special occasions only substance use type: does not use caffeine: Yes Type: coffee Number of servings: 2 ROS ROS ED Constitutional Constitutional ED: Denies chills or fever(s) Eyes Eyes: Denies change in vision or diplopia ENT ENT ED: Denies rhinorrhea or sore throat Cardiovascular Cardiovascular: Reports lightheadedness and syncope; Denies chest pain, leg edema or palpitations Respiratory/Chest Respiratory/Chest: Denies cough or dyspnea Gastrointestinal Gastrointestinal: Denies abdominal pain, diarrhea, nausea or vomiting Genitourinary Genitourinary ED: Denies dysuria or hematuria Musculoskeletal Musculoskeletal: Denies back pain or neck pain Integumentary Denies abscess or rash Neurologic Neurologic: Denies headache(s), paresthesias or weakness Psychiatric Psychiatric: Denies anxiety or suicidal thoughts EXAM Physical Exam Const Vital Signs: 07/01/25 13:26 07/01/25 13:40 07/01/25 14:09 Temperature 98 F Temperature Source Oral Pulse Rate 71 76 69 Respiratory Rate 18 18 17 Blood Pressure 161/146 H 165/75 H 166/79 H Blood Pressure Mean 151 105 108 Pulse Ox 99 100 100 Oxygen Delivery Method Room Air Room Air Room Air 07/01/25 14:49 07/01/25 14:49 07/01/25 15:06 Temperature 97.9 F Temperature Source Pulse Rate 71 70 69 Respiratory Rate 20 H 18 18 Blood Pressure 140/81 H 140/81 H 145/77 H Blood Pressure Mean 100 100 99 Pulse Ox 97 95 98 Oxygen Delivery Method Room Air Room Air Positive well nourished and well developed General Appearance ED: well developed and NAD HEENT Reports moist mucous membranes normocephalic and atraumatic Eyes PERRL and EOMs intact bilaterally Neck full ROM and supple Resp normal respiratory effort and clear to auscultation bilaterally Cardio regular rate, regular rhythm and no murmurs Cardio Narrative: During exam, patient changes heart rate to about half, in the 30s, and pulses also cut in half at that time while patient is feeling lightheaded. This lasts for about 5-10 seconds but recurs. Peripheral Pulses: pulses 2+ throughout GI non-tender and non-distended Auscultation: normoactive bowel sounds Palpation: soft Back/Spine no CVA tenderness General Back: other FROM Extremity normal to inspection General Extremety ED: Negative for edema, pulses abnormal or tenderness General Extremity: Negative for edema or pulses abnormal Neuro oriented x3, CN's II-XII intact bilaterally and no sensory deficits noted Sensorium / Orientation: awake and alert Motor Exam: strength 5/5 throughout Skin no rashes or lesions noted and no wounds MDM MDM MDM Narrative Medical decision making narrative: During my exam the patient was having an episode of bradycardia so I laid her flat and she did well did not lose consciousness with this although she did feellittle lightheaded. EKG was called stat, we started an IV and started some fluids, placed anterior posterior pacer pads and hooked her up to external pacing. The initial EKG is unremarkable with borderline LVH by voltage criteria, and we left her on the EKG machine until she had another episode we were able to capture what appears to be Mobitz 2 AVB. Consulted cardiology who saw the patient in the ER and is in agreement, they are going to let metoprolol washout and they are planning on suspected permanent pacemaker placement tomorrow AM. We tuned the transthoracic pacing so that it captured and programmed to on-demand pacing, she remained stable without was given some fentanyl and prophylactic Zofran. 1 view chest x-ray on my interpretation is unremarkable. Radiology in agreement. Labs noted, patient doing well with demand pacing, discussed with hospitalist for ICU admission. History & Record Review Additional record(s) reviewed:: Prior outpatient record (cardiology -- severe 2-vessel dz in circ, RCA from cath 01/2022) Lab Data Attestation: I reviewed the patient's lab results. Labs: Laboratory Results - last 24 hr 07/01/25 14:09 WBC 11.6 H RBC 4.17 L Hgb 11.8 L Hct 36.6 L MCV 87.8 MCH 28.3 MCHC 32.2 RDW Std Deviation 46.7 H RDW Coeff of Jaquan 14.6 Plt Count 296 MPV 11.5 Immature Gran % (Auto) 0.500 Neut % (Auto) 81.3 H Lymph % (Auto) 11.8 L [place] % (Auto) 5.9 Eos % (Auto) 0.3 Baso % (Auto) 0.2 Absolute Neuts (auto) 9.4 H Absolute Lymphs (auto) 1.37 Nucleated RBC % 0 Sodium 137 Potassium 4.0 Chloride 102 Carbon Dioxide 20.1 L Anion Gap 15 BUN 21 H Creatinine 0.74 Estim Creat Clear Calc 46.74 L Est GFR (MDRD) Non-Af 78 BUN/Creatinine Ratio 28.9 H Glucose 123 H Calcium 9.5 Troponin T High Sens 16 H Radiography Diagnostic Testing: Clinical Impression(s) from Imaging Studies Chest X-Ray 07/01/25 14:00 IMPRESSION: No acute abnormality. Mild cardiac enlargement. Reading Location: [id number] Rhythm Strip Rhythm Strip: Sinus Rhythm Rate: 75 Ectopy: None EKG Initial EKG: Attestation: I personally reviewed and interpreted this EKG as follows: Interpretation: Sinus Rhythm and No Acute Injury Pattern Follow-up EKG: Attestation: I personally reviewed and interpreted this EKG as follows: Interpretation: Sinus Rhythm, No Acute Injury Pattern and AV Block (Second- degree type II) Management Discussion w/another healthcare provider: Hospitalist and Supervisor Scrap Preparation (Cardiology) Critical Care Time Critical Care Time: Yes Critical care time (excluding procedures): 30-74 minutes (36 min), Including time spent:, Discussing w/Patient &/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 Call [facility] ([phone]) or report to the closest Emergency Room. Call 911 if necessary. 07/01/25 1559 <Electronically signed by Zeb Walton MD> Cosigner Signature (if applicable): CC: Dr. 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 David Mace MD Status:ADM I N Location: ICU ICU02-1 HPI - General General Date of Admission: 07/01/25 Date of Service: 07/01/25 Chief Complaint: Syncopal episodes HPI Narrative TRISTEN ZAMARRIPA, is a 89-year-old female history of GERD, depression, hypertension who presented to [facility] ED 07/01/2025 due to episodes of nearsyncope and lightheadedness at random that started last night. She at some point reported she lost consciousness while lying on her couch as well. In the ED she had a long pause/asystole episode and lost consciousness but recovered prior to the ED doc going to the room. She takes 25 metoprolol succinate but noother AV kenyon blockers and denied any chest pain, no history of stents but doesnote history of coronary artery disease managed medically. In the ED temp 98, heart rate documented at 71 with blood pressure 165/75, respiratory rate 18 pulse ox 100% on room air. Given the above patient had stat EKG, initially EKG was unremarkable however she was left on the EKG machine until she had another episode and she appeared to be in Mobitz type II AV block, pacer pads were placed and she was hooked up to external pacing and was requiring frequent pacing initially. Chest x-ray in the ED with mild cardiac enlargement but no acute process, CBC with white blood cell count 11.6, hemoglobin 11.8, BMP [], troponin 16. Cardiology contacted and recommended admission with cardiology consult and possible pacemaker placement. Hospitalist contacted for admission. Patient evaluated at bedside with family present, reportedly patient did begin to have these episodes last night and had a little bit of nausea, she thought she ate too much so did not seek medical attention, symptoms persisted today and to me she did not endorse any loss of consciousness but she had endorsed at another time. Denies any chest pain or shortness of breath, has a chronic morning cough, had little bit of nausea earlier but none at this time. She also noted maybe she had some ringing in her left ear recently but she also got new hearing aids and is not sure if it was that or not, not presently complaining of this. [facility] Medical History Depression Iron deficiency anemia B12 deficiency 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 pectoris Essential (primary) hypertension Abnormal electrocardiogram Vitamin D deficiency GERD (gastroesophageal reflux disease) Anxiety Anemia Home Medications ?Medication ?Instructions ?Recorded ?Last Taken ?Type dexlansoprazole 60 mg 60 mg PO QDAY 05/01/1809/03 History capsule,biphase delayed release (Dexilant) aspirin 81 mg tablet,delayed 81 mg PO QDAY 05/02/18 History release (Adult Aspirin Regimen) losartan 100 mg tablet 100 mg PO DAILY 01/25/22 History acetaminophen 650 mg 650 mg PO Q12H PRN fever or pain 06/06/23 Unknown History tablet,extended release (Tylenol Arthritis Pain) ascorbic acid (vitamin C) 500 mg 500 mg PO DAILY 06/06 Unknown History tablet polysaccharide iron complex 150 mg 150 mg PO BID 06/06 Unknown History iron capsule (Ferrex) mecobalamin (vitamin B12) 1,000 1,000 mcg PO DAILY Unknown History mcg lozenges metoprolol succinate 25 mg 25 mg PO DAILY #90 tabs Unknown Rx tablet,extended release 24 hr isosorbide mononitrate 30 mg 30 mg PO DAILY #90 tabs 0 11/25/24 Unknown Rx tablet,extended release 24 hr cholecalciferol (vitamin D3) 25 5,000 unit PO DAILY Unknown History mcg (1,000 unit) capsule venlafaxine 75 mg capsule,extended 150 mg PO QDAY 06/13 Unknown History release 24 hr (Effexor XR) atorvastatin 40 mg tablet 40 mg PO DAILY #90 tabs 02/19 12/14 Unknown Rx Allergy/AdvReac Type Severity Reaction Status Date / Time No Known Allergies Allergy Verified 07/01/25 13:25 Family History Brother Heart disease Myocardial infarction from [place] age 64 Surgical History History of appendectomy History of left heart catheterization (02/07/22) History of cataract surgery Hx of cataract surgery H/O left breast biopsy History of hysterectomy Social History Smoking Status: Never smoker alcohol intake: current alcohol intake frequency: holidays/special occasions only substance use type: does not use caffeine: Yes Type: coffee Number of servings: 2 ROS ROS Narrative General: Denies fever/chills HENT: Denies headache, denies stuffy nose, denies sore throat EYES: Denies changes in vision Resp: Little bit of the morning cough, denies shortness of breath Cardiac: Denies chest pain GI: Denies abdominal pain, denies changes in bowel, did have a little bit of nausea earlier in last night : Denies changes in urination Extremity: Denies swelling MSK: Denies weakness Neuro: Denies any numbness/tingling Heme: Denies any bleeding or bruising Skin: Denies rashes Psychiatric: No complaints voiced Vital Signs Vital Signs Vital Signs: 07/01/25 13:26 07/01/25 13:40 07/01/25 14:09 Temperature 98 F Temperature Source Oral Pulse Rate 71 76 69 Respiratory Rate 18 18 17 Blood Pressure 161/146 H 165/75 H 166/79 H Blood Pressure Mean 151 105 108 Pulse Ox 99 100 100 Oxygen Delivery Method Room Air Room Air Room Air 07/01/25 14:49 07/01/25 14:49 07/01/25 15:06 Temperature 97.9 F Temperature Source Pulse Rate 71 70 69 Respiratory Rate 20 H 18 18 Blood Pressure 140/81 H 140/81 H 145/77 H Blood Pressure Mean 100 100 99 Pulse Ox 97 95 98 Oxygen Delivery Method Room Air Room Air Weight Weight: 73.2 kg Body Mass Index (BMI) 27.6 Physical Exam Narrative General: Alert, oriented, no apparent distress HEENT: Atraumatic, normocephalic Eyes: Anicteric, normal conjunctiva, extraocular movements grossly intact Neck: Supple Respiratory: Clear to auscultation bilaterally, normal respiratory effort Cardiovascular: Regular rate and rhythm at time of my exam GI: Soft, nontender, nondistended Extremities: No edema Musculoskeletal: Moving all extremities Neuro: No overt focal neurological deficits Skin: No rashes appreciated Psych: Cooperative Results Lab / Micro Data 07/01/25 14:09 07/01/25 14:09 Labs: Laboratory Results - last 24 hr 07/01/25 14:09: WBC 11.6 H, RBC 4.17 L, Hgb 11.8 L, Hct 36.6 L, MCV 87.8, MCH 28.3, MCHC 32.2, RDW Std Deviation 46.7 H, RDW Coeff of Jaquan 14.6, Plt Count 296, MPV 11.5, Immature Gran % (Auto) 0.500, Neut % (Auto) 81.3 H, Lymph % (Auto) 11.8 L, [place] % (Auto) 5.9, Eos % (Auto) 0.3, Baso % (Auto) 0.2, Absolute Neuts (auto) 9.4 H, Absolute Lymphs (auto) 1.37, Nucleated RBC % 0, Sodium 137, Potassium 4.0, Chloride 102, Carbon Dioxide 20.1 L, Anion Gap 15, BUN 21 H, Creatinine 0.74, Estim Creat Clear Calc 46.74 L, Est GFR (MDRD) Non-Af 78, BUN/Creatinine Ratio 28.9 H, Glucose 123 H, Calcium 9.5, Troponin T High Sens 16 H Rhythm Strip Rhythm Strip: Sinus Rhythm Rate: 75 Ectopy: None Imaging Radiology Impression Chest X-Ray 07/01/25 14:00 IMPRESSION: No acute abnormality. Mild cardiac enlargement. Reading Location: [id number] Assessment & Plan Assessment/Plan (1) Syncope: QUALIFIERS: Syncope type: unspecified Qualified Code(s): R55 - Syncope and collapse (2) Atrioventricular block, Mobitz type 2: PLAN: Plan # Syncope secondary to heart block, suspected Mobitz type II - EKG captured with seem to be Mobitz type II AV block and it correlated with her symptoms - She did have syncopal episode with loss of consciousness in the ED during 1 of these events - Pacer pads in place, was requiring frequent pacing at 1 point, seems to have spaced out slightly but will be admitted to the ICU - Cardiology consult -Hold metoprolol -Will check mag and TSH -Possible pacemaker placement tomorrow pending progress, will make n.p.o. at midnight # History of coronary artery disease - No stents but does have known disease and follows with cardiology, being managed medically - Cardiology following -Holding beta-meche and Imdur but will continue other home medications #GERD -Continue PPI #Depression/anxiety -Continue home medications #Hypertension - Holding home beta-meche #DVT ppx: SCDs Nallely Fischer MD Charges/Coding Visit Charges Inpatient E&M: 95256 Init Hosp L2 07/01/25 1556 <Electronically signed by Nallely Fischer MD> Cosigner Signature (if applicable): CC: Dr. Nallely Fischer MD; Dr. David Mace MD~ Signed [facility] Work Phone: Reason for referral (narrative)No reason for referral information availableWBlanchard [facility] Work Phone: Chief Complaint and Reason for Visit Chief Complaint LOW BACK PAIN LBP.RX HERE 1 Y FU KNEE/ANKLE PAIN CAD,EXERTIONAL CP, HTN Reason for Visit Exertional chest gabrielle n Essential (primary) hypertension Chief Complaint LBP.RX HERE 1 Y FU KNEE/ANKLE PAIN CAD,EXERTIONAL CP, HTN LABWORK Reason for Visit Exertional chest gabrielle n Essential (primary) hypertension Chief Complaint LABWORK 4 M FU Reason for Visit Atherosclerotic hear t disease of lime coronary artery without angina pectoris Essential (primary) hypertension Chief Complaint 4 M FU Reason for Visit Atherosclerotic hear t disease of lime coronary artery without angina pectoris Essential (primary) hypertension Chief Complaint 6 M FU EORDER BORREGO Reason for Visit Atherosclerotic hear t disease of lime coronary artery without angina pectoris Dyspnea on exertion Essential (primary) hypertension Chief Complaint 6 M FU EORDER BORREGO 3 m fu Consult DECREASED PEDAL PULSES Reason for Visit Atherosclerotic hear t disease of lime coronary artery without angina pectoris Dyspnea on exertion Essential (primary) hypertension 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 pectoris Decreased pedal pulses Essential (primary) hypertension Iron deficiency anemia Chief Complaint 3 m fu Consult DECREASED PEDAL PULSES Reason for Visit Atherosclerotic hear t disease of lime coronary artery without angina pectoris Decreased pedal pulses Essential (primary) hypertension Iron deficiency anemia Chief Complaint Chills (without feve r) Chief Complaint Admit Date syncope July 01, 2025 2: 29pm SYNCOPE SECONDARY TO INTERMITTENT HEART BLOCK July 01, 2025 3:50pm Reason for Visit Admit Date Atherosclerotic heart diseas e of lime coronary artery without angina pectoris July 01, 2025 3:50pm Atrioventricular block, Mobitz type 2 Au 2024 3:50pm Syncope July 01, 2025 3: 50pm Family History Relationship Condition Age at Onset Recorded Date/T federico brother Cardiac disease Unknown Myocardial infarction Unknown Advance Directives Advance Directive Response Recorded Date/ Time Advance Directives Yes February 07 7:28am Living Will Yes February 07, 2022 7:28am Power of Production Coordinator Yes February 07 7:28am Advance Directive Response Recorded Date/ Time Advance Directives on File Yes February 07, 2022 7:28am Name of Medical Power of Production Coordinator Guanakito herron February 07, 2022 7:28am Advance Directives Yes February 07 7:28am Living Will Yes February 07, 2022 7:28am Power of Production Coordinator Yes February 07 7:28am Advance Directive Response Recorded Date/ Time Advance Directives Yes February 07 6:28am Living Will Yes February 07, 2022 6:28am Power of Production Coordinator Yes February 07 6:28am Advance Directive Response Recorded Date/ Time Advance Directives Yes February 07 7:28am Advance Directive Response Recorded Date/ Time Do you have a Healthcare Power of Production Coordinator? Yes July 01, 2025 4:34pm Name of Medical Power of Production Coordinator [place] July 01, 2025 4:34pm Advance Directives Yes February 07 7:28am Summary Purpose Additional Source Comments Goals (unrecognized section and content) Goals may be documented in a n alternate sectionGoals may be documented in an alternate sectionGoals may be documented in an alternate sectionGoals may be documented in an alternate sectionGoals may be documented in an alternate sectionGoals may be documented in an alternate sectionGoals may be documented in an alternate sectionGoals may be documented in an alternate sectionGoals may be documented in an alternate sectionGoals may be documented in an alternate sectionGoals may be documented in an alternate sectionGoals may be documented in an alternate section Care Teams (unrecognized sec tion and content) Team Status: Active Member Role Status Dates Dr. David Mace MD Family Provider Active Dr. David Mace MD Primary Care Provider Active Team Status: Inactive Member Role Status Dates Dr. David Mace MD Primary Care Provider, Referring Provider Active Deloris Boothe BASKETBALL COACH, BASKETBALL COACH-C Attending Provider Active Team Status: Active Member Role Status Dates Dr. David Mace MD Primary Care Provider Active Dr. Deangelo Dhillon MD Attending Provider Active Team Status: Inactive Member Role Status Dates Dr. David Mace MD Primary Care Provider, Attending Provider Active Team Status: Inactive Member Role Status Dates Dr. David Mace MD Primary Care Provider Active Deloris Boothe BASKETBALL COACH, BASKETBALL COACH-C Attending Provider, Referring P sirena Active Team Status: Active Member Role Status Dates Dr. David Mace MD Primary Care Provider Active Deloris Boothe BASKETBALL COACH, BASKETBALL COACH-C Attending Provider Active Team Status: Active Member Role Status Dates Dr. David Mace MD Primary Care Provider, Attending Provider Active Team Status: Inactive Member Role Status Dates Dr. David Mace MD Primary Care Provider Active Deloris Boothe BASKETBALL COACH, BASKETBALL COACH-C Attending Provider Active Team Status: Inactive Member Role Status Dates Dr. David Mace MD Primary Care Provider, Referring Provider Active Maddison Sprague PA, PA Attending Provider Active Team Status: Inactive Member Role Status Dates Dr. David Mace MD Primary Care Provider, Referring Provider Active Kiley Correa BASKETBALL COACH, BASKETBALL COACH-C Attending Provider Active Team Status: Active Member Role Status Dates Dr. David Mace MD Primary Care Provider Active Maddison Sprague PA, PA Attending Provider, Referr ing Provider Active Team Status: Active Member Role Status Dates Dr. David Mace MD Primary Care Provider Active Kiley Correa BASKETBALL COACH, BASKETBALL COACH-C Attending Provider, Referrin g Provider Active Team Status: Active Member Role Status Dates Dr. David Mace MD Primary Care Provider Active Dr. Hernan Randolph MD Attending Provider Active Maddison JOHNSON PA Referring Provider Active Team Status: Inactive Member Role Status Dates Dr. David Mace MD Primary Care Provider Active Maddison JOHNSON PA Attending Provider, Referr ing Provider Active Team Status: Inactive Member Role Status Dates Dr. David Mace MD Primary Care Provider Active Kiley Correa BASKETBALL COACH, BASKETBALL COACH-C Attending Provider, Referrin g Provider Active Team Status: Inactive Member Role Status Dates Dr. David Mace MD Primary Care Provi dimitri, Attending Provider, Referring Provider Active Team Status: Active Member Role Status Dates Dr. David Mace MD Primary Care Provi dimitri, Attending Provider, Referring Provider Active Team Status: Active Member Role/Relationship Status Dates Dr. David Mace MD Family Provider Active Dr. David Mace MD Primary Care Provider Active Team Status: Inactive Member Role/Relationship Status Dates Dr. David Mace MD Primary Care Provider Active Start: May 30, 2025 End: May 30, 2025 Dr. David Mace MD Attending Provider Active Start: May 30, 2025 End: May 30, 2025 Team Status: Active Member Role/Relationship Status Dates Dr. David Mace MD Primary Care Provider Active Team Status: Active Member Role/Relationship Status Dates Dr. David Mace MD Primary Care Provider Active Start: July 01, 2025 Dr. Zeb Walton MD Emergency Provider Active Start: July 01, 2025 Dr. Elver Dickerson MD Attending Provider Active Start: July 01, 2025 Team Status: Active Member Role/Relationship Status Dates Dr. David Mace MD Primary Care Provider Active Start: July 01, 2025 Dr. Zeb Walton MD Emergency Provider Active Start: July 01, 2025 Dr. Nallely Fischer MD Admit Provider Active Star t: July 01, 2025 Dr. Nallely Fischer MD Attending Provider Active Start: July 01, 2025 Dr. Nallely Fischer MD Other Provider Active Star t: July 01, 2025 INFORMATION SOURCE (unrecogn ized section and content) DATE CREATED AUTHOR 06/08/2025 [facility] FOR RECORDS PERTAINING TO PATIENTS WHO ARE OR HAVE BEEN ENROLLED IN A CHEMICAL DEPENDENCY/SUBSTANCEABUSE PROGRAM, SOME INFORMATION MAY BE OMITTED. This clinical summary was aggregated from multiple sources. Caution should be exercised in using it in the provision of clinical care. This summary normalizes information from multiple sources, and as a consequence, information in this document may materially change the coding, format and clinical context of patient data. In addition, data may be omitted in some cases. CLINICAL DECISIONS SHOULD BE BASED ON THE PRIMARY CLINICAL RECORDS. [facility] [employer] [facility]. provides no warranty or guarantee of the accuracy or completeness of information in this document.
[2025-07-02] VITALS (21 sets, daily range): BP systolic 124–174; BP diastolic 48–101; PULSE 63–91; RESP 12–24; TEMP 36.2–37.2; O2SAT 93–100; BMI 27.3
[2025-07-02] MEDS: 0.9% Normal Saline (1000mL) 1,000 ML 15 ML IV (03:16)
[2025-07-02 03:31] LABS: Hematocrit 37.3 % (37-47); Hemoglobin 11.8 g/dL (12.0-15.0); Immature Granulocytes Count 0.020 X10^3/uL (0.0-0.0); Mean Corp Hgb Conc 31.6 g/dL (32-36); Mean Corpuscular Volume 89.4 fL (81-99); Mean Platelet Vol. 11.0 fl (6.2-12.0); NRBC Flagged by Analyzer 0 % (0-5); Platelet Count 279 K/mm3 (150-450); RBC Distribution Width CV 14.6 % (11.6-14.6); RBC Distribution Width SD 47.7 fl (35.1-43.9); Red Blood Count 4.17 M/mm3 (4.2-5.4); White Blood Count 7.2 K/mm3 (4.4-11.0)
[2025-07-02 03:59] LABS: Anion Gap 12 (5-15); BUN 17 mg/dL (4-19); BUN/Creat Ratio 20.5 RATIO (10-20); Calcium,Total 9.3 mg/dL (7.6-11.0); Carbon Dioxide 24.1 mmol/L (21.0-32.0); Chloride 106 mmol/L (98-108); Estimated Creatinine Clearance 43.85 ml/min (50-250); Glucose 105 mg/dL (70-99); Potassium 4.4 mmol/L (3.3-5.1)
[2025-07-02 04:20] LABS: Magnesium 2.1 mg/dL (1.5-2.2)
--- NOTE | 2025-07-02 05:55 | EKG12_ITS ---
Test Reason : pre op Blood Pressure : */* mmHG Vent. Rate : 74 BPM Atrial Rate : 74 BPM P-R Int : 180 ms QRS Dur : 120 ms QT Int : 434 ms P-R-T Axes : 53 -33 9 degrees QTcB Int : 481 ms Normal sinus rhythm Left axis deviation Left ventricular hypertrophy with QRS widening and repolarization abnormality ( R in aVL , [place] product ) Inferior infarct , age undetermined Abnormal ECG When compared with ECG of 01-Jul-2025 13:34, MANUAL COMPARISON REQUIRED DATA IS UNCONFIRMED Confirmed by Elver Dickerson ([id number]), graphic editor TRAVIS VÁSQUEZ ([id number]) on 07/03/2025 6:26:39 AM Referred By: Confirmed By: Elver Dickerson
[2025-07-02] MEDS: 0.9% Normal Saline (1000mL) 1,000 ML 60 ML IV (08:00)
--- NOTE | 2025-07-02 08:31 | PN.HOSP_ITS ---
Subjective Subjective Doing well, no issues overnight. Maintained on external pacers intermittently in the ER however since admission she has not needed to be paced Objective Data Objective Data Vital Signs: Vital Signs Temp Pulse Resp BP Pulse Ox O2 Del Method O2 Flow Rate 97.3 F L 72 15 168/66 H 100 Nasal Cannula 2 07/02/25 07:00 07/02/25 08:00 07/02/25 07:00 07/02/25 07:00 07/02/25 07:00 07/02/25 07:00 07/02/25 07:00 Oxygen Flow Rate (L/min) 2 Oxygen Delivery Method Nasal Cannula Weight: 159 lb 9.835 oz Body Mass Index (BMI) 27.3 Intake & Output: Intake and Output for Last 24 Hours 07/01/25 07/02/25 07/03/25 03:59 03:59 03:59 Intake Total 495 / 495 68 / 68 Balance 495 / 495 68 / 68 Lab / Micro Data 07/02/25 03:24 07/02/25 03:24 Labs: Laboratory Results - last 24 hr 07/01/25 14:09: WBC 11.6 H, RBC 4.17 L, Hgb 11.8 L, Hct 36.6 L, MCV 87.8, MCH 28.3, MCHC 32.2, RDW Std Deviation 46.7 H, RDW Coeff of Jaquan 14.6, Plt Count 296, MPV 11.5, Immature Gran % (Auto) 0.500, Neut % (Auto) 81.3 H, Lymph % (Auto) 11.8 L, [place] % (Auto) 5.9, Eos % (Auto) 0.3, Baso % (Auto) 0.2, Absolute Neuts (auto) 9.4 H, Absolute Lymphs (auto) 1.37, Nucleated RBC % 0, Sodium 137, Potassium 4.0, Chloride 102, Carbon Dioxide 20.1 L, Anion Gap 15, BUN 21 H, Creatinine 0.74, Estim Creat Clear Calc 46.74 L, Est GFR (MDRD) Non-Af 78, B UN/Creatinine Ratio 28.9 H, Glucose 123 H, Calcium 9.5, Troponin T High Sens 16 H 07/01/25 16:10: Troponin T Hi Sens 2 Hr 12 07/01/25 18:37: Troponin T Hi Sens 4Hr 17 H 07/02/25 03:24: WBC 7.2, RBC 4.17 L, Hgb 11.8 L, Hct 37.3, MCV 89.4, MCH 28.3, M CHC 31.6 L, RDW Std Deviation 47.7 H, RDW Coeff of Jaquan 14.6, Plt Count 279, MPV 11.0, Immature Gran % (Auto) 0.300, Neut % (Auto) 63.9, Lymph % (Auto) 24.9, [place] % (Auto) 9.6, Eos % (Auto) 1.0, Baso % (Auto) 0.3, Absolute Neuts (auto) 4.6, Absolute Lymphs (auto) 1.79, Nucleated RBC % 0, Sodium 142, Potassium 4.4, Chloride 106, Carbon Dioxide 24.1, Anion Gap 12, BUN 17, Creatinine 0.85, Estim Creat Clear Calc 43.85 L, Est GFR (MDRD) Non-Af 66, BUN/Creatinine Ratio 20.5 H, Glucose 105 H, Calcium 9.3, Magnesium 2.1, TSH 0.902 Radiography Diagnostic Testing: Radiology Impression Chest X-Ray 07/01/25 14:00 IMPRESSION: No acute abnormality. Mild cardiac enlargement. Reading Location: [facility] Rhythm Strip Rhythm Strip: Sinus Rhythm Rate: 75 Ectopy: None Physical Exam Narrative General: Alert, Oriented x3, Cooperative, No apparent distress HEENT: Atraumatic, PERRLA, EOMI, Normocephalic Oral: Moist Mucosa Neck: Supple, No JVD Lungs: Diminished, Normal air movement, No rhonchi, No wheeze, No rales Cardiovascular: Regular rate, Regular Rhythm, Normal S1, Normal S2, No murmurs Abdomen: Soft, Non Tender, Non-Distended, No Hepato-splenomegaly Extremities: No edema, Capillary Refill Less than 3 Seconds Skin: No rashes, No breakdown Musculoskeletal: No Tenderness to Palpation of Joints or Extremities Neurological: No focal neurological deficits, Motor Exam 5/5 strength throughout, Sensory exam intact to light touch and pain Psych/Mental Status: Normal Affect, Appropriate Assessment & Plan Assessment/Plan (1) Syncope: QUALIFIERS: Syncope type: unspecified Qualified Code(s): R55 - Syncope and collapse (2) Atrioventricular block, Mobitz type 2: PLAN: Plan Syncope secondary to heart block, suspected Mobitz type II/CAD/essential HTN/HLD - EKG captured with seem to be Mobitz type II AV block and it correlated with her symptoms - She did have syncopal episode with loss of consciousness in the ED during 1 of these events - Pacer pads in place, was requiring frequent pacing at 1 point, seems to have spaced out slightly but will be admitted to the ICU - Cardiology consult -Hold metoprolol, will continue with losartan -Magnesium and TSH are normal -Plan for pacemaker placement today at noon ? Continue with Lipitor and aspirin 2. GERD ? Stable -Continue PPI 3. Depression/anxiety ? Stable -Continue home medications DVT: SCDs Charges/Coding Visit Charges Inpatient E&M: 58524 Subs Hosp L2
--- NOTE | 2025-07-02 09:24 | CASEMGMT ---
Advanced Directive Validation- SW met with pt to request copies of directives. Pt names son Guanakito as HCPOA and reports that he has planned to bring in documents at his visit. RHONDA Lux
[2025-07-02] MEDS: 0.9% Saline Lock 10 ML Syringe IV ×2 (09:28→15:15)
--- NOTE | 2025-07-02 09:30 | CASEMGMT ---
ADRIANA MALLORY Assessment Face to Face with patient for initial transition planning/care coordination assessment. ADRIANA MALLORY introduced self and role at [facility], pt voices understanding. Pt is A&Ox4 and is resting comfortably in bed and is calm. Care providers, pharmacy, and demographics verified. Admitting dx: Syncope secondary to intermittent heart block LACE Strata: 1 PCP: Rodri Specialists: KATHLEEN Preferred Pharmacy: [facility] Insurance: [employer] A/B, [employer] Prescription Benefit: Yes LNOK: Guanakito (Son -Lives close in [place]), Walker (Son - Lives next door), Shan (Son - Lives in [place]) Living Arrangements: Pt lives with her 20 y/o GS in the upper portion of [facility] with a stair lift to get in ADLs/IADLs: Pt states that she is indep and denies concerns. Current 6-Click score is 20. Transportation: Self, family. Denies concerns DME: Access to a cane, FWW, and shower chair HHC/SNF: Denies hx or needs. Pt reports that she has been to for OP Tx Pt?s goal: Home Plan: Anticipate home no additional needs once the pt is medically ready for DC. Plan is for pacer placement today. Nursing to provide education subsequently regarding care. At this time, the pt denies the need for any additional therapy or resources and states that she has plenty of family support at home. Pt denies further questions or concerns at this time. Mil Garrison RN, CM
--- NOTE | 2025-07-02 11:33 | NURSING ---
to golf course laborer via bed w/ golf course laborer RNs
--- NOTE | 2025-07-02 13:17 | PN.CARD_ITS ---
Subjective Subjective Patient seen and evaluated. Objective Data Vital Signs: Vital Signs Temp Pulse Resp BP Pulse Ox O2 Del Method O2 Flow Rate 97.7 F L 84 24 H 136/83 H 97 Room Air 2 07/02/25 10:00 07/02/25 11:00 07/02/25 11:00 07/02/25 11:00 07/02/25 11:00 07/02/25 11:00 07/02/25 07:00 Oxygen Flow Rate (L/min) 2 Oxygen Delivery Method Room Air Weight: 159 lb 9.835 oz Body Mass Index (BMI) 27.3 Intake & Output: Intake and Output for Last 24 Hours 06/30/25 07/01/25 07/02/25 23:59 23:59 23:59 Intake Total 495 / 495 Balance 495 / 495 Lab / Micro Data 07/02/25 03:24 07/02/25 03:24 Labs: Laboratory Results - last 24 hr 07/01/25 14:09: WBC 11.6 H, RBC 4.17 L, Hgb 11.8 L, Hct 36.6 L, MCV 87.8, MCH 28.3, MCHC 32.2, RDW Std Deviation 46.7 H, RDW Coeff of Jaquan 14.6, Plt Count 296, MPV 11.5, Immature Gran % (Auto) 0.500, Neut % (Auto) 81.3 H, Lymph % (Auto) 11.8 L, Andrews % (Auto) 5.9, Eos % (Auto) 0.3, Baso % (Auto) 0.2, Absolute Neuts (auto) 9.4 H, Absolute Lymphs (auto) 1.37, Nucleated RBC % 0, Sodium 137, Potassium 4.0, Chloride 102, Carbon Dioxide 20.1 L, Anion Gap 15, BUN 21 H, Creatinine 0.74, Estim Creat Clear Calc 46.74 L, Est GFR (MDRD) Non-Af 78, B UN/Creatinine Ratio 28.9 H, Glucose 123 H, Calcium 9.5, Troponin T High Sens 16 H 07/01/25 16:10: Troponin T Hi Sens 2 Hr 12 07/01/25 18:37: Troponin T Hi Sens 4Hr 17 H 07/02/25 03:24: WBC 7.2, RBC 4.17 L, Hgb 11.8 L, Hct 37.3, MCV 89.4, MCH 28.3, M CHC 31.6 L, RDW Std Deviation 47.7 H, RDW Coeff of Jaquan 14.6, Plt Count 279, MPV 11.0, Immature Gran % (Auto) 0.300, Neut % (Auto) 63.9, Lymph % (Auto) 24.9, Andrews % (Auto) 9.6, Eos % (Auto) 1.0, Baso % (Auto) 0.3, Absolute Neuts (auto) 4.6, Absolute Lymphs (auto) 1.79, Nucleated RBC % 0, Sodium 142, Potassium 4.4, Chloride 106, Carbon Dioxide 24.1, Anion Gap 12, BUN 17, Creatinine 0.85, Estim Creat Clear Calc 43.85 L, Est GFR (MDRD) Non-Af 66, BUN/Creatinine Ratio 20.5 H, Glucose 105 H, Calcium 9.3, Magnesium 2.1, TSH 0.902 Rhythm Strip Rhythm Strip: Sinus Rhythm Rate: 75 Ectopy: None Cardiology Labs/Tests 07/01/25 14:09: WBC 11.6 H, RBC 4.17 L, Hgb 11.8 L, Hct 36.6 L, MCV 87.8, MCH 28.3, MCHC 32.2, Plt Count 296, MPV 11.5, Immature Gran % (Auto) 0.500, Neut % (Auto) 81.3 H, Lymph % (Auto) 11.8 L, Andrews % (Auto) 5.9, Eos % (Auto) 0.3, Baso % (Auto) 0.2, Absolute Neuts (auto) 9.4 H, Nucleated RBC % 0, Sodium 137, Potassium 4.0, Chloride 102, Carbon Dioxide 20.1 L, Anion Gap 15, BUN 21 H, Creatinine 0.74, Est GFR (MDRD) Non-Af 78, BUN/Creatinine Ratio 28.9 H, Glucose 123 H, Calcium 9.5 07/02/25 03:24: WBC 7.2, RBC 4.17 L, Hgb 11.8 L, Hct 37.3, MCV 89.4, MCH 28.3, M CHC 31.6 L, Plt Count 279, MPV 11.0, Immature Gran % (Auto) 0.300, Neut % (Auto) 63.9, Lymph % (Auto) 24.9, Andrews % (Auto) 9.6, Eos % (Auto) 1.0, Baso % (Auto) 0.3, Absolute Neuts (auto) 4.6, Nucleated RBC % 0, Sodium 142, Potassium 4.4, Chloride 106, Carbon Dioxide 24.1, Anion Gap 12, BUN 17, Creatinine 0.85, Est GFR (MDRD) Non-Af 66, BUN/Creatinine Ratio 20.5 H, Glucose 105 H, Calcium 9.3, Magnesium 2.1 Rhythm: EKG: ECHO: Stress Test: Cardiac Cath: PCI: CT Surgery: Holter monitor: EPS: PPM: CXR: Chest CT Scan: Radiography Diagnostic Testing: Radiology Impression Chest X-Ray 07/01/25 14:00 IMPRESSION: No acute abnormality. Mild cardiac enlargement. Reading Location: [facility] Physical Exam Const alert, oriented x3 and no apparent distress General Appearance: cooperative HEENT hearing grossly normal bilaterally Head and Scalp: atraumatic Eyes EOMs intact bilaterally Neck General: normal visual inspection Chest inspection of chest normal and palpation of chest normal Resp normal respiratory effort Auscultation: clear to auscultation bilaterally Cardio regular rate, regular rhythm, S1 normal heart sound and S2 normal heart sound Jugular Venous Distention: JVD GI normal to inspection, nondistended, normoactive bowel sounds Extremity normal capillary refill and no pedal edema Peripheral Pulses: Yes pulses 2+ throughout and femoral pulses present Skin no rashes or lesions noted Neuro oriented x3 and CN's II-XII intact bilaterally Psych Appearance: grossly normal and appropriate Assessment & Plan Assessment/Plan (1) Atherosclerotic heart disease of [place] coronary artery without angina pectoris: QUALIFIERS: [place] vs. transplanted heart: [place] heart Qualified Code(s): I25.10 - Atherosclerotic heart disease of [place] coronary artery without angina pectoris PLAN: The patient has known severe disease in the right coronary artery and circumflex. 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 The patient denies any anginal type symptoms. She has been treated since 2018 with medical therapy for her coronary anatomy. Patient has been on metoprolol aspirin atorvastatin 40 mg daily Imdur 30 mg daily and her blood pressures been controlled with losartan 100 mg daily. Plan to be to continue this. (2) Syncope: QUALIFIERS: Syncope type: unspecified Qualified Code(s): R55 - Syncope and collapse PLAN: This appears to be related to no high-grade heart block as well as intermittent 2-1. Patient underwent dual-chamber pacemaker placement today will be interrogated tomorrow and hopefully discharge.
--- NOTE | 2025-07-02 13:17 | CL.IE_ITS ---
Patient: TRISTEN ZAMARRIPA Study Date: 07/02/2025 Performing: Deangelo Dhillon MD : 1935 Age: 89 Gender: female PROCEDURES PERFORMED [id number])INITIAL PACER INSERT+DUAL LEADS INDICATIONS Syncope Mobitz (type II) AV block PROCEDURE DETAILS The patient was brought to the Catheterization Lab in the postabsorptive nonsedated state. Informed consent was obtained prior to the procedure. Local anesthetic was given subcutaneously to the left upper chest area with Lidocaine 2%. Incision was made to the left upper chest. Access was achieved and a guidewire was advanced into the left subclavian vein. PPM ventricular lead was inserted / positioned to right ventricular apex. PPM ventricular lead testing performed. PPM ventricular lead testing performed. PPM atrial lead was inserted / positioned to the right atrial appendage. PPM atrial lead testing performed. The wire was then removed. The Ventricular PM lead sutured in place with 2-0 Silk. The Atrial lead sutured in place with 2-0 Silk. Device pocket was irrigated with antibiotic, Ancef 1gm. PPM generator was attached to the lead(s) and inserted into the pocket. Subcutaneous closure was completed with 3-0 Vicryl. Skin closure was completed with 4-0 Vicryl. Pressure dressing applied to left chest. The patient tolerated the procedure well. Estimated Blood Loss: 10 ml's IMPLANTED / EX-PLANTED DEVICES IMPLANTED DEVICE(S): PPM Ventricular lead - Him Tech: [employer], Model # 7841 , Serial # [id number] PPM Atrial lead - Him Tech: [employer], Model # 7840 , Serial # [id number] PPM Generator - Him Tech: [employer], Model # L111 , Serial # [id number] DEVICE PARAMETERS ATRIAL LEAD PARAMETERS: P wave- 3.6 (mV) Current- 1.2 (mA) threshold- 0.7 (V) impedence- 606 (OHMS) VENTRICULAR LEAD PARAMETERS: R wave- 25.0 (mV) Current- 0.6 (mA) threshold- 0.5 (V) impedence- 906 (OHMS) DEVICE PARAMETERS: Mode- DDD Lower rate- 60 Upper rate- 120 CONCLUSIONS / RECOMMENDATIONS Device Conclusions: Successful implantation of a dual chamber pacemaker Device Recommendations: Follow up with Primary Care Physician PROCEDURE MEDICATIONS Versed 1 mg IV Fentanyl 50 mcg IV Versed 1 mg IV Oxygen: 2 L/min via nasal cannula Antibiotic given in appropriate timeframe. Ancef 2 Gm IV @ 07/02/2025 11:51:19 Signed By Deangelo Dhillon MD On 07/02/2025 13:16:53 Deangelo Dhillon MD
[2025-07-03] MEDS: 0.9% Normal Saline (1000mL) 1,000 ML 60 ML IV (02:07)
[2025-07-03 03:10] VITALS: BP 157/87; PULSE 85; RESP 16; TEMP 37; O2SAT 100
[2025-07-03 03:48] VITALS: BMI 28.0
--- NOTE | 2025-07-03 05:11 | RAD_ITS ---
PROCEDURE: CHEST 3 VIEW 07/03/2025 REASON FOR EXAM: POST PERMANENT ICD/PACEMAKER TECHNIQUE: CHEST 3 VIEW COMPARISON: 07/01/2025 FINDINGS: Lordotic positioning. Unremarkable cardiac pacer. Heart size is normal. Prominent left-sided fat pad. Well inflated lungs overall with linear scar/atelectasis in the right perihilar region. Emphysema and smoking-related interstitial lung disease.. No consolidation, effusion, or pneumothorax. Old compression deformity thoracic lumbar junction. Osteoporosis. RAD/Chest 3 View IMPRESSION: Unremarkable pacer appearance. No pneumothorax. Reading Location: [facility]-
[2025-07-03 06:44] VITALS: O2SAT 94
[2025-07-03 07:25] LABS: Hematocrit 40.8 % (37-47); Hemoglobin 13.2 g/dL (12.0-15.0); Immature Granulocytes Count 0.040 X10^3/uL (0.0-0.0); Mean Corp Hgb Conc 32.4 g/dL (32-36); Mean Corpuscular Volume 86.3 fL (81-99); Mean Platelet Vol. 10.9 fl (6.2-12.0); NRBC Flagged by Analyzer 0 % (0-5); Platelet Count 297 K/mm3 (150-450); RBC Distribution Width CV 14.6 % (11.6-14.6); RBC Distribution Width SD 46.0 fl (35.1-43.9); Red Blood Count 4.73 M/mm3 (4.2-5.4); White Blood Count 8.1 K/mm3 (4.4-11.0)
--- NOTE | 2025-07-03 08:57 | PN.CARD_ITS ---
Subjective Subjective Patient seen and evaluated. Appears to be doing well. Objective Data Vital Signs: Vital Signs Temp Pulse Resp BP Pulse Ox O2 Del Method O2 Flow Rate 98.6 F 85 16 157/87 H 100 Room Air 2 07/03/25 03:10 07/03/25 03:10 07/03/25 03:10 07/03/25 03:10 07/03/25 03:10 07/03/25 03:10 07/02/25 07:00 Oxygen Flow Rate (L/min) 2 Oxygen Delivery Method Room Air Weight: 163 lb 2.273 oz Body Mass Index (BMI) 28.0 Intake & Output: Intake and Output for Last 24 Hours 07/01/25 07/02/25 07/03/25 23:59 23:59 23:59 Intake Total 495 / 495 68 / 68 1000 / 1000 Output Total 2100 / 2100 Balance 495 / 495 68 / -1132 -1100 / -1100 Lab / Micro Data 07/03/25 06:50 07/02/25 03:24 Labs: Laboratory Results - last 24 hr 07/03/25 06:50: WBC 8.1, RBC 4.73, Hgb 13.2, Hct 40.8, MCV 86.3, MCH 27.9, MCHC 32.4, RDW Std Deviation 46.0 H, RDW Coeff of Jaquan 14.6, Plt Count 297, MPV 10.9, Immature Gran % (Auto) 0.500, Neut % (Auto) 71.0 H, Lymph % (Auto) 15.6 L, Moffat % (Auto) 11.3 H, Eos % (Auto) 1.4, Baso % (Auto) 0.2, Absolute Neuts (auto) 5.8, Absolute Lymphs (auto) 1.27, Nucleated RBC % 0 Rhythm Strip Rhythm Strip: Sinus Rhythm Rate: 75 Ectopy: None Cardiology Labs/Tests 07/03/25 06:50: WBC 8.1, RBC 4.73, Hgb 13.2, Hct 40.8, MCV 86.3, MCH 27.9, MCHC 32.4, Plt Count 297, MPV 10.9, Immature Gran % (Auto) 0.500, Neut % (Auto) 71.0 H, Lymph % (Auto) 15.6 L, Moffat % (Auto) 11.3 H, Eos % (Auto) 1.4, Baso % (Auto) 0.2, Absolute Neuts (auto) 5.8, Nucleated RBC % 0 Rhythm: EKG: ECHO: Stress Test: Cardiac Cath: PCI: CT Surgery: Holter monitor: EPS: PPM: CXR: Chest CT Scan: Radiography Diagnostic Testing: Radiology Impression Chest X-Ray 07/03/25 05:11 IMPRESSION: Unremarkable pacer appearance. No pneumothorax. Reading Location: [place] [id number] Physical Exam Const alert, oriented x3 and no apparent distress General Appearance: cooperative HEENT hearing grossly normal bilaterally Head and Scalp: atraumatic Eyes EOMs intact bilaterally Neck General: normal visual inspection Chest inspection of chest normal and palpation of chest normal Resp normal respiratory effort Auscultation: clear to auscultation bilaterally Cardio regular rate, regular rhythm, S1 normal heart sound and S2 normal heart sound Jugular Venous Distention: JVD GI normal to inspection, nondistended, normoactive bowel sounds Extremity normal capillary refill and no pedal edema Peripheral Pulses: Yes pulses 2+ throughout and femoral pulses present Skin no rashes or lesions noted Neuro oriented x3 and CN's II-XII intact bilaterally Psych Appearance: grossly normal and appropriate Assessment & Plan Assessment/Plan (1) Presence of cardiac pacemaker: PLAN: Status post pacemaker placement for complete heart block. Chest x-ray demonstrates normal positioning. And pacer checks normally. Will discharge for outpatient follow-up.
--- NOTE | 2025-07-03 08:59 | PCM.DC ---
Discharge Instructions DC O2, CPAP, BIPAP needs Home O2 Discharge instructions: No Dressing / Incision Discharge Activity: May Not Drive May shower in (days): 2 Additional Activity Instructions:: May shower or bathe on [day 3]. Do not scrub the incision or soak in the tub. Just wash with soap and let the water run over the incision. Gently pat dry with towel. Medications: Take your pain medication as directed. Refer to your discharge instruction sheet for a list of medications you are to take. Dressing / Incision Call your doctor if your incision/area has: Continuous Slow Oozing, Sudden Increased Bleeding, Increased Pain/ Swelling, Increased Redness, Foul Smelling Discharge and Swelling at the incision site Call your doctor if you observe: Fever of 101 or Higher, Shortness of breath, Dizziness, Fainting spells, Swelling in the ankles, Chest pain, Prolonged hiccupping and Increased palpitations (irregular heartbeat) Suture Line Care: Avoid Pulling/Pushing and Avoid Pinching/Bending Change Dressing in: 3 days Cleanse incision/area with: Keep Dressing Clean & Dry Additional Dressing/Incision Instructions:: When dressing is removed, wash and dry incision. Keep covered with a light bandage if it is rubbing against your clothing. Do not cover the incision with an airtight bandage. Change the bandage daily. Do not remove steri strips. The strips will fall off on their own. Follow Up Care Please Follow Up With: Deangelo Dhillon MD When: Pacer follow-up on July 10 at 2 PM Test Results: Test results from this visit will be discussed in further detail at your follow-up appointment, if applicable. Discharge Plan Admission Admit Date/Time: 07/01/25 15:50 Attending Provider: Erik Jaquez Primary Care Provider: David Mace Chi Consulting Providers: Nallely Fischer; Rubia Fall; Lacho Llamas; Mg Jefferson; Max Newman; Josefa Delacruz; Raymond Franco; Roman Cotto; Deangelo Dhillon; Sameer Decker; Tho Rubalcava; Elver Dickerson; Jose Lopez; Jamila Kan; Juan Valdivia; Vinay Melgar; Guanakito Soto MAKING MACHINE CATCHER; Maddison Sprague PA; Jose Gaona Discharge Orders/Prescriptions Prescriptions: No Action aspirin [Adult Aspirin Regimen] 81 mg tablet,delayed release (DR/EC) 81 mg PO QDAY venlafaxine [Effexor XR] 75 mg capsule,extended release 24hr 150 mg PO QDAY dexlansoprazole [Dexilant] 60 mg capsule,biphase delayed releas 60 mg PO QDAY losartan 100 mg tablet 100 mg PO DAILY Patient Comments: take 1 tablet by mouth once daily polysaccharide iron complex [Ferrex 150] 150 mg iron capsule 150 mg PO BID acetaminophen [Tylenol Arthritis Pain] 650 mg tablet extended release 650 mg PO Q12H PRN (Reason: fever or pain) cholecalciferol (vitamin D3) 25 mcg (1,000 unit) capsule 5,000 unit PO DAILY ascorbic acid (vitamin C) 500 mg tablet 500 mg PO DAILY mecobalamin (vitamin B12) 1,000 mcg lozenge 1,000 mcg PO DAILY Rx Instructions: allow to dissolve in mouth OR may chew lightly before swallowing metoprolol succinate 25 mg tablet extended release 24 hr 25 mg PO DAILY Qty: 90 3RF isosorbide mononitrate 30 mg tablet extended release 24 hr 30 mg PO DAILY Qty: 90 3RF atorvastatin 40 mg tablet 40 mg PO DAILY Qty: 90 3RF Referrals / Follow Up: David Mace Chi, MD [Primary Care Provider] -
[2025-07-03 09:05] VITALS: BP 174/89; PULSE 105; RESP 16; TEMP 36.6; O2SAT 99
[2025-07-03 09:06] LABS: Anion Gap 17 (5-15); BUN 12 mg/dL (4-19); BUN/Creat Ratio 18.7 RATIO (10-20); Calcium,Total 9.6 mg/dL (7.6-11.0); Carbon Dioxide 20.2 mmol/L (21.0-32.0); Chloride 100 mmol/L (98-108); Estimated Creatinine Clearance 46.98 ml/min (50-250); Glucose 114 mg/dL (70-99); Potassium 3.7 mmol/L (3.3-5.1)
[2025-07-03] MEDS: Aspirin E.C. 81 MG Tablet PO (09:13)
[2025-07-03] MEDS: Senna/Docusate Sodium 1 Tablet 2 TABLET PO (09:20)
--- NOTE | 2025-07-03 10:03 | DCINST_ITS ---
Discharge Instructions DC O2, CPAP, BIPAP needs Home O2 Discharge instructions: No Dressing / Incision May shower in (days): 2 Additional Activity Instructions:: May shower or bathe on [day 3]. Do not scrub the incision or soak in the tub. Just wash with soap and let the water run over the incision. Gently pat dry with towel. Medications: Take your pain medication as directed. Refer to your discharge instruction sheet for a list of medications you are to take. Dressing / Incision Call your doctor if your incision/area has: Continuous Slow Oozing, Sudden Increased Bleeding, Increased Pain/ Swelling, Increased Redness, Foul Smelling Discharge and Swelling at the incision site Call your doctor if you observe: Fever of 101 or Higher, Shortness of breath, Dizziness, Fainting spells, Swelling in the ankles, Chest pain, Prolonged hiccupping and Increased palpitations (irregular heartbeat) Suture Line Care: Avoid Pulling/Pushing and Avoid Pinching/Bending Cleanse incision/area with: Keep Dressing Clean & Dry Additional Dressing/Incision Instructions:: When dressing is removed, wash and dry incision. Keep covered with a light bandage if it is rubbing against your clothing. Do not cover the incision with an airtight bandage. Change the bandage daily. Do not remove steri strips. The strips will fall off on their own. Follow Up Care Please Follow Up With: Deangelo Dhillon MD Test Results: Test results from this visit will be discussed in further detail at your follow- up appointment, if applicable. Discharge Plan Admission Admit Date/Time: 07/01/25 15:50 Attending Provider: Erik Jaquez Primary Care Provider: David Mace Chi Consulting Providers: Nallely Fischer; Rubia Fall; Lacho Llamas; Mg Jefferson; Max Newman; Josefa Delacruz; Raymond Franco; Roman Cotto; Deangelo Dhillon; Sameer Decker; Tho Rubalcava; Elver Dickerson; Jose Lopez; LoretaSameterrance; Skip,Juan; Vinay Melgar; Guanakito Soto NP; Maddison Sprague; Jose Alejo Discharge Orders/Prescriptions Prescriptions: Continued aspirin [Adult Aspirin Regimen] 81 mg tablet,delayed release (DR/EC) 81 mg PO QDAY venlafaxine [Effexor XR] 75 mg capsule,extended release 24hr 150 mg PO QDAY dexlansoprazole [Dexilant] 60 mg capsule,biphase delayed releas 60 mg PO QDAY losartan 100 mg tablet 100 mg PO DAILY Patient Comments: take 1 tablet by mouth once daily polysaccharide iron complex [Ferrex 150] 150 mg iron capsule 150 mg PO BID acetaminophen [Tylenol Arthritis Pain] 650 mg tablet extended release 650 mg PO Q12H PRN (Reason: fever or pain) cholecalciferol (vitamin D3) 25 mcg (1,000 unit) capsule 5,000 unit PO DAILY ascorbic acid (vitamin C) 500 mg tablet 500 mg PO DAILY mecobalamin (vitamin B12) 1,000 mcg lozenge 1,000 mcg PO DAILY Rx Instructions: allow to dissolve in mouth OR may chew lightly before swallowing metoprolol succinate 25 mg tablet extended release 24 hr 25 mg PO DAILY Qty: 90 3RF isosorbide mononitrate 30 mg tablet extended release 24 hr 30 mg PO DAILY Qty: 90 3RF atorvastatin 40 mg tablet 40 mg PO DAILY Qty: 90 3RF Referrals / Follow Up: Deangelo Dhillon MD [Med Staff - Active Staff] - Within 1 Month David Mace Chi, MD [Primary Care Provider] - Within 1 Week Disposition Disposition (needs filled in before D/C Order can be placed): Home, Self Care
[2025-07-03 10:05] VITALS: BP 151/97; PULSE 96; RESP 14; TEMP 36.7; O2SAT 96
--- NOTE | 2025-07-03 10:45 | CASEMGMT ---
ADRIANA MALLORY NOTE: Discharge order is in. ADRIANA CM to room. Pt resting in bed. She denies having any discharge needs, stating she is ready to go home. She states, though, that she has not been OOB since pacer was placed. She was made aware staff would get her up and ensure she is ambulating well/steady on her feet before she is discharged home. She voices appreciation. ADRIANA Head, made aware to ensure pt ambulating safely prior to discharge. Sarah SHINE RN CM
[2025-07-03 12:33] VITALS: BP 151/97; PULSE 96; RESP 14; TEMP 36.7; O2SAT 96
--- NOTE | 2025-07-03 14:31 | CHAPLAIN ---
Type of Pastoral Visit _x__ Initial Visit ___ Follow-up Visit ___ On-call Visit ___ General Patient Visit ___ Spiritual Assessment ___ Family Conference ___ Bereavement ___ Rapid Response ___ Code Blue ___ Other (describe below) Pastoral Care Referral From _x__ Patient ___ Family ___ Nurse ___ Physician ___ College Counselor ___ Corporate Officer ___ Other (describe below) Sacrament/Intervention _x__ Active listening ___ Anointing ___ Yarsanism ___ Bereavement ___ Communion ___ Eda exploration ___ ___ Life review ___ Prayer ___ Reconciliation ___ Sacrament of Sick _x__ Supportive presence ___ Wedding ___ Other (describe below) Pastoral Comments patient is ready to be discharged but is open to talk about her experience and her anticipated recovery; offer of support welcomed
--- NOTE | 2025-07-03 16:04 | PCM.DC.SUM ---
Providers Date of Admission: 07/01/25 Primary Care Physician: Dr. David Mace MD Consultations 07/01/25 19:35 Consult: Cardiology Routine Consulting Provider: [facility] Reason for Consult: bradycardia, heart block EMERGENT Consult: No MD Notified: Yes Date Notified: 07/01/25 Time Notified: 14:29 Method of Notification: Text Reason For Visit: SYNCOPE SECONDARY TO INTERMITTENT HEART BLOCK Diagnosis Discharge Diagnosis (1) Presence of cardiac pacemaker: Status: Acute Code(s): Z95.0 - Presence of cardiac pacemaker Medications at Discharge Home Medications dexlansoprazole 60 mg capsule,biphase delayed release (Dexilant) 60 mg PO QDAY reflux 05/01/18 aspirin 81 mg tablet,delayed release (Adult Aspirin Regimen) 81 mg PO QDAY heart health 05/02/18 losartan 100 mg tablet 100 mg PO DAILY blood pressure 01/25/22 acetaminophen 650 mg tablet,extended release (Tylenol Arthritis Pain) 650 mg PO Q12H PRN fever or pain 06/06/23 ascorbic acid (vitamin C) 500 mg tablet 500 mg PO DAILY vitamin 06/06/23 polysaccharide iron complex 150 mg iron capsule (Ferrex) 150 mg PO BID supplement 06/06/23 mecobalamin (vitamin B12) 1,000 mcg lozenges 1,000 mcg PO DAILY vitamin 03/04/24 metoprolol succinate 25 mg tablet,extended release 24 hr 25 mg PO DAILY blood pressure #90 tabs 03/05/24 isosorbide mononitrate 30 mg tablet,extended release 24 hr 30 mg PO DAILY heart #90 tabs 11/25/24 cholecalciferol (vitamin D3) 25 mcg (1,000 unit) capsule 5,000 unit PO DAILY vitamin 11/26/24 venlafaxine 75 mg capsule,extended release 24 hr (Effexor XR) 150 mg PO QDAY mental health 11/26/24 atorvastatin 40 mg tablet 40 mg PO DAILY cholesterol #90 tabs 03/10/25 Hospital Course Operations None Procedures - (Pacemaker placement) Summary of Care Provided Minutes Spent on Discharge: 37 Hospital Course: Per HPI: TRISTEN ZAMARRIPA, is a 89-year-old female history of GERD, depression, hypertension who presented to [facility] ED 07/01/2025 due to episodes of near syncope and lightheadedness at random that started last night. She at some point reported she lost consciousness while lying on her couch as well. In the ED she had a long pause/asystole episode and lost consciousness but recovered prior to the ED doc going to the room. She takes 25 metoprolol succinate but no other AV kenyon blockers and denied any chest pain, no history of stents but does note history of coronary artery disease managed medically. In the ED temp 98, heart rate documented at 71 with blood pressure 165/75, respiratory rate 18 pulse ox 100% on room air. Given the above patient had stat EKG, initially EKG was unremarkable however she was left on the EKG machine until she had another episode and she appeared to be in Mobitz type II AV block, pacer pads were placed and she was hooked up to external pacing and was requiring frequent pacing initially. Chest x-ray in the ED with mild cardiac enlargement but no acute process, CBC with white blood cell count 11.6, hemoglobin 11.8, BMP [], troponin 16. Cardiology contacted and recommended admission with cardiology consult and possible pacemaker placement. Hospitalist contacted for admission. Patient evaluated at bedside with family present, reportedly patient did begin to have these episodes last night and had a little bit of nausea, she thought she ate too much so did not seek medical attention, symptoms persisted today and to me she did not endorse any loss of consciousness but she had endorsed at another time. Denies any chest pain or shortness of breath, has a chronic morning cough, had little bit of nausea earlier but none at this time. She also noted maybe she had some ringing in her left ear recently but she also got new hearing aids and is not sure if it was that or not, not presently complaining of this. Hospital Course: The 1. Syncope secondary to Mobitz type II heart block/CAD/essential HTN/HLD?89-year-old female presented to the hospital with syncopal episodes and lightheadedness at home. She had an EKG on admission which captured a Mobitz type II AV block and cardiology was consulted. She had pacer pads placed in the ER and she was transferred to the ICU. At that time her beta-liya was held but she was continued on her losartan. She had a pacemaker placed on 07/02/2025 and pacemaker evaluation today demonstrated good capture and in discussion with cardiology her beta-liya was restarted as was her other blood pressure medications on discharge. She was cleared for discharge by cardiology and she was feeling better and I discussed with her the plan for discharge she expressed understanding the risk and benefits of going home and would like to go home today. I do recommend outpatient follow-up with her PCP as well as cardiology in the next couple weeks. She does have a follow-up in the pacemaker clinic next week I believe. 2. GERD, depression, anxiety are chronic medical conditions which complicate her care. Her home medications were continued where appropriate Physical Exam Narrative General: Alert, Oriented x3, Cooperative, No apparent distress HEENT: Atraumatic, PERRLA, EOMI, Normocephalic Oral: Moist Mucosa Neck: Supple, No JVD Lungs: Diminished, Normal air movement, No rhonchi, No wheeze, No rales Cardiovascular: Regular rate, Regular Rhythm, Normal S1, Normal S2, No murmurs Abdomen: Soft, Non Tender, Non-Distended, No Hepato-splenomegaly Extremities: No edema, Capillary Refill Less than 3 Seconds Skin: No rashes, No breakdown Musculoskeletal: No Tenderness to Palpation of Joints or Extremities Neurological: No focal neurological deficits, Motor Exam 5/5 strength throughout, Sensory exam intact to light touch and pain Psych/Mental Status: Normal Affect, Appropriate Weight / BMI Weight Weight: 163 lb 2.273 oz Body Mass Index (BMI) 28.0 ABG / Lab / Microbiology Data 07/03/25 06:50 07/03/25 06:50 Laboratory: Laboratory Results - last 24 hr 07/03/25 06:50: WBC 8.1, RBC 4.73, Hgb 13.2, Hct 40.8, MCV 86.3, MCH 27.9, MCHC 32.4, RDW Std Deviation 46.0 H, RDW Coeff of Jaquan 14.6, Plt Count 297, MPV 10.9, Immature Gran % (Auto) 0.500, Neut % (Auto) 71.0 H, Lymph % (Auto) 15.6 L, Ripley % (Auto) 11.3 H, Eos % (Auto) 1.4, Baso % (Auto) 0.2, Absolute Neuts (auto) 5.8, Absolute Lymphs (auto) 1.27, Nucleated RBC % 0, Sodium 137, Potassium 3.7, Chloride 100, Carbon Dioxide 20.2 L, Anion Gap 17 H, BUN 12, Creatinine 0.66 L, Estim Creat Clear Calc 46.98 L, Est GFR (MDRD) Non-Af 84, BUN/Creatinine Ratio 18.7, Glucose 114 H, Calcium 9.6 Radiography Diagnostic Testing: Radiology Impression Chest X-Ray 07/03/25 05:11 IMPRESSION: Unremarkable pacer appearance. No pneumothorax. Reading Location: [place] [id number] D/C Instructions May shower in (days): 2 Additional Activity Instructions: May shower or bathe on [day 3]. Do not scrub the incision or soak in the tub. Just wash with soap and let the water run over the incision. Gently pat dry with towel. Medications: Take your pain medication as directed. Refer to your discharge instruction sheet for a list of medications you are to take. Call your doctor if your incision/area has: Continuous Slow Oozing, Sudden Increased Bleeding, Increased Pain/ Swelling, Increased Redness, Foul Smelling Discharge and Swelling at the incision site Call your doctor if you observe: Fever of 101 or Higher, Shortness of breath, Dizziness, Fainting spells, Swelling in the ankles, Chest pain, Prolonged hiccupping and Increased palpitations (irregular heartbeat) Suture Line Care: Avoid Pulling/Pushing and Avoid Pinching/Bending Cleanse incision/area with: Keep Dressing Clean & Dry Additional Dressing/Incision Instructions: When dressing is removed, wash and dry incision. Keep covered with a light bandage if it is rubbing against your clothing. Do not cover the incision with an airtight bandage. Change the bandage daily. Do not remove steri strips. The strips will fall off on their own. DC O2, CPAP, BIPAP Needs Home O2 Discharge instructions: No Please Follow Up With: Deangelo Dhillon MD When: Pacer follow-up on July 10 at 2 PM Meaningful Use Info Meaningful Use Meaningful Use Diagnoses (Choose all that apply): None applicable Discharge Plan Admission Admit Date/Time: 07/01/25 15:50 Attending Provider: Erik Jaquez Primary Care Provider: David Mace Chi Consulting Providers: Nallely Fischer; Rubia Fall; Lacho Llamas; Mg Jefferson; Max Newman; Josefa Delacruz; Raymond Franco; Roman Cotto; Deangelo Dhillon; Sameer Decker; Tho Rubalcava; Elver Dickerson; Jose Lopez; Jamila Kan; Juan Valdivia; Vinay Melgar; Guanakito Soto [employer]; Maddison Sprague PA; Jose Gaona Discharge Orders/Prescriptions Prescriptions: Continued aspirin [Adult Aspirin Regimen] 81 mg tablet,delayed release (DR/EC) 81 mg PO QDAY venlafaxine [Effexor XR] 75 mg capsule,extended release 24hr 150 mg PO QDAY dexlansoprazole [Dexilant] 60 mg capsule,biphase delayed releas 60 mg PO QDAY losartan 100 mg tablet 100 mg PO DAILY Patient Comments: take 1 tablet by mouth once daily polysaccharide iron complex [Ferrex 150] 150 mg iron capsule 150 mg PO BID acetaminophen [Tylenol Arthritis Pain] 650 mg tablet extended release 650 mg PO Q12H PRN (Reason: fever or pain) cholecalciferol (vitamin D3) 25 mcg (1,000 unit) capsule 5,000 unit PO DAILY ascorbic acid (vitamin C) 500 mg tablet 500 mg PO DAILY mecobalamin (vitamin B12) 1,000 mcg lozenge 1,000 mcg PO DAILY Rx Instructions: allow to dissolve in mouth OR may chew lightly before swallowing metoprolol succinate 25 mg tablet extended release 24 hr 25 mg PO DAILY Qty: 90 3RF isosorbide mononitrate 30 mg tablet extended release 24 hr 30 mg PO DAILY Qty: 90 3RF atorvastatin 40 mg tablet 40 mg PO DAILY Qty: 90 3RF Referrals / Follow Up: Deangelo Dhillon MD [Med Staff - Active Staff] - Within 1 Month David Mace Chi, MD [Primary Care Provider] - Within 1 Week Disposition Disposition (needs filled in before D/C Order can be placed): Home, Self Care Charges/Coding Visit Charges Inpatient E&M: 01146 Disch Hosp >30min
== END 2025-07-03 13:14 | disposition home or self-care (01) | DRG 244 ==
LOC: ED 15:27 → ICU 15:55 → PCU 07-02 16:35
PROVIDERS: Admitting Provider Internal Medicine; Emergency Provider Emergency Medicine; PCP Family Medicine Geriatric Medicine; Visit Provider Family Medicine
DX: I44.1 Atrioventricular block, second degree (principal); E78.5 Hyperlipidemia, unspecified; F32.A Depression, unspecified; I10 Essential (primary) hypertension; I25.10 Atherosclerotic heart disease of native coronary artery without angina pectoris; K21.9 Gastro-esophageal reflux disease without esophagitis; H93.12 Tinnitus, left ear; F41.9 Anxiety disorder, unspecified; Z82.49 Family history of ischemic heart disease and other diseases of the circulatory system; Z79.899 Other long term (current) drug therapy; Z79.82 Long term (current) use of aspirin; Z90.710 Acquired absence of both cervix and uterus
CPT/HCPCS: 33208; 36415; 71045; 71047; 80048; 83735; 84443; 84484; 85025; 92953; 93005; 99152; 99153; 99285; A4216; C1894; J2405